=== PATIENT | female | born 1975 | race Caucasian/White ===

== ENCOUNTER 2020-03-24 10:00 | Inpatient (IN) | payer OTHER, SELFPAY ==
[2020-03-24] VITALS (15 sets, daily range): BP systolic 92–155; BP diastolic 39–95; PULSE 74–135; RESP 15–26; TEMP 37–39.4; O2SAT 95–100; BMI 53.7; BMI 21.0
--- NOTE | 2020-03-24 10:17 | US_ITS ---
STUDY: ABDOMINAL ULTRASOUND - RIGHT UPPER QUADRANT REASON FOR VISIT: Female, 44 years old pain TECHNIQUE: Ultrasound evaluation of the right upper quadrant was performed with real-time and static connor-scale imaging. TECHNICAL QUALITY: Adequate. COMPARISON: None. FINDINGS: Liver: The liver is enlarged and measures 20.6 cm. There is normal echogenicity of the liver. The bile ducts are within normal limits. There is hepatic color flow. The direction of portal flow is hepatopetal. There is no demonstrated mass lesion. Gallbladder: There is a mild degree of distended gallbladder. The gallbladder wall measures 5 mm. There is a positive sonographic Roque''s sign. There is no pericholecystic fluid. There are no gallstones. Common Bile Duct (C.B.D.): The common bile duct measures 4.0 mm. Pancreas: Normal size of the head, body and tail of the pancreas. There is normal echogenicity of the pancreas. There is no demonstrated pancreatic mass or cyst. Right Kidney: Normal size of the right kidney. The right kidney measures 12 cm x 5.5 cm x 4.9 cm. Normal renal cortex. The right cortex measures 1.8 cm. There is no demonstrated renal mass or cyst. There is no right hydronephrosis. US/Gallbladder IMPRESSION: Distended gallbladder with thickened wall. No evidence of gallstones. Hepatomegaly. Electronically Signed: Ward Crouch, at 12:14 EDT , Service support ,
--- NOTE | 2020-03-24 10:17 | EKG12_ITS ---
Test Reason : Blood Pressure : / mmHG Vent. Rate : 096 BPM Atrial Rate : 096 BPM P-R Int : 160 ms QRS Dur : 088 ms QT Int : 370 ms P-R-T Axes : 005 -07 003 degrees QTc Int : 467 ms Normal sinus rhythm Poor R wave progression Confirmed by CT MELENDEZ, DIANA ([id number]), purchase request editor CARLOS ALBERTO COSTA ([id number]) on 03/25/2020 9:19:11 AM Referred By: CHALINO Confirmed By:DIANA FOFANA MD
--- NOTE | 2020-03-24 10:20 | ED.DCSUM_ITS ---
History of Present Illness Chief Complaint: Abd Pain Informant: Patient Narrative: 44-year-old female arrives with right upper quadrant pain of 3-day duration. Symptoms began on Sunday. Her last solid food was yesterday at noon. She had a shake for dinner. She states that eating makes her upper abdomen hurt worse. She notes diarrhea. She notes a fever of 102. She states she is short of breath from the pain. She denies any cough or rashes. She notes she had a hiatal hernia repair in the past. Reportedly had gone to [place] for this and while there had possible ventricular tachycardia and returned home on amiodarone and Plavix. She saw cardiology here who wanted her to see electrophysiology in [place]. She went to [place] and is on metoprolol. - Past Medical History (1) Hyperlipidemia Status: Chronic (2) Hypertension Status: Chronic (3) Nonrheumatic mitral (valve) insufficiency Status: Chronic (4) Obesity (BMI 30.0-34.9) Status: Chronic (5) Paroxysmal ventricular tachycardia Status: Chronic Past Medical History - Allergies and Home Meds Allergies/Adverse Reactions: Allergies No Known Allergies Allergy (Verified 03/24/20 10:01) Prior records reviewed: Yes Surgical History: - - Hiatal hernia repair Lives: With Family Smoking Status: Never smoker Drugs: None Review of Systems General: Reports: Fever. Denies: Chills, Sweats Eyes: Denies: Visual changes - bilaterally, Diplopia ENT: Denies: Rhinorrhea, Sore throat Cardiovascular: Denies: Chest pain, Palpitations Respiratory: Denies: Dyspnea, Cough, Dyspnea on exertion Gastrointestinal: Reports: Abdominal pain, Nausea, Diarrhea. Denies: Vomiting, Melena, Hematochezia Genitourinary: Denies: Dysuria, Hematuria, Frequency Musculoskeletal: Denies: Back pain, Extremity Pain Skin: Denies: Rash, Wounds Neurological: Denies: Headache, Weakness, Numbness Physical Exam Vital Signs/Narrative: Vital Signs Temp Pulse Resp BP Pulse Ox 03/24/20 10:01 98.6 F 110 H 18 147/95 H 99 Inital Vital Signs reviewed: Yes General: Well nourished, Well developed, Obese, No Acute Distress Head: Normocephalic, Atraumatic Eyes: Perrl, EOMI ENT: Moist mucous membranes, No rhinorrhea Neck: Supple, Nontender Cardiovascular: Regular rate, Regular rhythm, No murmurs Respiratory: No distress, CTA bilaterally, Chest nontender Abdomen: Soft, Nondistended, Normal bowel sounds, Tender - Tender palpation right upper quadrant epigastric and right middle quadrants., Guarding Back: Nontender, Normal Inspection Extremities: Nontender, No edema Skin: Normal color, No rash Neurological: Alert, Oriented x3, Cranial nerves II-XII grossly intact, Normal Strength, Normal Sensation Psychological: Normal affect, Normal Mood Diagnostic/Tx/Re-eval Clinical Impression(s) from Imaging Studies Gallbladder Ultrasound 03/24/20 10:17 IMPRESSION: Distended gallbladder with thickened wall. No evidence of gallstones. Hepatomegaly. Electronically Signed: Ward Crouch, at 12:14 EDT , Service support , Chest X-Ray 03/24/20 10:35 IMPRESSION: Mild cardiomegaly. The lungs are clear. Electronically Signed: Ward Crouch, at 10:47 EDT , Service support , Abdomen/Pelvis CT 03/24/20 12:03 IMPRESSION: Mild hepatomegaly with diffuse fatty infiltration. Mildly distended gallbladder with the minimal thickening of the gallbladder wall. Findings in keeping with acute retrocecal appendicitis with appendicolith. N.B. : The above information has been verbally conveyed by Ward Crouch to Trace De Jesus MD, on 03/24/2020 12:51:24 (ET). Electronically Signed: Ward Crouch, at 12:53 EDT , Service support , Laboratory Last Values WBC 15.9 K/mm3 (4.4-11.0) H 03/24/20 10:35 RBC 5.02 M/mm3 (4.2-5.4) 03/24/20 10:35 Hgb 15.4 g/dL (12.0-15.0) H 03/24/20 10:35 Hct 45.3 % (37-47) 03/24/20 10:35 MCV 90.2 fL (81-99) 03/24/20 10:35 MCH 30.7 pg (27.0-32.0) 03/24/20 10:35 MCHC 34.0 g/dL (32-36) 03/24/20 10:35 RDW Std Deviation 44.9 fl (35.1-43.9) H 03/24/20 10:35 RDW Coeff of Omid 13.5 % (11.6-14.6) 03/24/20 10:35 Plt Count 230 K/mm3 (150-450) 03/24/20 10:35 MPV 9.7 fl (6.2-12.0) 03/24/20 10:35 Immature Gran % (Auto) 0.700 % (0.0-0.9) 03/24/20 10:35 Neut % (Auto) 90.8 % (47-70) H 03/24/20 10:35 Lymph % (Auto) 3.5 % (19-41) L 03/24/20 10:35 [place] % (Auto) 4.5 % (0-10) 03/24/20 10:35 Eos % (Auto) 0.4 % (0-5) 03/24/20 10:35 Baso % (Auto) 0.1 % (0-1) 03/24/20 10:35 Absolute Neuts (auto) 14.4 X10^3/uL (2.0-7.7) H 03/24/20 10:35 Absolute Lymphs (auto) 0.55 X10^3/uL (0.83-4.51) L 03/24/20 10:35 Nucleated RBC % 0 % (0-5) 03/24/20 10:35 Differential Comment SCANNED 03/24/20 10:35 Sodium 136 mmol/L (136-145) 03/24/20 10:35 Potassium 3.6 mmol/L (3.5-5.1) 03/24/20 10:35 Chloride 102 mmol/L (98-107) 03/24/20 10:35 Carbon Dioxide 25.0 mmol/L (21.0-32.0) 03/24/20 10:35 Anion Gap 9 (5-15) 03/24/20 10:35 BUN 6 mg/dL (7-18) L 03/24/20 10:35 Creatinine 0.86 mg/dL (0.55-1.02) 03/24/20 10:35 Estim Creat Clear Calc 64.65 ml/min 03/24/20 10:35 Est GFR (MDRD) Af Amer 91 mL/min (>60) 03/24/20 10:35 Est GFR (MDRD) Non-Af 75 mL/min (>60) 03/24/20 10:35 BUN/Creatinine Ratio 6.9 RATIO (10-20) L 03/24/20 10:35 Glucose 162 mg/dL (74-106) H 03/24/20 10:35 Calcium 8.5 mg/dL (8.5-10.1) 03/24/20 10:35 Total Bilirubin 0.60 mg/dL (0.20-1.00) 03/24/20 10:35 AST 13 U/L (15-37) L 03/24/20 10:35 ALT 17 U/L (13-56) 03/24/20 10:35 Alkaline Phosphatase 80 U/L (45-117) 03/24/20 10:35 Total Protein 7.7 g/dL (6.4-8.2) 03/24/20 10:35 Albumin 3.1 g/dL (3.2-5.0) L 03/24/20 10:35 Globulin 4.6 g/dL (2.2-4.2) H 03/24/20 10:35 Albumin/Globulin Ratio 0.7 RATIO (0.9-2.4) L 03/24/20 10:35 Lipase 33 U/L (73-393) L 03/24/20 10:35 - EKG Initial EKG Interpretation: Sinus Rhythm - KG demonstrates a normal sinus rhythm at a rate of 96 without concerning features of ACS or ectopy - Medical Decision Making Patient has a 16,000 white count. Gallbladder ultrasound was obtained which does not show acute cholecystitis. Therefore a CT of the abdomen pelvis was obtained which demonstrates a retrocecal appendicitis with appendicolith. She is has received Zosyn, morphine, Zofran, and IV fluids. She is remained n.p.o. On-call surgery Dr. Pérez was contacted. Patient's Covid has returned positive. The patient was seen in the emergency department by infectious disease. ED Disposition - Plan for ED Patient: Disposition: [facility] Diagnosis: Acute appendicitis, COVID-19
--- NOTE | 2020-03-24 10:35 | RAD_ITS ---
STUDY: X-RAY CHEST REASON FOR EXAM: Female, 44 years old. Pt thinks she is having a gallbladder attach as well as an appendicitis. Pain since Sunday TECHNIQUE: Single AP portable view of the chest. COMPARISON: None. FINDINGS: The lungs are clear and expanded. There is no demonstrated pleural abnormality. There is mild cardiac enlargement. Normal mediastinum and duane. Normal visualized pulmonary arteries. Normal visualized aortic arch and descending thoracic aorta. Normal visualized thoracic spine. Normal visualized ribs, clavicles, and shoulders. There is no demonstrated abnormality of the visualized soft tissue structures of the upper abdomen. RAD/Chest 1 View (Portable) IMPRESSION: Mild cardiomegaly. The lungs are clear. Electronically Signed: Ward Crouch, at 10:47 EDT , Service support ,
[2020-03-24] MEDS: 0.9% Normal Saline 1,000 ML 1000 ML IV (10:44)
[2020-03-24] MEDS: Morphine 4 MG/ML Syringe IV ×3 (10:45→15:57)
[2020-03-24] MEDS: Ondansetron 4 MG/2 ML Vial IV (10:45)
[2020-03-24 10:49] LABS: Absolute Lymphocyte Count 0.55 X10^3/uL (0.83-4.51); Absolute Neutrophil Count 14.4 X10^3/uL (2.0-7.7); Basophil# 0.02 X10^3/uL; Basophil% 0.1 % (0-1); Eosinophil# 0.07 X10^3/uL; Eosinophils% 0.4 % (0-5); Hematocrit 45.3 % (37-47); Hemoglobin 15.4 g/dL (12.0-15.0); Lymphocyte # 0.55 X10^3/ul (4.0); Lymphocyte % 3.5 % (19-41); Mean Corpuscular Hgb 30.7 pg (27.0-32.0); Mean Corpuscular Volume 90.2 fL (81-99); Mean Platelet Vol. 9.7 fl (6.2-12.0); Monocyte# 0.72 X10^3/uL; Monocyte% 4.5 % (0-10); NRBC Flagged by Analyzer 0 % (0-5); Neutrophil # 14.41 X10^3/uL (2.7-7.7); Neutrophil % 90.8 % (47-70); POSITIVE DIFFERENTIAL YES; POSITIVE MORPHOLOGY YES; Platelet Count 230 K/mm3 (150-450); RBC Distribution Width CV 13.5 % (11.6-14.6); RBC Distribution Width SD 44.9 fl (35.1-43.9); Red Blood Count 5.02 M/mm3 (4.2-5.4); White Blood Count 15.9 K/mm3 (4.4-11.0)
[2020-03-24 10:56] LABS: Differential Indicated SCAN CRITERIA MET
[2020-03-24 11:03] LABS: ALB/GLOB Ratio 0.7 RATIO (0.9-2.4); AST(SGOT) 13 U/L (15-37); Alanine Aminotransfer ALT/SGPT 17 U/L (13-56); Albumin, Serum 3.1 g/dL (3.2-5.0); Alkaline Phosphatase 80 U/L (45-117); Anion Gap 9 (5-15); BUN 6 mg/dL (7-18); BUN/Creat Ratio 6.9 RATIO (10-20); Calcium,Total 8.5 mg/dL (8.5-10.1); Chloride 102 mmol/L (98-107); Creatinine, Serum 0.86 mg/dL (0.55-1.02); EST Glomerular Filtration Rate 75 mL/min (>60); Est Glom Filt Rate - Afr Amer 91 mL/min (>60); Estimated Creatinine Clearance 64.65 ml/min; Globulin 4.6 g/dL (2.2-4.2); Glucose 162 mg/dL (74-106); Lipase 33 U/L (73-393); Potassium 3.6 mmol/L (3.5-5.1); Protein, Total 7.7 g/dL (6.4-8.2); Sodium Level 136 mmol/L (136-145)
[2020-03-24 11:23] LABS: Differential Comment SCANNED
[2020-03-24] MEDS: 0.9% Normal Saline 1,000 ML 125 ML IV (12:00)
--- NOTE | 2020-03-24 12:03 | CT_ITS ---
STUDY: CT ABDOMEN AND PELVIS WITH CONTRAST REASON FOR EXAM: Female, 44 years old. RUQ ABD PAIN X 3 DAYS, DIARRHEA, FEVER, SOB FROM PAIN. RADIATION DOSAGE (If Supplied By Facility): CTDIvol = ( 15.385 ) mGy, DLP = ( 1274.70 ) mGycm TECHNIQUE: Transaxial images were obtained from the dome of the diaphragm to the symphysis pubis without oral contrast. IV 100mL Isovue-300 was administered. Sagittal and coronal images were reconstructed. Individualized dose optimization techniques were used for this CT. COMPARISON: None. FINDINGS: Increased markings at the lung bases more prominent at the left lung base follow-up is recommended. The visualized portions of the heart are within normal limits. There is decreased attenuation of the liver consistent with steatosis. Mildly distended gallbladder. I suspect sludge within the gallbladder lumen. Mild increased markings in the gallbladder fossa. Normal spleen. Normal pancreas. Normal bilateral adrenal glands. Normal right kidney. Normal left kidney. Normal visualized stomach. Normal small intestine. There are scattered colonic diverticula consistent with diverticulosis. There is a tubular, thick-walled appendix (>7mm), consistent with acute appendicitis. Appendicolith is seen within the appendix. The appendix is retrocecal. Increased markings are seen in the right lower quadrant adjacent to the cecum. Normal abdominal aorta. Normal inferior vena cava. Normal retroperitoneum. Normal urinary bladder. There is a 3.3 cm x 2.5 cm right ovarian cyst. Normal abdominal wall. Normal osseous structures. CT/Abdomen/Pelvis W IV Cont ONLY IMPRESSION: Mild hepatomegaly with diffuse fatty infiltration. Mildly distended gallbladder with the minimal thickening of the gallbladder wall. Findings in keeping with acute retrocecal appendicitis with appendicolith. N.B. : The above information has been verbally conveyed by Ward Crouch to Trace De Jesus MD, on 03/24/2020 12:51:24 (ET). Electronically Signed: Ward Crouch, at 12:53 EDT , Service support ,
[2020-03-24 13:35] LABS: Mucous, Urine 0 SEEN /hpf (<or=2+)
[2020-03-24 13:38] LABS: Color, Urine Straw (Yellow); Glucose, Dipstick Normal (Normal); Ketone-Dipstick 15 mg/dl (Negative); Leukocyte Esterase-Dipstick Negative /ul (Negative); Nitrite-Dipstick Negative (Negative); Occult Blood-Urine 10 /ul (Negative); Protein-Dipstick 30 mg/dl (Negative); Specific Gravity, Urine 1.005 (1.002-1.030); Urine Bilirubin Dipstick Negative (Negative); Urine Clarity Clear (Clear); Urine Urobilinogen Normal (Normal); Urine pH 6.5 (5.0 - 8.0)
[2020-03-24 13:46] LABS: Bacteria RARE /hpf (None Seen); Squamous Epithelial Cells - UA 0-5 SEEN /hpf (5-10); White Blood Cells 0-5 SEEN /hpf (0-5)
[2020-03-24 13:47] LABS: Red Blood Cells-Urine 0-5 SEEN /hpf (0-5)
--- NOTE | 2020-03-24 14:20 | APP_PTH ---
PATIENT: ZAID HOLMAN LOC: [facility] U#:[id number] AGE/SX: 44/F ROOM: [facility] [place] RE03/24/[address]: Dr. Rk Pérez MD : 1975 BED: 1 DIS: 03/27/2020 SPEC #: [id number] RECD: 03/24/20 20:21 STATUS: LATRICE REAnton #: [id number] AMANDA: 03/24/20 14:[address]: Rk Pérez DEPT: SURGICAL PATHOLOGY RECD BY: Azam Correa ENTERED: 03/25/20 07:04 SP TYPE: APPENDIX OTHR DR: MD Dr. Pushpa Woody MD Dr. Robert Leininger, MD Tissues: Appendix, NOS Procedures: Surgery Specimen Level III HEADER OPERATION: Laparoscopic appendectomy PRE-OP DIAGNOSIS: Acute appendicitis TISSUE SUBMITTED: Appendix MICROSCOPIC DIAGNOSIS Appendix, appendectomy: Acute ruptured, hemorrhagic and purulent appendicitis and periappendicitis. RICKY:consuelo 03/26/20 MICROSCOPIC DESCRIPTION Slides are reviewed. GROSS DESCRIPTION Received in fixative is one container labeled with the patient's name and designated appendix. The specimen consists of a J-shaped appendix measuring 9.5 cm in length and up to 1.5 cm in diameter. The attached periappendiceal adipose tissue measures up to 2.5 cm in width. The appendix is congested and hemorrhagic and covered with connor, purulent exudate. The attached periappendiceal adipose tissue also shows extensive congestion and hemorrhage and covered with connor, purulent exudate. No obvious perforation is identified. The lumen contains fecal material. The mucosa is congested and hemorrhagic. No fecalith is identified. Campground Manager sections are submitted in one cassette. / RICKY:consuelo 03/25/20 TC:2 [facility]: [id number]
[2020-03-24 14:37] LABS: International Normalized Ratio 1.1; Prothrombin Time (Protime)PT. 14.1 SECONDS (11.7-14.9)
--- NOTE | 2020-03-24 14:38 | PCM.CONS.GEN ---
Problem List (1) Acute appendicitis Status: Acute (2) COVID-19 Status: Acute (3) Obesity (BMI 30.0-34.9) Status: Chronic (4) Hyperlipidemia Status: Chronic (5) Hypertension Status: Chronic Reason for Consult Date of Consultation: 03/24/20 Reason for Consultation: COVID-19, preoperative and postoperative medical management. History of Present Illness: The patient is a 44 year old F with past medical history as mentioned above presented to the emergency room because of abdominal pain. Her symptoms started 4 days ago with abdominal pain,, right-sided upper abdominal pain, intermittent, dull aching pain, extends down to the right lower quadrant region, aggravated by taking a deep breath and movement as well as subjective fever and without relieving factors. She denied nausea or vomiting. She denied urinary symptoms. She stated that on March 14, 2020, she had a spike of fever and started having mild cough. She states that her parents were sick around the same time and they had fever as well. They were not tested for COVID-19. Today, she denied significant cough, denies shortness of breath. She denied sore throat, sinus nasal congestion. She denied chest pain. In the emergency department, highest temperature was 99.5 Fahrenheit, was slightly tachycardic, blood pressure was stable, pulse ox was 95% on room air. Routine blood work was remarkable for leukocytosis with lymphopenia, blood glucose of 162, LFT was unremarkable. Lipase was normal. Urinalysis showed no evidence of acute cystitis. COVID-19 PCR was positive. Chest x-ray showed cardiomegaly, probable left base atelectasis, no obvious infiltrate. Ultrasound gallbladder revealed normal bile ducts, moderately distended gallbladder, positive Roque sign, no gallstones and no pericholecystic fluid, CBD diameter was [address] scan abdomen and pelvis with IV contrast revealed acute retrocecal appendicitis with appendicolith. She is being admitted for acute appendicitis for surgery and also for COVID-19 for treatment. Past Medical History Past Medical History (Chronic Problems): Chronic Problems (Last Updated 07/17/17 @ 15:40 by Giselle Becerra) Hypothyroidism (Chronic) Obesity (BMI 30.0-34.9) (Chronic) Nonrheumatic mitral (valve) insufficiency (Chronic) Hyperlipidemia (Chronic) Paroxysmal ventricular tachycardia (Chronic) Hypertension (Chronic) Medical History: Medical History (Last Updated 07/17/17 @ 15:40 by Giselle Becerra) Obesity (BMI 30.0-34.9) (Chronic) E66.9 Nonrheumatic mitral (valve) insufficiency (Chronic) I34.0 Hyperlipidemia (Chronic) E78.5 Paroxysmal ventricular tachycardia (Chronic) I47.2 Hypertension (Chronic) I10 Hiatal hernia K44.9 Hypothyroidism E03.9 Allergies No Known Allergies Allergy (Verified 03/24/20 10:01) Home Medications: Ambulatory Orders Medication Instructions Recorded amlodipine 5 mg tablet 5 mg PO DAILY 07/17/17 Aspirin [Aspirin EC] 81 mg PO DAILY@0800 03/24/20 Ibuprofen 800 mg PO DAILY PRN PRN 03/24/20 Levothyroxine Sodium [Synthroid] 180 mcg PO DAILY 03/24/20 Metoprolol(XL)Succ [Toprol Xl 50 mg PO DAILY 03/24/20 (Beta Mady)] Surgical History: - - Hiatal hernia repair. 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 Paloma Pepe MD) Father Heart disease Sister Hypertension Review of Systems Constitutional: Reports: Fever. Denies: Anorexia, Chills, Weakness Eyes: Denies: Blurred vision, Double vision, Drainage, Redness HEENT: Denies: Difficulty Hearing, Ear Pain, Eye Pain, Nasal Congestion, Sore Throat Cardiovascular: Denies: Chest Pain, Chest Pressure, Edema, Heaviness, Light Headedness, Palpitations, Syncope Respiratory: Reports: Cough. Denies: Hemoptysis, Pleuritic Pain, Shortness of Breath, Sputum production, Wheezing Gastrointestinal: Reports: Abdominal Pain. Denies: Constipation, Diarrhea, Nausea, Vomiting Genitourinary: Denies: Dysuria, Frequency, Hematuria Musculoskeletal: Denies: Arm Pain, Back Pain, Foot Pain Skin: Denies: Dryness, Rash Neurological: Denies: Balance problems, Double vision, Change in Speech, Slurred speech, Confusion, Headaches, Numbness Psychiatric: Denies: Anxiety, Depression Endocrine: Denies: Change in Body Habitus, Polydipsia, Polyuria Patient Problems: Active and Suspected Problems (Last Updated 07/17/17 @ 15:40 by Giselle Becerra) Acute appendicitis (Acute) COVID-19 (Acute) - Physical Exam Vitals/I&O's: Vital Signs Temp Pulse Resp BP Pulse Ox 99.1 F 99 18 134/62 H 95 03/24/20 13:35 03/24/20 13:35 03/24/20 13:35 03/24/20 13:35 03/24/20 13:35 Oxygen Delivery Method Room Air Weight: 294 lb Body Mass Index (BMI) 53.7 Intake and Output for Last 24 Hours 03/22/20 03/23/20 03/24/20 23:59 23:59 23:59 Intake Total 1000 / 1000 Balance 1000 / 1000 General: Alert, Oriented x3, Cooperative, No apparent distress HEENT: Atraumatic, PERRLA, EOMI, Normocephalic Oral: Moist Mucosa, No Gingival or Mucosal Lesions/ Ulcerations Neck: Supple, No JVD, Negative Carotid Bruits, Trachea Midline, Thyroid Normal Size and Texture Lungs: Clear to auscultation, No rhonchi, No wheeze, No rales, Diminished, - - Diminished breath sounds at the bases, otherwise clear. Cardiovascular: Regular rate, Regular Rhythm, Normal S1, Normal S2, PMI Normal, Tachycardic Abdomen: Bowel Sounds Present, Soft, Non-Distended, No Hepato-splenomegaly, Obese, Tender - Right lower quadrant/right lumbar tenderness, rebound tenderness, guarding. Extremities: No clubbing, No cyanosis, No edema Skin: No rashes, No breakdown Lymphatic: No Cervical, Supraclavicular, or Inguinal Adenopathy Neurological: Cranial nerves II-XII grossly intact, Motor Exam 5/5 strength throughout Psych/Mental Status: Normal Affect, Appropriate, Alert and oriented to time, place, person, mood and affect Laboratory Results 03/24/20 10:35: COVID-19 (SENDY) Detected 03/24/20 10:35: WBC 15.9 H, RBC 5.02, Hgb 15.4 H, Hct 45.3, MCV 90.2, MCH 30.7, MCHC 34.0, RDW Std Deviation 44.9 H, RDW Coeff of Omid 13.5, Plt Count 230, MPV 9.7, Immature Gran % (Auto) 0.700, Neut % (Auto) 90.8 H, Lymph % (Auto) 3.5 L, [place] % (Auto) 4.5, Eos % (Auto) 0.4, Baso % (Auto) 0.1, Absolute Neuts (auto) 14.4 H, Absolute Lymphs (auto) 0.55 L, Nucleated RBC % 0, Differential Comment SCANNED 03/24/20 10:35: Sodium 136, Potassium 3.6, Chloride 102, Carbon Dioxide 25.0, Anion Gap 9, BUN 6 L, Creatinine 0.86, Estim Creat Clear Calc 64.65, Est GFR (MDRD) Af Amer 91, Est GFR (MDRD) Non-Af 75, BUN/Creatinine Ratio 6.9 L, Glucose 162 H, Calcium 8.5, Total Bilirubin 0.60, AST 13 L, ALT 17, Alkaline Phosphatase 80, Total Protein 7.7, Albumin 3.1 L, Globulin 4.6 H, Albumin/Globulin Ratio 0.7 L, Lipase 33 L 03/24/20 10:35: PT Pending, INR Pending, D-Dimer Quant (PE/DVT) Pending 03/24/20 10:35: Troponin I Pending 03/24/20 13:20: Urine Color Straw, Urine Clarity Clear, Urine pH 6.5, Ur Specific [place] 1.005, Urine Protein 30 H, Urine Glucose (UA) Normal, Urine Ketones 15 H, Urine Occult Blood 10 H, Urine Nitrite Negative, Urine Bilirubin Negative, Urine Urobilinogen Normal, Ur Leukocyte Esterase Negative, Urine RBC 0-5 SEEN, Urine WBC 0-5 SEEN, Ur Squamous Epith Cells 0-5 SEEN, Urine Bacteria RARE, Urine Mucus 0 SEEN Clinical Impression(s) from Imaging Studies Gallbladder Ultrasound 03/24/20 10:17 IMPRESSION: Distended gallbladder with thickened wall. No evidence of gallstones. Hepatomegaly. Electronically Signed: Ward Crouch, at 12:14 EDT , Service support , Chest X-Ray 03/24/20 10:35 IMPRESSION: Mild cardiomegaly. The lungs are clear. Electronically Signed: Ward Crouch, at 10:47 EDT , Service support , Abdomen/Pelvis CT 03/24/20 12:03 IMPRESSION: Mild hepatomegaly with diffuse fatty infiltration. Mildly distended gallbladder with the minimal thickening of the gallbladder wall. Findings in keeping with acute retrocecal appendicitis with appendicolith. N.B. : The above information has been verbally conveyed by Ward Crouch to Trace De Jesus MD, on 03/24/2020 12:51:24 (ET). Electronically Signed: Ward Crouch, at 12:53 EDT , Service support , ADDENDUM: 03/24/20 1300 IMPRESSION: Mild hepatomegaly with diffuse fatty infiltration. Mildly distended gallbladder with the minimal thickening of the gallbladder wall. Findings in keeping with acute retrocecal appendicitis with appendicolith. N.B. : The above information has been verbally conveyed by Ward Crouch to Trace De Jesus MD, on 03/24/2020 12:51:24 (ET). Electronically Signed: Ward Crouch, at 12:53 EDT , Service support , Current Medications Sodium Chloride () 1,000 mls @ 125 mls/hr IV .Q8H JESUSITA Last Admin: 03/24/20 12:00 Dose: 125 mls/hr Documented by: Assessment/Plan All Active Problems (Last Updated 07/17/17 @ 15:40 by Giselle Becerra) Acute appendicitis (Acute) COVID-19 (Acute) This is a 44 years old female patient presented to the emergency room because of abdominal pain, found to have acute retrocecal appendicitis and she is going for surgery, found to have COVID-19 positive and I was asked to see the patient for COVID-19, preoperative and postoperative medical management. #1 acute retrocecal appendicitis/sepsis: Patient was tachycardic, having leukocytosis with source of infection. Ultrasound gallbladder and CT scan abdomen pelvis reviewed. Currently, she is afebrile, slightly tachycardic, blood pressure stable, pulse ox is maintained on room air. EKG revealed sinus tachycardia, no other acute findings. Chest x-ray with mild cardiomegaly, no obvious infiltrate. General surgery is on the case and patient is going for surgery. #2 acute COVID-19 pneumonia: Apparently, patient started having symptoms of fever and cough on March 14, 2020, her parents were sick at the same time but nobody was tested for COVID-19. Currently, she denied shortness of breath, reported mild cough. Chest x-ray reviewed as above. D-dimer was elevated. Plan: CTA chest to rule out PE, pro time and INR, troponin, BNP, start IV Decadron, infectious disease consult. #3 hyperglycemia: Without history of diabetes. Blood glucose is 162. Plan: Check hemoglobin A1c, Accu-Cheks every 6 hours, insulin sliding scale as patient will be on IV Decadron. #4 hypertension: Blood pressure stable, continue metoprolol and Norvasc. #5 hypothyroidism: Continue levothyroxine. #6 history of paroxysmal VT: Currently, she is in sinus tachycardia. Blood pressure stable. Patient denied any chest pain or shortness of breath. Serum electrolytes are within normal limits. Plan for telemetry, monitor. #7 DVT prophylaxis: Subcu Lovenox, can be started after surgery. This note was generated with [employer] dictation software. It may contain incorrect words, spelling, and punctuation that were not noted in checking the note before signing. Inpatient E&M: 16812 Init Hosp L3
[2020-03-24 14:45] LABS: D-Dimer Quantitative (DVT/PE) 1.04 FEU/ug/m (0.27-0.49)
[2020-03-24 15:09] LABS: Hemoglobin A1c 5.6 % (3.8-5.6)
[2020-03-24 15:17] LABS: BNP,B-Type NATRIURETIC PEPTIDE 155.6 pg/mL (0-100)
--- NOTE | 2020-03-24 15:38 | PCM.HP.ID ---
Problem List (1) COVID-19 Status: Acute Reason for Consult: covid Consulted by: Dr. Pérez History of Present Illness: The patient is a 44 year old F with h/o obesity, presented to ED today with 3-4 days of progressive R sided abd pain associated with loss of appetite, not feeling well, fever. Reports starting 03/12 had fever, aches, cough, dyspnea, loss of taste/smell, and headache. Lives with parents who had similar symptoms at that time. None were tested, all recovered. She had her symptoms resolve prior to abd pain starting. Came to ED, CT showed appendicitis, given dose of zosyn, covid (+), placed in isolation. Full ROS performed and neg except as noted above. - Medical History Past Medical History (Chronic Problems): Chronic Problems (Last Updated 07/17/17 @ 15:40 by Giselle Becerra) Hypothyroidism (Chronic) Obesity (BMI 30.0-34.9) (Chronic) Nonrheumatic mitral (valve) insufficiency (Chronic) Hyperlipidemia (Chronic) Paroxysmal ventricular tachycardia (Chronic) Hypertension (Chronic) Allergies/Adverse Reactions: Allergies No Known Allergies Allergy (Verified 03/24/20 10:01) Home Medications: Ambulatory Orders Medication Instructions Recorded amlodipine 5 mg tablet 5 mg PO DAILY 07/17/17 Aspirin [Aspirin EC] 81 mg PO DAILY@0800 03/24/20 Ibuprofen 800 mg PO DAILY PRN PRN 03/24/20 Levothyroxine Sodium [Synthroid] 180 mcg PO DAILY 03/24/20 Metoprolol(XL)Succ [Toprol Xl 50 mg PO DAILY 03/24/20 (Beta Mady)] - Social History SMOKING STATUS:: Never smoker Vital Signs Temp Pulse Resp BP Pulse Ox 99.1 F 99 18 134/62 H 95 03/24/20 13:35 03/24/20 13:35 03/24/20 13:35 03/24/20 13:35 03/24/20 13:35 Oxygen Delivery Method Room Air Weight: 133.356 kg Body Mass Index (BMI) 53.7 Laboratory Tests Past 24 Hrs 03/24/20 03/24/20 03/24/20 10:35 10:35 10:35 WBC 15.9 H RBC 5.02 Hgb 15.4 H Hct 45.3 MCV 90.2 MCH 30.7 MCHC 34.0 RDW Std Deviation 44.9 H RDW Coeff of Omid 13.5 Plt Count 230 MPV 9.7 Immature Gran % (Auto) 0.700 Neut % (Auto) 90.8 H Lymph % (Auto) 3.5 L [place] % (Auto) 4.5 Eos % (Auto) 0.4 Baso % (Auto) 0.1 Absolute Neuts (auto) 14.4 H Absolute Lymphs (auto) 0.55 L Nucleated RBC % 0 Differential Comment SCANNED PT INR D-Dimer Quant (PE/DVT) Sodium 136 Potassium 3.6 Chloride 102 Carbon Dioxide 25.0 Anion Gap 9 BUN 6 L Creatinine 0.86 Estim Creat Clear Calc 64.65 Est GFR (MDRD) Af Amer 91 Est GFR (MDRD) Non-Af 75 BUN/Creatinine Ratio 6.9 L Glucose 162 H Hemoglobin A1c Calcium 8.5 Total Bilirubin 0.60 AST 13 L ALT 17 Alkaline Phosphatase 80 Troponin I B-Natriuretic Peptide Total Protein 7.7 Albumin 3.1 L Globulin 4.6 H Albumin/Globulin Ratio 0.7 L Lipase 33 L Urine Color Urine Clarity Urine pH Ur Specific [place] Urine Protein Urine Glucose (UA) Urine Ketones Urine Occult Blood Urine Nitrite Urine Bilirubin Urine Urobilinogen Ur Leukocyte Esterase Urine RBC Urine WBC Ur Squamous Epith Cells Urine Bacteria Urine Mucus COVID-19 (SENDY) Detected 03/24/20 03/24/20 03/24/20 10:35 10:35 10:35 WBC RBC Hgb Hct MCV MCH MCHC RDW Std Deviation RDW Coeff of Omid Plt Count MPV Immature Gran % (Auto) Neut % (Auto) Lymph % (Auto) Town[place] % (Auto) Eos % (Auto) Baso % (Auto) Absolute Neuts (auto) Absolute Lymphs (auto) Nucleated RBC % Differential Comment PT 14.1 INR 1.1 D-Dimer Quant (PE/DVT) 1.04 H* Sodium Potassium Chloride Carbon Dioxide Anion Gap BUN Creatinine Estim Creat Clear Calc Est GFR (MDRD) Af Amer Est GFR (MDRD) Non-Af BUN/Creatinine Ratio Glucose Hemoglobin A1c 5.6 Calcium Total Bilirubin AST ALT Alkaline Phosphatase Troponin I < 0.015 B-Natriuretic Peptide Total Protein Albumin Globulin Albumin/Globulin Ratio Lipase Urine Color Urine Clarity Urine pH Ur Specific [place] Urine Protein Urine Glucose (UA) Urine Ketones Urine Occult Blood Urine Nitrite Urine Bilirubin Urine Urobilinogen Ur Leukocyte Esterase Urine RBC Urine WBC Ur Squamous Epith Cells Urine Bacteria Urine Mucus COVID-19 (SENDY) 03/24/20 03/24/20 10:35 13:20 WBC RBC Hgb Hct MCV MCH MCHC RDW Std Deviation RDW Coeff of Omid Plt Count MPV Immature Gran % (Auto) Neut % (Auto) Lymph % (Auto) [place] % (Auto) Eos % (Auto) Baso % (Auto) Absolute Neuts (auto) Absolute Lymphs (auto) Nucleated RBC % Differential Comment PT INR D-Dimer Quant (PE/DVT) Sodium Potassium Chloride Carbon Dioxide Anion Gap BUN Creatinine Estim Creat Clear Calc Est GFR (MDRD) Af Amer Est GFR (MDRD) Non-Af BUN/Creatinine Ratio Glucose Hemoglobin A1c Calcium Total Bilirubin AST ALT Alkaline Phosphatase Troponin I B-Natriuretic Peptide 155.6 H Total Protein Albumin Globulin Albumin/Globulin Ratio Lipase Urine Color Straw Urine Clarity Clear Urine pH 6.5 Ur Specific [place] 1.005 Urine Protein 30 H Urine Glucose (UA) Normal Urine Ketones 15 H Urine Occult Blood 10 H Urine Nitrite Negative Urine Bilirubin Negative Urine Urobilinogen Normal Ur Leukocyte Esterase Negative Urine RBC 0-5 SEEN Urine WBC 0-5 SEEN Ur Squamous Epith Cells 0-5 SEEN Urine Bacteria RARE Urine Mucus 0 SEEN COVID-19 (SENDY) - Other Studies Radiology: [] reviewed Other Studies: [] Route of nutrition/ use of supplements: [] Nutritional Intake: [] IV Site: [] [place]aza Catheter: [] - Physical Exam General: Alert, Oriented x3, Cooperative HEENT: Atraumatic, PERRLA, EOMI Neck: Supple, No Nodes Lungs: Clear to auscultation, Normal air movement Cardiovascular: Regular rate, Regular Rhythm Abdomen: Soft, Non-Distended, Obese, Tender - mild R sided Extremities: No edema Skin: No rashes IV Site: Peripheral, without redness Musculoskeletal: No Tenderness to Palpation of Joints or Extremities Neurological: Cranial nerves II-XII grossly intact - Assessment/Plan Antibiotics: [] Assessment/Plan: [] Active and Suspected Problems (Last Updated 07/17/17 @ 15:40 by Giselle Becerra) Acute appendicitis (Acute) COVID-19 (Acute) acute appendicitis - given dose of zosyn, plan is for OR with Dr. Pérez. Recommend N95 in OR. Recommend normal DVT prophylaxis. covid - sx started on 03/12/10, appears to have completely recovered. Covid pcr (+) here, but likely no longer infectious. No hypoxia/dyspnea/cough here, so no need for dex or CTA chest. Would keep in isolation at least for now. Will follow, thank you, d/w Dr. Pérez, Dr. De Jesus, and Dr. Pepe.
--- NOTE | 2020-03-24 16:14 | HP.PCM_ITS ---
Problem List (1) COVID-19 Status: Acute History of Present Illness Date of Admission: 03/24/20 The patient is a 44 year old F who I have been asked to see through the emergency room to surgically take care of a advanced retrocecal appendicitis. The patient has had abdominal pain for for 4 days. Because of progressive severity of the pain she presented to the emergency room today. A gallbladder ultrasound was obtained suggesting a distended gallbladder with a wall that papi ures 5 mm. However the patient is morbidly obese with a body weight of 294 pounds and a BMI of 53.8. She has significant steatosis of the liver. Common bile duct is 4 mm. Liver function tests were normal. She subsequently had a CT scan of the abdomen and pelvis. Increased markings in the lung best uses prominent left lung base noted. Steatosis of the liver. Mildly distended gallbladder. Possible sludge. The patient was prescribed hydrocortisone suppositories. He states that since that ER visit he maybe has had one slight episode of bleeding. He claims that it is slightly on the stool and on the tissue paper occasionally in the commode. He has a little bit of discomfort having a bowel movement but not significantly. He does believe that it is fairly red in nature the bloodColonic diverticulosis. Thick-walled appendix consistent with acute appendicitis. Retrocecal in position. Appendicolith seen. Increased markings of the right lower quadrant adjacent to the cecum consistent with acute severe inflammatory change. Patient is white count of 15.9 with a hemofifteen 0.4 [place] crit 45.3 platelet count 230,000 90% segs. PT INR normal. D-dimer is 1.04 elevated. BUN is 6 creatinine 0.86. Hemoglobin A1c 5.6. B natruretic peptide 155. COVID-19 was positive detected. Patient was seen in consultation by the hospitalist service identifying the acute appendicitis and acute COVID-19 and super morbid obesity with a BMI of 53.8 and hyperlipidemia and hypertension. She was noted to have a pulse ox of 95% on room air. Chest x-ray showed cardiomegaly and probable left basilar atelectasis. By report apparently symptom complex started March 14 for her Covid. Infectious disease, salt was also obtained. She has had a history of ventricular tachycardia but not currently. Dr. Kyle has spoken with me. Notes acute appendicitis. Recommends an N95 in the OR and normal DVT prophylaxis. He suggested the Covid symptoms started perhaps March 12 may have resolved and is not currently infectious. Precautions need to continue to be observed. It is not felt that dexamethasone or CT of the chest is required at this time. Past Medical History Past Medical History (Chronic Problems): Chronic Problems (Last Updated 07/17/17 @ 15:40 by Giselle Becerra) Hypothyroidism (Chronic) Obesity (BMI 30.0-34.9) (Chronic) Nonrheumatic mitral (valve) insufficiency (Chronic) Hyperlipidemia (Chronic) Paroxysmal ventricular tachycardia (Chronic) Hypertension (Chronic) Medical History: Medical History (Last Updated 07/17/17 @ 15:40 by Giselle Becerra) Obesity (BMI 30.0-34.9) (Chronic) E66.9 Nonrheumatic mitral (valve) insufficiency (Chronic) I34.0 Hyperlipidemia (Chronic) E78.5 Paroxysmal ventricular tachycardia (Chronic) I47.2 Hypertension (Chronic) I10 Hiatal hernia K44.9 Hypothyroidism E03.9 Allergies No Known Allergies Allergy (Verified 03/24/20 10:01) Home Medications: Ambulatory Orders Medication Instructions Recorded amlodipine 5 mg tablet 5 mg PO DAILY 07/17/17 Aspirin [Aspirin EC] 81 mg PO DAILY@0800 03/24/20 Ibuprofen 800 mg PO DAILY PRN PRN 03/24/20 Levothyroxine Sodium [Synthroid] 180 mcg PO DAILY 03/24/20 Metoprolol(XL)Succ [Toprol Xl 50 mg PO DAILY 03/24/20 (Beta Mady)] Surgical History: - - Hiatal hernia repair. 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 Paloma Pepe MD) Father Heart disease Sister Hypertension Review of Systems Constitutional: Reports: Chills, Fever, Night Sweats HEENT: Denies: Difficulty Swallowing Respiratory: Denies: Cough, Shortness of Breath Gastrointestinal: Reports: Abdominal Pain, - - Patient complains of epigastric abdominal pain and right-sided abdominal pain Musculoskeletal: Denies: Leg Pain Skin: Denies: Jaundice Endocrine: Denies: Change in Body Habitus VTE Information - Inpt Only VTE Present on Admission: No Patient Problems: Active and Suspected Problems (Last Updated 07/17/17 @ 15:40 by Giselle Becerra) Acute appendicitis (Acute) COVID-19 (Acute) - Physical Exam Vitals/I&O's: Vital Signs Temp Pulse Resp BP Pulse Ox 99.1 F 74 16 134/64 H 98 03/24/20 13:35 03/24/20 16:09 03/24/20 16:09 03/24/20 16:09 03/24/20 16:09 Oxygen Delivery Method Room Air Weight: 294 lb Body Mass Index (BMI) 53.7 Intake and Output for Last 24 Hours 03/22/20 03/23/20 03/24/20 23:59 23:59 23:59 Intake Total 1100 / 1100 Balance 1100 / 1100 General: Alert, Cooperative, No apparent distress HEENT: Atraumatic Neck: Supple Lungs: Clear to auscultation, - - Diminished respiratory excursion, diminished bibasilar breath sounds Cardiovascular: Regular rate, Regular Rhythm Abdomen: Soft, - - Markedly overweight, difficult to palpate internal organs. Markedly tender to palpation right mid abdomen and lower quadrant with guarding and rebound, absent bowel sounds, mild epigastric tenderness Extremities: No Calf Tenderness Psych/Mental Status: Normal Affect Laboratory Results 03/24/20 10:35: COVID-19 (SENDY) Detected 03/24/20 10:35: WBC 15.9 H, RBC 5.02, Hgb 15.4 H, Hct 45.3, MCV 90.2, MCH 30.7, MCHC 34.0, RDW Std Deviation 44.9 H, RDW Coeff of Omid 13.5, Plt Count 230, MPV 9.7, Immature Gran % (Auto) 0.700, Neut % (Auto) 90.8 H, Lymph % (Auto) 3.5 L, [place] % (Auto) 4.5, Eos % (Auto) 0.4, Baso % (Auto) 0.1, Absolute Neuts (auto) 1 4.4 H, Absolute Lymphs (auto) 0.55 L, Nucleated RBC % 0, Differential Comment SCANNED 03/24/20 10:35: Sodium 136, Potassium 3.6, Chloride 102, Carbon Dioxide 25.0, Anion Gap 9, BUN 6 L, Creatinine 0.86, Estim Creat Clear Calc 64.65, Est GFR (MDRD) Af Amer 91, Est GFR (MDRD) Non-Af 75, BUN/Creatinine Ratio 6.9 L, Glucose 162 H, Calcium 8.5, Total Bilirubin 0.60, AST 13 L, ALT 17, Alkaline Phosphatase 80, Total Protein 7.7, Albumin 3.1 L, Globulin 4.6 H, Albumin/Globulin Ratio 0.7 L, Lipase 33 L 03/24/20 10:35: PT 14.1, INR 1.1, D-Dimer Quant (PE/DVT) 1.04 H* 03/24/20 10:35: Troponin I < 0.015 03/24/20 10:35: Hemoglobin A1c 5.6 03/24/20 10:35: B-Natriuretic Peptide 155.6 H 03/24/20 13:20: Urine Color Straw, Urine Clarity Clear, Urine pH 6.5, Ur Specific [place] 1.005, Urine Protein 30 H, Urine Glucose (UA) Normal, Urine Ketones 15 H, Urine Occult Blood 10 H, Urine Nitrite Negative, Urine Bilirubin Negative, Urine Urobilinogen Normal, Ur Leukocyte Esterase Negative, Urine RBC 0-5 SEEN, Urine WBC 0-5 SEEN, Ur Squamous Epith Cells 0-5 SEEN, Urine Bacteria RARE, Urine Mucus 0 SEEN 03/24/20 16:03: Lactic Acid Pending Current Medications Sodium Chloride () 1,000 mls @ 125 mls/hr IV .Q8H JESUSITA Last Admin: 03/24/20 12:00 Dose: 125 mls/hr Documented by: Assessment/Plan All Active Problems (Last Updated 07/17/17 @ 15:40 by Giselle Becerra) Acute appendicitis (Acute) COVID-19 (Acute) 44-year-old female with presentation and findings consistent with severe retrocecal appendicitis likely with rupture and significant periappendiceal and pericecal inflammatory changes. Unfortunately appendicolith is present making nonoperative therapy likely not successful. In addition she has COVID-19 detected. I very much appreciate the assistance of Dr. Kyle and in her preoperative and perioperative management. I have discussed with the patient recommendations for an attempt at a laparoscopic appendectomy. She is aware of the markedly increased risk secondary to duration of the illness body habitus and COVID-19 detection. No guarantees have been offered for success. She is aware of potential need to simply provide drainage or convert to an open procedure. She has had an opportunity to ask and have questions answered. I have asked for urgent access to the operating rooms but at this time he instructed that they currently are full. We will proceed with definitive surgery when permitted. Rk Pérez M.D., F.A.C.S.
[2020-03-24 16:30] LABS: Lactic Acid 1.1 mmol/L (0.4-1.9)
[2020-03-24 17:25] LABS: Internal QC Validated? YES +Cl - CLEAR BKGD; Pregnancy, Urine Negative Negative
[2020-03-24] MEDS: Bupivacaine Mpf 0.5% 30 ML VIAL (18:50)
--- NOTE | 2020-03-24 19:17 | OP.PCM_ITS ---
Problem List (1) COVID-19 Status: Acute Report of Operation Date of Procedure: 03/24/20 Pre-Operative Diagnosis: Perforated appendicitis Post-Operative Diagnosis: Gangrenous perforated appendicitis Surgery/Procedure Performed:: Laparoscopic appendectomy with drainage Description of Surgical Findings:: Timeout and informed consent was obtained. 44-year-old female with 4-day history of severe appendicitis with peritoneal signs and clinical service for suspicion of perforated appendicitis as well as Covid detected was taken to the operating room. Precautions were taken. Patient received 4.5 g of Zosyn in the emergency department. After general endotracheal ovation and anesthesia she under went prepping of the abdomen. 0.5% Marcaine was used as local anesthetic. Skin sites were preanesthetized. A vertical infraumbilical incision was created. The patient was noted to be significantly overweight with a BMI of 53.8. All parts of this operation were technically extraordinarily difficult secondary to body habitus. The infraumbilical fascia was identified holding sutures of 0 Vicryl placed varies needle inserted saline drop test performed the abdomen was insufflated with CO2 to a pressure of 15 mmHg pressure. 12 mm trocar was inserted. Under laparoscopic visualization 5 mm ports were placed in the low mid abdomen in the right upper quadrant. There was cloudy fluid in the abdomen. There appeared to be an enlarged right ovary with cyst adjacent. There appeared to be fluid all along the right pericolic gutter and extended up to the liver. The fluid surrounded the gallbladder the gallbladder had adherence of omentum to it. Gallbladder had somewhat of a discoloration but otherwise appeared to be soft and I felt that this likely was reactivity from the appendix. There was a foul odor. Upon blunt dissection the terminal ileum and cecum it became evident that there was a gangrenous perforated appendicitis with stool. That was aspirated. Tediously and carefully blunt dissection was performed until the appendix could be identified flush with the cecum and a 45 Grace stapler was used to transect it. I then needed to use a harmonic scalpel to carefully transect the necrotic mesoappendix. The appendix was then placed in a retrieval bag. There were right upper quadrant right pericolic area and pelvis were irrigated and aspirated free. A 15 round CARLA drain was exited through the infraumbilical port and it was placed to the pelvis and right pericolic gutter. Greater omentum was placed overlying the cecal base. The drain was secured skin with 3-0 nylon. Then the abdomen was allowed to deflate of the CO2 through an antiviral valve. Trocar was removed. The appendix was removed at the umbilicus fascial enlargement was required to the amount of inflammatory size of the appendix. There was a terrible odor upon removing the appendix consistent with his gangrenous nature. I then approximated the fascia iliacus with a running 0 Vicryl. Because of the patient's obesity I elected only to partially close the umbilical skin and then I placed 1/2 inch Nu Gauze wick to the base. I felt that she was at significant risk for postoperative wou nd infection. The final 5 Grace port site in the right upper quadrant was closed with interrupted 4 Monocryl subdermal stitch. Dressings were applied. Sponge and instrument and needle counts reported to surgically correct. The patient was subsequently taken to the recovery area. Specimens appendix. Drains 15 round CARLA to the right pericolic space and 1/2 inch Nu Gauze wick drain to the umbilical wound. Blood loss minimal. Rk Pérez M.D., F.A.C.S. Type of Anesthesia:: General Anesthesiologist: Apollo Dorantes
[2020-03-24] MEDS: 0.9% Normal Saline 1,000 ML 100 ML IV (20:30)
[2020-03-24] MEDS: Propofol 10MG/Ml 1,000 MG/100 ML Bottle 8.1 MG CONT INF (20:30)
--- NOTE | 2020-03-24 21:20 | CON.PCM_ITS ---
Reason for Consult History of Present Illness: The patient is a 44 year old F [] Past Medical History Past Medical History (Chronic Problems): Chronic Problems (Last Updated 07/17/17 @ 15:40 by Giselle Becerra) Hypothyroidism (Chronic) Obesity (BMI 30.0-34.9) (Chronic) Nonrheumatic mitral (valve) insufficiency (Chronic) Hyperlipidemia (Chronic) Paroxysmal ventricular tachycardia (Chronic) Hypertension (Chronic) Medical History: Medical History (Last Updated 07/17/17 @ 15:40 by Giselle Becerra) Obesity (BMI 30.0-34.9) (Chronic) E66.9 Nonrheumatic mitral (valve) insufficiency (Chronic) I34.0 Hyperlipidemia (Chronic) E78.5 Paroxysmal ventricular tachycardia (Chronic) I47.2 Hypertension (Chronic) I10 Hiatal hernia K44.9 Hypothyroidism E03.9 Allergies No Known Allergies Allergy (Verified 03/24/20 10:01) Home Medications: Ambulatory Orders Medication Instructions Recorded amlodipine 5 mg tablet 5 mg PO DAILY 07/17/17 Aspirin [Aspirin EC] 81 mg PO DAILY@0800 03/24/20 Ibuprofen 800 mg PO DAILY PRN PRN 03/24/20 Levothyroxine Sodium [Synthroid] 180 mcg PO DAILY 03/24/20 Metoprolol(XL)Succ [Toprol Xl 50 mg PO DAILY 03/24/20 (Beta Mady)] Surgical History: - - Hiatal hernia repair. 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 Paloma Pepe MD) Father Heart disease Sister Hypertension Patient Problems: Active and Suspected Problems (Last Updated 07/17/17 @ 15:40 by Giselle Becerra) Acute appendicitis (Acute) COVID-19 (Acute) - Physical Exam Vitals/I&O's: Vital Signs Temp Pulse Resp BP Pulse Ox 102.3 F H 106 H 21 H 134/39 H 96 03/24/20 20:46 03/24/20 20:46 03/24/20 20:46 03/24/20 20:46 03/24/20 20:46 Oxygen Delivery Method Mechanical Ventilator Weight: 135.8 kg Body Mass Index (BMI) 21.0 Intake and Output for Last 24 Hours 03/22/20 03/23/20 03/24/20 23:59 23:59 23:59 Intake Total 2099 Output Total Balance 2074 Laboratory Results 03/24/20 10:35: COVID-19 (SENDY) Detected 03/24/20 10:35: WBC 15.9 H, RBC 5.02, Hgb 15.4 H, Hct 45.3, MCV 90.2, MCH 30.7, MCHC 34.0, RDW Std Deviation 44.9 H, RDW Coeff of Omid 13.5, Plt Count 230, MPV 9.7, Immature Gran % (Auto) 0.700, Neut % (Auto) 90.8 H, Lymph % (Auto) 3.5 L, [place] % (Auto) 4.5, Eos % (Auto) 0.4, Baso % (Auto) 0.1, Absolute Neuts (auto) 14.4 H, Absolute Lymphs (auto) 0.55 L, Nucleated RBC % 0, Differential Comment SCANNED 03/24/20 10:35: Sodium 136, Potassium 3.6, Chloride 102, Carbon Dioxide 25.0, Anion Gap 9, BUN 6 L, Creatinine 0.86, Estim Creat Clear Calc 64.65, Est GFR (MDRD) Af Amer 91, Est GFR (MDRD) Non-Af 75, BUN/Creatinine Ratio 6.9 L, Glucose 162 H, Calcium 8.5, Total Bilirubin 0.60, AST 13 L, ALT 17, Alkaline Phosphatase 80, Total Protein 7.7, Albumin 3.1 L, Globulin 4.6 H, Albumin/Globulin Ratio 0.7 L, Lipase 33 L 03/24/20 10:35: PT 14.1, INR 1.1, D-Dimer Quant (PE/DVT) 1.04 H* 03/24/20 10:35: Troponin I < 0.015 03/24/20 10:35: Hemoglobin A1c 5.6 03/24/20 10:35: B-Natriuretic Peptide 155.6 H 03/24/20 13:20: Urine Color Straw, Urine Clarity Clear, Urine pH 6.5, Ur Specific [place] 1.005, Urine Protein 30 H, Urine Glucose (UA) Normal, Urine Ketones 15 H, Urine Occult Blood 10 H, Urine Nitrite Negative, Urine Bilirubin Negative, Urine Urobilinogen Normal, Ur Leukocyte Esterase Negative, Urine RBC 0-5 SEEN, Urine WBC 0-5 SEEN, Ur Squamous Epith Cells 0-5 SEEN, Urine Bacteria RARE, Urine Mucus 0 SEEN 03/24/20 16:03: Lactic Acid 1.1 03/24/20 16:50: Urine Test Negative Current Medications Acetaminophen (Acetaminophen 325 Mg Tablet) 650 mg PO Q6H PRN PRN PRN Reason: Pain Score 1-10 Hydrocodone Bitart/Acetaminophen (Hydrocodone Bitartrate/Apap 5/325 Tablet) 1 - 2 tablet PO Q4H PRN PRN PRN Reason: Pain Score 1-10 Enoxaparin Sodium (Enoxaparin 40 Mg/0.4 Ml Syringe) 40 mg SC DAILY@0600 JESUSITA Sodium Chloride () 250 mls @ 15 mls/hr IV .[id number] PRN PRN Reason: Saline Flush Sodium Chloride () 250 mls @ 15 mls/hr IV .[id number] PRN PRN Reason: Additional IVPB Infusion Sodium Chloride () 1,000 mls @ 100 mls/hr IV .Q10H JESUSITA Piperacillin Sod/Tazobactam (Sod 3.375 gm/ Sodium Chloride) 50 mls @ 12.5 mls/hr IV Q8 JESUSITA Fentanyl Citrate 1,000 mcg/ (Sodium Chloride) 100 mls @ 2.5 mls/hr CONT INF .Q40H JESUSITA; Protocol Propofol (Diprivan) 1,000 mg in 100 mls @ 8.148 mls/hr CONT INF .Q12H JESUSITA; Protocol Morphine Sulfate (Morphine 2 Mg/Ml Syringe) 2 - 4 mg IV Q1H PRN PRN PRN Reason: Pain Score 1-10 Ondansetron HCl (Ondansetron 4 Mg/2 Ml Vial) 4 mg IV Q8H PRN PRN PRN Reason: Nausea Sodium Chloride (0.9% Saline Lock 10 Ml Syringe) 10 - 40 ml IV UD PRN PRN Reason: SALINE FLUSH Assessment/Plan All Active Problems (Last Updated 07/17/17 @ 15:40 by Giselle Becerra) Acute appendicitis (Acute) COVID-19 (Acute)
--- NOTE | 2020-03-24 21:25 | RAD_ITS ---
STUDY: X-RAY - ABDOMEN/PELVIS REASON FOR EXAM: Female, 44 years old. Enteric tube TECHNIQUE: Single AP view of the abdomen / pelvis. COMPARISON: CT 03/24/20 FINDINGS: There is an enteric tube noted with its tip in the stomach. The visualized bowel demonstrates no evidence of obstruction. The visualized osseous structures are within normal limits. RAD/Abdomen Single View (Portable) IMPRESSION: Enteric tube tip in the stomach. No bowel obstruction. Electronically Signed: Anam Dela Cruz, at 21:59 EDT Tel , Service support ,
[2020-03-24] MEDS: Propofol 10MG/Ml 1,000 MG/100 ML Bottle 16.3 MG CONT INF (22:17)
[2020-03-24] MEDS: Acetaminophen 650 MG/20 ML UDC GT (23:15)
[2020-03-24 23:41] LABS: Bedside Glucose 162 mg/dL (70-110)
[2020-03-25] VITALS (26 sets, daily range): BP systolic 85–132; BP diastolic 51–64; PULSE 79–103; RESP 13–28; TEMP 36.5–38.2; O2SAT 89–99
[2020-03-25 04:26] LABS: Absolute Lymphocyte Count 1.32 X10^3/uL (0.83-4.51); Absolute Neutrophil Count 12.5 X10^3/uL (2.0-7.7); Basophil# 0.03 X10^3/uL; Basophil% 0.2 % (0-1); Eosinophil# 0.24 X10^3/uL; Eosinophils% 1.6 % (0-5); Hematocrit 41.7 % (37-47); Hemoglobin 13.5 g/dL (12.0-15.0); Lymphocyte # 1.32 X10^3/ul (4.0); Lymphocyte % 8.7 % (19-41); Mean Corp Hgb Conc 32.4 g/dL (32-36); Mean Corpuscular Hgb 30.4 pg (27.0-32.0); Mean Corpuscular Volume 93.9 fL (81-99); Mean Platelet Vol. 10.1 fl (6.2-12.0); Monocyte# 0.95 X10^3/uL; Monocyte% 6.3 % (0-10); NRBC Flagged by Analyzer 0 % (0-5); Neutrophil # 12.51 X10^3/uL (2.7-7.7); Neutrophil % 82.6 % (47-70); POSITIVE MORPHOLOGY YES; Platelet Count 206 K/mm3 (150-450); RBC Distribution Width CV 14.4 % (11.6-14.6); RBC Distribution Width SD 49.8 fl (35.1-43.9); Red Blood Count 4.44 M/mm3 (4.2-5.4); White Blood Count 15.1 K/mm3 (4.4-11.0)
[2020-03-25 04:28] LABS: Differential Indicated SCAN CRITERIA MET
[2020-03-25 04:36] LABS: Anion Gap 8 (5-15); BUN 8 mg/dL (7-18); BUN/Creat Ratio 7.8 RATIO (10-20); Calcium,Total 6.6 mg/dL (8.5-10.1); Chloride 112 mmol/L (98-107); Creatinine, Serum 1.03 mg/dL (0.55-1.02); EST Glomerular Filtration Rate 61 mL/min (>60); Est Glom Filt Rate - Afr Amer 74 mL/min (>60); Estimated Creatinine Clearance 146.31 ml/min; Glucose 141 mg/dL (74-106); Potassium 3.5 mmol/L (3.5-5.1); Sodium Level 142 mmol/L (136-145)
[2020-03-25 04:55] LABS: Atypical Lymphocyte RARE %; Toxic Granulation RARE
[2020-03-25 04:56] LABS: Differential Comment SCANNED
[2020-03-25 05:27] LABS: CPK Total, Creatine Kinase 67 U/L (26-192); Triglycerides 141 mg/dL
[2020-03-25 05:45] LABS: Allen Test Positive; Base Excess -4 mmol/L (-2 to +2); Bicarbonate 18.4 mmol/L (22-26); Blood Gas Specimen Type ART; FI02 45; Mode AC; O2 Delivery Device AeroMask; PEEP 8; PO2 70 mmHG (75-100); RR 15; SITE R Brach; SO2 96 % (95-99); Total Carbon Dioxide 19 mmol/L; Vt 450; pCO2 21.8 mmHg (35-45); pH 7.54 (7.35-7.45)
[2020-03-25] MEDS: 0.9% Normal Saline 1,000 ML 100 ML IV ×3 (06:03→23:55)
--- NOTE | 2020-03-25 06:06 | PCM.PN.SRG ---
Patient Problems: Active and Suspected Problems (Last Updated 07/17/17 @ 15:40 by Giselle Becerra) Acute appendicitis (Acute) COVID-19 (Acute) Subjective: Postop day 1 Patient on ventilator in ICU. No specific complaints. A [place] and OG tube was placed per medicine. Blood gas is currently being drawn. Patient is denying any significant abdominal pain. - Physical Exam Vitals/I&O's: Vital Signs Temp Pulse Resp BP Pulse Ox 99.3 F H 85 14 111/61 98 03/25/20 05:00 03/25/20 05:50 03/25/20 05:50 03/25/20 05:00 03/25/20 05:50 Oxygen Delivery Method Mechanical Ventilator Weight: 300 lb 4.313 oz Body Mass Index (BMI) 21.0 Intake and Output for Last 24 Hours 03/23/20 03/24/20 03/25/20 23:59 23:59 23:59 Intake Total 2162.88 / 2168.43 1186.20 / 1186.20 Output Total 25 / 340 430 / 430 Balance 2137.88 / 1828.43 756.20 / 756.20 Abdomen: - - Obese, CARLA drain serosanguineous, minimal staining at umbilical drain site Laboratory Results 03/24/20 10:35: COVID-19 ([facility]END[facility]) Detected 03/24/20 10:35: WBC 15.9 H, RBC 5.02, Hgb 15.4 H, Hct 45.3, MCV 90.2, MCH 30.7, MCHC 34.0, RDW Std Deviation 44.9 H, RDW Coeff of Omid 13.5, Plt Count 230, MPV 9.7, Immature Gran % (Auto) 0.700, Neut % (Auto) 90.8 H, Lymph % (Auto) 3.5 L, Hardy % (Auto) 4.5, Eos % (Auto) 0.4, Baso % (Auto) 0.1, Absolute Neuts (auto) 14.4 H, Absolute Lymphs (auto) 0.55 L, Nucleated RBC % 0, Differential Comment SCANNED 03/24/20 10:35: Sodium 136, Potassium 3.6, Chloride 102, Carbon Dioxide 25.0, Anion Gap 9, BUN 6 L, Creatinine 0.86, Estim Creat Clear Calc 64.65, Est GFR (MDRD) Af Amer 91, Est GFR (MDRD) Non-Af 75, BUN/Creatinine Ratio 6.9 L, Glucose 162 H, Calcium 8.5, Total Bilirubin 0.60, AST 13 L, ALT 17, Alkaline Phosphatase 80, Total Protein 7.7, Albumin 3.1 L, Globulin 4.6 H, Albumin/Globulin Ratio 0.7 L, Lipase 33 L 03/24/20 10:35: PT 14.1, INR 1.1, D-Dimer Quant (PE/DVT) 1.04 H* 03/24/20 10:35: Troponin I < 0.015 03/24/20 10:35: Hemoglobin A1c 5.6 03/24/20 10:35: B-Natriuretic Peptide 155.6 H 03/24/20 13:20: Urine Color Straw, Urine Clarity Clear, Urine pH 6.5, Ur Specific [place] 1.005, Urine Protein 30 H, Urine Glucose (UA) Normal, Urine Ketones 15 H, Urine Occult Blood 10 H, Urine Nitrite Negative, Urine Bilirubin Negative, Urine Urobilinogen Normal, Ur Leukocyte Esterase Negative, Urine RBC 0-5 SEEN, Urine WBC 0-5 SEEN, Ur Squamous Epith Cells 0-5 SEEN, Urine Bacteria RARE, Urine Mucus 0 SEEN 03/24/20 16:03: Lactic Acid 1.1 03/24/20 16:50: Urine Test Negative 03/24/20 23:34: POC Glucose 162 H 03/25/20 04:00: WBC 15.1 H, RBC 4.44, Hgb 13.5, Hct 41.7, MCV 93.9, MCH 30.4, MCHC 32.4, RDW Std Deviation 49.8 H, RDW Coeff of Omid 14.4, Plt Count 206, MPV 10.1, Immature Gran % (Auto) 0.600, Neut % (Auto) 82.6 H, Lymph % (Auto) 8.7 L, Hardy % (Auto) 6.3, Eos % (Auto) 1.6, Baso % (Auto) 0.2, Absolute Neuts (auto) 12.5 H, Absolute Lymphs (auto) 1.32, Nucleated RBC % 0, Differential Comment SCANNED, Atypical Lymphocytes RARE, Toxic Granulation RARE 03/25/20 04:00: Sodium 142, Potassium 3.5, Chloride 112 H, Carbon Dioxide 22.0, Anion Gap 8, BUN 8, Creatinine 1.03 H, Estim Creat Clear Calc 146.31, Est GFR (MDRD) Af Amer 74, Est GFR (MDRD) Non-Af 61, BUN/Creatinine Ratio 7.8 L, Glucose 141 H, Calcium 6.6 L 03/25/20 04:00: Total Creatine Kinase 67, Triglycerides 141 03/25/20 05:39: Specimen Type ART, Sample Site R Brach, pH 7.54 H, Bicarbonate Actual 18.4 L, Total CO2 19, Base Excess -4 L, O2 Saturation 96, O2 % 45, ABG pCO2 21.8 L, ABG pO2 70 L, Andrew Test Positive, Respiration Rate 15, O2 Delivery Device AeroMask, Vent Mode AC, Tidal Volume 450, POC PEEP 8 Current Medications Acetaminophen (Acetaminophen 650 Mg/20 Ml Udc) 650 mg GT Q6H PRN PRN PRN Reason: Pain 1-10 or Fever Last Admin: 03/24/20 23:15 Dose: 650 mg Documented by: Hydrocodone Bitart/Acetaminophen (Hydrocodone Bitartrate/Apap 5/325 Tablet) 1 - 2 tablet PO Q4H PRN PRN PRN Reason: Pain Score 1-10 Enoxaparin Sodium (Enoxaparin 40 Mg/0.4 Ml Syringe) 40 mg SC DAILY@0600 [facility] Sodium Chloride () 250 mls @ 15 mls/hr IV .[id number] PRN PRN Reason: Saline Flush Last Infusion: 03/25/20 03:27 Dose: 15 mls/hr Documented by: Sodium Chloride () 250 mls @ 15 mls/hr IV .[id number] PRN PRN Reason: Additional IVPB Infusion Sodium Chloride () 1,000 mls @ 100 mls/hr IV .Q10H [facility] Last Admin: 03/25/20 06:03 Dose: 100 mls/hr Documented by: Piperacillin Sod/Tazobactam (Sod 3.375 gm/ Sodium Chloride) 50 mls @ 12.5 mls/hr IV Q8 [facility] Last Admin: 03/25/20 05:45 Dose: 12.5 mls/hr Documented by: Fentanyl Citrate 1,000 mcg/ (Sodium Chloride) 100 mls @ 2.5 mls/hr CONT INF .Q40H [facility]; Protocol Last Titration: 03/25/20 05:00 Dose: 0 mcg/hr, 0 mls/hr Documented by: Propofol (Diprivan) 1,000 mg in 100 mls @ 8.148 mls/hr CONT INF .Q12H [facility]; Protocol Last Titration: 03/25/20 05:00 Dose: 0 mcg/kg/min, 0 mls/hr Documented by: Morphine Sulfate (Morphine 2 Mg/Ml Syringe) 2 - 4 mg IV Q1H PRN PRN PRN Reason: Pain Score 1-10 Ondansetron HCl (Ondansetron 4 Mg/2 Ml Vial) 4 mg IV Q8H PRN PRN PRN Reason: Nausea Sodium Chloride (0.9% Saline Lock 10 Ml Syringe) 10 - 40 ml IV UD PRN PRN Reason: SALINE FLUSH Medical Necessity - Tobacco Use Smoking Status: Smoker, status unknown Assessment/Plan All Active Problems (Last Updated 07/17/17 @ 15:40 by Giselle Becerra) Acute appendicitis (Acute) COVID-19 (Acute) Nursing will assist with gradual removal of Nu Gauze wick at the umbilicus. We will leave the CARLA drain today. Approximate 100 cc of drainage but it does not appear to be purulent. I would concur with early mobilization particularly ambulation as soon as the patient can be extubated. DVT prophylaxis with Lovenox and sequential venous compression devices instituted. This was in concurrence with my discussion with Dr. Kyle yesterday. Hopefully she is able to be extubated so that she can be transferred out of the intensive care unit in a timely fashion. I appreciate the ongoing medical assistance
--- NOTE | 2020-03-25 06:14 | PCM.DC.GS ---
Discharge Diet: Light diet - advance as tolerated - if you have questions about your diet instructions, please talk to you doctor. Discharge Activity: May Not Drive - for 1 week or while taking narcotic pain medicine. May shower in (days): 1 Lifting Restrictions: 10 pounds Call your doctor if your incision/area has: Continuous Slow Oozing, Sudden Increased Bleeding, Increased Pain/ Swelling, Increased Redness, Foul Smelling Discharge Call your doctor if you observe: Fever of 101 or Higher Suture Line Care: Avoid Pulling/Pushing, Avoid Pinching/Bending Additional Dressing/Incision Instructions:: Change or remove dressing in 1 days. Leave steri-strips in place for 1 week. May change dressings daily and re-apply dry gauze as needed. May shower on Sunday03/28/20 Allergies/Adverse Reactions: Allergies No Known Allergies Allergy (Verified 03/24/20 10:01) Medications to take at Discharge amlodipine 5 mg tablet 5 mg PO DAILY 07/17/17 Aspirin [Aspirin EC] 81 mg PO DAILY@0800 03/24/20 Ibuprofen 800 mg PO DAILY PRN PRN 03/24/20 Levothyroxine Sodium [Synthroid] 150 mcg PO DAILY 03/24/20 Metoprolol(XL)Succ [Toprol Xl (Beta Mady)] 50 mg PO DAILY 03/24/20 Amoxicillin/Potassium Clav [Augmentin 875-125 Tablet] 1 ea PO BID #10 tab 03/26/20 The following prescriptions were given: Amoxicillin/Potassium Clav [Augmentin 875-125 Tablet] 1 ea PO BID #10 tab Transmission Status: Received by [facility] Primary Care Physician: Shorty Ashley DO [NON-STAFF] - Test Results: Test results from this visit will be discussed in further detail at your follow-up appointment, if applicable. Please Follow Up With: Rk Pérez MD - [phone] When: Call for appt. This will be a ph. call f/u in 7-10 days, please schedule
--- NOTE | 2020-03-25 07:25 | PN_ITS ---
Patient Problems: Active and Suspected Problems (Last Updated 07/17/17 @ 15:40 by Giselle Becerra) Acute appendicitis (Acute) COVID-19 (Acute) Reason for Visit: Follow-up on acute ruptured gangrenous pancreatitis/COVID-19 infection Subjective: Patient was seen and examined. She was extubated this morning. She complains of mild abdominal discomfort. She has been passing gas. Started on sips. She is currently on 2 L of oxygen. She had a temperature spike last night, T-max was 102.9F. Objective: Physical exam: General: Alert, Oriented x3, Cooperative, No apparent distress, obese, on 2 L of oxygen HEENT: Atraumatic, PERRLA, EOMI, Normocephalic Oral: Moist Mucosa, No Gingival or Mucosal Lesions/ Ulcerations Neck: Supple, No JVD, Negative Carotid Bruits, Trachea Midline, Thyroid Normal Size and Texture Lungs: Diminished breath sounds all over Cardiovascular: Regular rate, Regular Rhythm, Normal S1, Normal S2, PMI Normal, Tachycardic Abdomen: Bowel Sounds Present, Soft, Non-Distended, No Hepato-splenomegaly, Obese, Tender -dressing over the periumbilical region from laparoscopy Extremities: No edema Skin: No rashes, No breakdown Lymphatic: No Cervical, Supraclavicular, or Inguinal Adenopathy Neurological: Cranial nerves II-XII grossly intact, Motor Exam 5/5 strength throughout Psych/Mental Status: Normal Affect, Appropriate, Alert and oriented to time, place, person, mood and affect Vitals/I&O's: Vital Signs Temp Pulse Resp BP Pulse Ox 99.9 F H 84 17 115/61 99 03/25/20 06:00 03/25/20 06:00 03/25/20 06:00 03/25/20 06:00 03/25/20 06:00 Oxygen Delivery Method Mechanical Ventilator Weight: 136.2 kg Body Mass Index (BMI) 21.0 Intake and Output for Last 24 Hours 03/23/20 03/24/20 03/25/20 23:59 23:59 23:59 Intake Total 2162.88 / 2168.43 1186.20 / 1186.20 Output Total 25 / 340 505 / 505 Balance 2137.88 / 1828.43 681.20 / 681.20 Laboratory Results 03/24/20 10:35: COVID-19 (SENDY) Detected 03/24/20 10:35: WBC 15.9 H, RBC 5.02, Hgb 15.4 H, Hct 45.3, MCV 90.2, MCH 30.7, MCHC 34.0, RDW Std Deviation 44.9 H, RDW Coeff of Omid 13.5, Plt Count 230, MPV 9.7, Immature Gran % (Auto) 0.700, Neut % (Auto) 90.8 H, Lymph % (Auto) 3.5 L, [place] % (Auto) 4.5, Eos % (Auto) 0.4, Baso % (Auto) 0.1, Absolute Neuts (auto) 14.4 H, Absolute Lymphs (auto) 0.55 L, Nucleated RBC % 0, Differential Comment SCANNED 03/24/20 10:35: Sodium 136, Potassium 3.6, Chloride 102, Carbon Dioxide 25.0, Anion Gap 9, BUN 6 L, Creatinine 0.86, Estim Creat Clear Calc 64.65, Est GFR (MDRD) Af Amer 91, Est GFR (MDRD) Non-Af 75, BUN/Creatinine Ratio 6.9 L, Glucose 162 H, Calcium 8.5, Total Bilirubin 0.60, AST 13 L, ALT 17, Alkaline Phosphatase 80, Total Protein 7.7, Albumin 3.1 L, Globulin 4.6 H, Albumin/Globulin Ratio 0.7 L, Lipase 33 L 03/24/20 10:35: PT 14.1, INR 1.1, D-Dimer Quant (PE/DVT) 1.04 H* 03/24/20 10:35: Troponin I < 0.015 03/24/20 10:35: Hemoglobin A1c 5.6 03/24/20 10:35: B-Natriuretic Peptide 155.6 H 03/24/20 13:20: Urine Color Straw, Urine Clarity Clear, Urine pH 6.5, Ur Specific [place] 1.005, Urine Protein 30 H, Urine Glucose (UA) Normal, Urine Ketones 15 H, Urine Occult Blood 10 H, Urine Nitrite Negative, Urine Bilirubin Negative, Urine Urobilinogen Normal, Ur Leukocyte Esterase Negative, Urine RBC 0-5 SEEN, Urine WBC 0-5 SEEN, Ur Squamous Epith Cells 0-5 SEEN, Urine Bacteria RARE, Urine Mucus 0 SEEN 03/24/20 16:03: Lactic Acid 1.1 03/24/20 16:50: Urine Test Negative 03/24/20 23:34: POC Glucose 162 H 03/25/20 04:00: WBC 15.1 H, RBC 4.44, Hgb 13.5, Hct 41.7, MCV 93.9, MCH 30.4, MCHC 32.4, RDW Std Deviation 49.8 H, RDW Coeff of Omid 14.4, Plt Count 206, MPV 10.1, Immature Gran % (Auto) 0.600, Neut % (Auto) 82.6 H, Lymph % (Auto) 8.7 L, [place] % (Auto) 6.3, Eos % (Auto) 1.6, Baso % (Auto) 0.2, Absolute Neuts (auto) 12.5 H, Absolute Lymphs (auto) 1.32, Nucleated RBC % 0, Differential Comment SCANNED, Atypical Lymphocytes RARE, Toxic Granulation RARE 03/25/20 04:00: Sodium 142, Potassium 3.5, Chloride 112 H, Carbon Dioxide 22.0, Anion Gap 8, BUN 8, Creatinine 1.03 H, Estim Creat Clear Calc 146.31, Est GFR (MDRD) Af Amer 74, Est GFR (MDRD) Non-Af 61, BUN/Creatinine Ratio 7.8 L, Glucose 141 H, Calcium 6.6 L 03/25/20 04:00: Total Creatine Kinase 67, Triglycerides 141 03/25/20 05:39: Specimen Type ART, Sample Site R Brach, pH 7.54 H, Bicarbonate Actual 18.4 L, Total CO2 19, Base Excess -4 L, O2 Saturation 96, O2 % 45, ABG pCO2 21.8 L, ABG pO2 70 L, Andrew Test Positive, Respiration Rate 15, O2 Delivery Device AeroMask, Vent Mode AC, Tidal Volume 450, POC PEEP 8 Current Medications Acetaminophen (Acetaminophen 650 Mg/20 Ml Udc) 650 mg GT Q6H PRN PRN PRN Reason: Pain 1-10 or Fever Last Admin: 03/24/20 23:15 Dose: 650 mg Documented by: Hydrocodone Bitart/Acetaminophen (Hydrocodone Bitartrate/Apap 5/325 Tablet) 1 - 2 tablet PO Q4H PRN PRN PRN Reason: Pain Score 1-10 Enoxaparin Sodium (Enoxaparin 40 Mg/0.4 Ml Syringe) 40 mg SC DAILY@0600 [facility] Sodium Chloride () 250 mls @ 15 mls/hr IV .[id number] PRN PRN Reason: Saline Flush Last Infusion: 03/25/20 03:27 Dose: 15 mls/hr Documented by: Sodium Chloride () 250 mls @ 15 mls/hr IV .[id number] PRN PRN Reason: Additional IVPB Infusion Sodium Chloride () 1,000 mls @ 100 mls/hr IV .Q10H [facility] Last Admin: 03/25/20 06:03 Dose: 100 mls/hr Documented by: Piperacillin Sod/Tazobactam (Sod 3.375 gm/ Sodium Chloride) 50 mls @ 12.5 mls/hr IV Q8 [facility] Last Admin: 03/25/20 05:45 Dose: 12.5 mls/hr Documented by: Fentanyl Citrate 1,000 mcg/ (Sodium Chloride) 100 mls @ 2.5 mls/hr CONT INF .Q40H [facility]; Protocol Last Titration: 03/25/20 06:00 Dose: 0 mcg/hr, 0 mls/hr Documented by: Propofol (Diprivan) 1,000 mg in 100 mls @ 8.148 mls/hr CONT INF .Q12H [facility]; Protocol Last Titration: 03/25/20 06:00 Dose: 0 mcg/kg/min, 0 mls/hr Documented by: Morphine Sulfate (Morphine 2 Mg/Ml Syringe) 2 - 4 mg IV Q1H PRN PRN PRN Reason: Pain Score 1-10 Ondansetron HCl (Ondansetron 4 Mg/2 Ml Vial) 4 mg IV Q8H PRN PRN PRN Reason: Nausea Sodium Chloride (0.9% Saline Lock 10 Ml Syringe) 10 - 40 ml IV UD PRN PRN Reason: SALINE FLUSH STROKE Vital Signs/Narrative: Vital Signs Temp Pulse Resp BP Pulse Ox 03/25/20 06:00 99.9 F H 84 17 115/61 99 03/25/20 05:50 85 13 98 03/25/20 05:00 99.3 F H 83 13 111/61 96 03/25/20 04:34 82 25 H 96 03/25/20 04:00 98.9 F 81 20 H 102/64 99 Medical Necessity - Tobacco Use Smoking Status: Smoker, status unknown Assessment/Plan All Active Problems (Last Updated 07/17/17 @ 15:40 by Giselle Becerra) Acute appendicitis (Acute) COVID-19 (Acute) 1. Acute respiratory failure, status post intubation, status post laparoscopic appendectomy, resolved Patient has been extubated, currently on 2 liters of oxygen Continue with breathing treatments,encourage use of incentive spirometer. Wean off oxygen for SPO2 more than 94% 2. POD #1, s/p laparoscopic appendectomy with drainage, intra-operative findings showed gangrenous perforated appendicitis. Pain is controlled. Will continue on pain control, IV antibiotics, early ambulation 3. Sepsis secondary to acute appendicitis, improved, s/p surgery Continue on IV Zosyn, repeat CBCD in am 4. Acute COVID-19 infection/pneumonia, improved Will continue management as #1 5. Hyperglycemia, type 2 DM ruled out with HgbA1c is 5.6 6. Hypertension, controlled, continue on amlodipine and metoprolol Continue to monitor vitals 7. Hypothyroidism, continue on levothyroxine 8. History of paroxysmal VT, remains in NSR 9. Morbid obesity, BMI 54.9, lifestyle modification recommended. 10. DVT PPx- Lovenox SC Inpatient E&M: 13722 Subs Hosp L2
[2020-03-25] MEDS: Enoxaparin 40 MG/0.4 ML Syringe SC (08:17)
--- NOTE | 2020-03-25 09:02 | CON.PCM_ITS ---
Problem List (1) Hypothyroidism Status: Chronic (2) Acute appendicitis Status: Acute (3) COVID-19 Status: Acute (4) Obesity (BMI 30.0-34.9) Status: Chronic (5) Hyperlipidemia Status: Chronic (6) Paroxysmal ventricular tachycardia Status: Chronic (7) Hypertension Status: Chronic Reason for Consult Date of Consultation: 03/25/20 Reason for Consultation: Respiratory failure History of Present Illness: The patient is a 44 year old F, with past medical history listed below, who presented [facility] on 03/24/2020 secondary to a 3-day history of right upper quadrant pain. Patient states his symptoms began Sunday and have progressed to the point that she cannot take p.o. as of yesterday at noon. Patient had tried a liquid diet, but felt that this made her abdominal pain worse. Patient is also had some diarrhea and a fever as high as 102 ?F. Patient was short of breath, but thought this was secondary to the pain. Patient not reported any respiratory complaint such as cough or rashes. Patient did have a history of hiatal hernia repair in the past. There was some concern on her previous surgery for V. tach and patient was placed on amiodarone and Plavix. Patient reportedly has been seen by a physicist acoustics and has been transitioned to metoprolol. In the ER, patient was noted to have a leukocytosis of 15.9 with adequate platelets. CMP was relatively unremarkable and lipase was 33. Gallbladder ultrasound showed a distended gallbladder with a thickened wall, but a CT of the abdomen showed a mildly distended gallbladder but also a retrocecal appendix with an appendicolith. Patient was reportedly taken to surgery by Dr. Pérez and and tolerated the procedure well. However, upon extubation following surgery, patient decompensated and required reintubation. Patient was transferred to the intensive care unit for continued stabilization. Overnight, patient did well. Patient was requiring 8 of PEEP and 45%, but ABG showed hyperventilation. Patient was placed on a spontaneous breathing trial and was able to be extubated. Patient reports that she did not have any Covid type symptoms other than the fever. Patient states that she is here because of her abdominal pain. Patient does state that she had family members that have been sick for approximately 2 weeks. Patient denies any history of pulmonary pathology such as asthma, COPD, smoking or noxious exposures. Review of systems otherwise negative from a constitutional, HEENT, respiratory, cardiovascular, GI, genitourinary, musculoskeletal, skin, neurologic, psychiatric and hematologic system unless stated above. Past Medical History Past Medical History (Chronic Problems): Chronic Problems (Last Updated 07/17/17 @ 15:40 by Giselle Becerra) Hypothyroidism (Chronic) Obesity (BMI 30.0-34.9) (Chronic) Nonrheumatic mitral (valve) insufficiency (Chronic) Hyperlipidemia (Chronic) Paroxysmal ventricular tachycardia (Chronic) Hypertension (Chronic) Medical History: Medical History (Last Updated 07/17/17 @ 15:40 by Giselle Becerra) Obesity (BMI 30.0-34.9) (Chronic) E66.9 Nonrheumatic mitral (valve) insufficiency (Chronic) I34.0 Hyperlipidemia (Chronic) E78.5 Paroxysmal ventricular tachycardia (Chronic) I47.2 Hypertension (Chronic) I10 Hiatal hernia K44.9 Hypothyroidism E03.9 Allergies No Known Allergies Allergy (Verified 03/24/20 10:01) Home Medications: Ambulatory Orders Medication Instructions Recorded amlodipine 5 mg tablet 5 mg PO DAILY 07/17/17 Aspirin [Aspirin EC] 81 mg PO DAILY@0800 03/24/20 Ibuprofen 800 mg PO DAILY PRN PRN 03/24/20 Levothyroxine Sodium [Synthroid] 180 mcg PO DAILY 03/24/20 Metoprolol(XL)Succ [Toprol Xl 50 mg PO DAILY 03/24/20 (Beta Mady)] Surgical History: - - Hiatal hernia repair. Psychiatric History: No pertinent psych hx FINAL APPLICATION REVIEWER History: No pertinent FINAL APPLICATION REVIEWER history Lives: With Family Smoking Status: Smoker, status unknown Alcohol: None Drugs: None - *Family History Maternal Family History: Family History (Last Reviewed 03/24/20 @ 14:[address] Paloma Pepe MD) Father Heart disease Sister Hypertension Review of Systems Comment: See HPI Patient Problems: Active and Suspected Problems (Last Updated 07/17/17 @ 15:40 by Giselle Becerra) Acute appendicitis (Acute) COVID-19 (Acute) Objective: All imaging reports were personally reviewed. Chest x-ray shows clear lung whitney with mild cardiomegaly. Patient does not have any imaging studies compl eted such as an echocardiogram or PFT available for review. - Physical Exam Vitals/I&O's: Vital Signs Temp Pulse Resp BP Pulse Ox 37.7 C H 87 15 114/54 L 98 03/25/20 08:00 03/25/20 08:00 03/25/20 08:00 03/25/20 08:00 03/25/20 08:00 Oxygen Delivery Method Mechanical Ventilator Weight: 136.2 kg Body Mass Index (BMI) 21.0 Intake and Output for Last 24 Hours 03/23/20 03/24/20 03/25/20 23:59 23:59 23:59 Intake Total 2162.88 / 2168.43 1186.20 / 1186.20 Output Total / 875 / 875 Balance 2137.88 / 1828.43 311.20 / 311.20 General: Alert, Cooperative, No apparent distress, - - Morbidly obese. HEENT: Atraumatic, PERRLA, EOMI, Normocephalic, - - No scleral icterus or injection noted Oral: Moist Mucosa, No Gingival or Mucosal Lesions/ Ulcerations Neck: Supple, No JVD, No Nodes, Trachea Midline Lungs: No rhonchi, No wheeze, No rales, - - Coarse breath sounds. Cardiovascular: Regular rate, Regular Rhythm, Normal S1, Normal S2, No murmurs, No rub noted, No Gallop Abdomen: Bowel Sounds Present, Soft, Non Tender, Non-Distended, Obese Extremities: No clubbing, No cyanosis, Edema - Trace lower extremity Skin: Incision - Clean, dry and intact Musculoskeletal: No Tenderness to Palpation of Joints or Extremities Lymphatic: No Cervical, Supraclavicular, or Inguinal Adenopathy Neurological: Cranial nerves II-XII grossly intact, Neuro grossly intact, Motor Exam 5/5 strength throughout Psych/Mental Status: Normal Affect, Appropriate Laboratory Results 03/24/20 10:35: COVID-19 (SENDY) Detected 03/24/20 10:35: WBC 15.9 H, RBC 5.02, Hgb 15.4 H, Hct 45.3, MCV 90.2, MCH 30.7, MCHC 34.0, RDW Std Deviation 44.9 H, RDW Coeff of Omid 13.5, Plt Count 230, MPV 9.7, Immature Gran % (Auto) 0.700, Neut % (Auto) 90.8 H, Lymph % (Auto) 3.5 L, Mcdonald % (Auto) 4.5, Eos % (Auto) 0.4, Baso % (Auto) 0.1, Absolute Neuts (auto) 14.4 H, Absolute Lymphs (auto) 0.55 L, Nucleated RBC % 0, Differential Comment SCANNED 03/24/20 10:35: Sodium 136, Potassium 3.6, Chloride 102, Carbon Dioxide 25.0, Anion Gap 9, BUN 6 L, Creatinine 0.86, Estim Creat Clear Calc 64.65, Est GFR (MDRD) Af Amer 91, Est GFR (MDRD) Non-Af 75, BUN/Creatinine Ratio 6.9 L, Glucose 162 H, Calcium 8.5, Total Bilirubin 0.60, AST 13 L, ALT 17, Alkaline Phosphatase 80, Total Protein 7.7, Albumin 3.1 L, Globulin 4.6 H, Albumin/Globulin Ratio 0.7 L, Lipase 33 L 03/24/20 10:35: PT 14.1, INR 1.1, D-Dimer Quant (PE/DVT) 1.04 H* 03/24/20 10:35: Troponin I < 0.015 03/24/20 10:35: Hemoglobin A1c 5.6 03/24/20 10:35: B-Natriuretic Peptide 155.6 H 03/24/20 13:20: Urine Color Straw, Urine Clarity Clear, Urine pH 6.5, Ur Specific [place] 1.005, Urine Protein 30 H, Urine Glucose (UA) Normal, Urine Ketones 15 H, Urine Occult Blood 10 H, Urine Nitrite Negative, Urine Bilirubin Negative, Urine Urobilinogen Normal, Ur Leukocyte Esterase Negative, Urine RBC 0-5 SEEN, Urine WBC 0-5 SEEN, Ur Squamous Epith Cells 0-5 SEEN, Urine Bacteria RARE, Urine Mucus 0 SEEN 03/24/20 16:03: Lactic Acid 1.1 03/24/20 16:50: Urine Test Negative 03/24/20 23:34: POC Glucose 162 H 03/25/20 04:00: WBC 15.1 H, RBC 4.44, Hgb 13.5, Hct 41.7, MCV 93.9, MCH 30.4, MCHC 32.4, RDW Std Deviation 49.8 H, RDW Coeff of Omid 14.4, Plt Count 206, MPV 10.1, Immature Gran % (Auto) 0.600, Neut % (Auto) 82.6 H, Lymph % (Auto) 8.7 L, Mcdonald % (Auto) 6.3, Eos % (Auto) 1.6, Baso % (Auto) 0.2, Absolute Neuts (auto) 12.5 H, Absolute Lymphs (auto) 1.32, Nucleated RBC % 0, Differential Comment SCANNED, Atypical Lymphocytes RARE, Toxic Granulation RARE 03/25/20 04:00: Sodium 142, Potassium 3.5, Chloride 112 H, Carbon Dioxide 22.0, Anion Gap 8, BUN 8, Creatinine 1.03 H, Estim Creat Clear Calc 146.31, Est GFR (MDRD) Af Amer 74, Est GFR (MDRD) Non-Af 61, BUN/Creatinine Ratio 7.8 L, Glucose 141 H, Calcium 6.6 L 03/25/20 04:00: Total Creatine Kinase 67, Triglycerides 141 03/25/20 05:39: Specimen Type ART, Sample Site R Brach, pH 7.54 H, Bicarbonate Actual 18.4 L, Total CO2 19, Base Excess -4 L, O2 Saturation 96, O2 % 45, ABG pCO2 21.8 L, ABG pO2 70 L, Andrew Test Positive, Respiration Rate 15, O2 Delivery Device AeroMask, Vent Mode AC, Tidal Volume 450, POC PEEP 8 Current Medications Acetaminophen (Acetaminophen 650 Mg/20 Ml Udc) 650 mg GT Q6H PRN PRN PRN Reason: Pain 1-10 or Fever Last Admin: 03/24/20 23:15 Dose: 650 mg Documented by: Hydrocodone Bitart/Acetaminophen (Hydrocodone Bitartrate/Apap 5/325 Tablet) 1 - 2 tablet PO Q4H PRN PRN PRN Reason: Pain Score 1-10 Enoxaparin Sodium (Enoxaparin 40 Mg/0.4 Ml Syringe) 40 mg SC DAILY@0600 JESUSITA Last Admin: 03/25/20 08:17 Dose: 40 mg Documented by: Sodium Chloride () 250 mls @ 15 mls/hr IV .[id number] PRN PRN Reason: Saline Flush Last Infusion: 03/25/20 03:27 Dose: 15 mls/hr Documented by: Sodium Chloride () 250 mls @ 15 mls/hr IV .[id number] PRN PRN Reason: Additional IVPB Infusion Sodium Chloride () 1,000 mls @ 100 mls/hr IV .Q10H [facility] Last Admin: 03/25/20 07:56 Dose: Not Given Documented by: Piperacillin Sod/Tazobactam (Sod 3.375 gm/ Sodium Chloride) 50 mls @ 12.5 mls/hr IV Q8 [facility] Last Admin: 03/25/20 05:45 Dose: 12.5 mls/hr Documented by: Morphine Sulfate (Morphine 2 Mg/Ml Syringe) 2 - 4 mg IV Q1H PRN PRN PRN Reason: Pain Score 1-10 Ondansetron HCl (Ondansetron 4 Mg/2 Ml Vial) 4 mg IV Q8H PRN PRN PRN Reason: Nausea Sodium Chloride (0.9% Saline Lock 10 Ml Syringe) 10 - 40 ml IV UD PRN PRN Reason: SALINE FLUSH Clinical Impression(s) from Imaging Studies Gallbladder Ultrasound 03/24/20 10:17 IMPRESSION: Distended gallbladder with thickened wall. No evidence of gallstones. Hepatomegaly. Electronically Signed: Ward Crouch, at 12:14 EDT , Service support , Chest X-Ray 03/24/20 10:35 IMPRESSION: Mild cardiomegaly. The lungs are clear. Electronically Signed: Ward Crouch, at 10:47 EDT , Service support , Abdomen/Pelvis CT 03/24/20 12:03 IMPRESSION: Mild hepatomegaly with diffuse fatty infiltration. Mildly distended gallbladder with the minimal thickening of the gallbladder wall. Findings in keeping with acute retrocecal appendicitis with appendicolith. N.B. : The above information has been verbally conveyed by Ward Crouch to Trace De Jesus MD, on 03/24/2020 12:51:24 (ET). Electronically Signed: Ward Crouch, at 12:53 EDT , Service support , ADDENDUM: 10/28/20 1300 IMPRESSION: Mild hepatomegaly with diffuse fatty infiltration. Mildly distended gallbladder with the minimal thickening of the gallbladder wall. Findings in keeping with acute retrocecal appendicitis with appendicolith. N.B. : The above information has been verbally conveyed by Ward Crouch to Trace De Jesus MD, on 03/24/2020 12:51:24 (ET). Electronically Signed: Ward Crouch, at 12:53 EDT , Service support , KUB X-Ray 03/24/20 21:25 IMPRESSION: Enteric tube tip in the stomach. No bowel obstruction. Electronically Signed: Anam Dela Cruz, at 21:59 EDT Tel , Service support , Assessment/Plan Active and Suspected Problems (Last Updated 07/17/17 @ 15:40 by Giselle Becerra) Acute appendicitis (Acute) COVID-19 (Acute) RECOMMENDATIONS: 1. Encourage incentive spirometer and activity as tolerated 2. Defer to infectious disease, but likely no need for dexamethasone 3. Ambulation/anticoagulation as tolerated to avoid hypercoagulable complications 4. Wean oxygen as tolerated 5. Possible transfer from the intensive care unit later today 6. Antibiotics per infectious disease IMPRESSIONS: 1. Severe sepsis secondary to acute retrocecal appendicitis/COVID-19 Patient does have a significant leukocytosis and fever, but chest x-ray is not suggestive of acute COVID-19 pneumonia. Infectious disease has been consulted, but likely not necessary to use dexamethasone. Would be concerned for the hypercoagulable state that has been described in patients with COVID-19 for postoperative complications such as DVTs. Patient would benefit from ambulation as soon as possible. Anticoagulation per surgery. Antibiotics should likely be directed at the appendicitis. 2. Acute hypoxic respiratory failure Unclear if COVID-19 is leading to significant change in respiratory status. Patient was able to be liberated from the ventilator this morning. We will continue to monitor clinically. Patient should be encouraged to use incentive spirometer. No history of obstructive lung disease, so okay to hold on bronchodilators from my perspective. Patient should remain in isolation for now. Do not believe that a CTA is necessary as this may lead to more complications with renal function. 3. Hyperglycemia/hypertension/hypothyroidism/reported history of VT/morbid obesity Complicates care, management, recovery and prognosis. Watch blood sugars closely. Patient can be continued on telemetry. Some concern patient may have an element of obstructive sleep apnea that would be exacerbated by narcotics. This could have led to the reported VT in the past. TIME: 33 minutes critical care time spent addressing patient's acute hypoxic respiratory failure, severe sepsis, review of all data and collaboration with care team (7 AM to 8 AM) [phone] [id number] Critical care first hour
[2020-03-25] MEDS: HYDROcodone Bitartrate/Apap 5/325 Tablet PO (10:52)
--- NOTE | 2020-03-25 11:10 | CASEMGMT ---
RN CM Assessment Note Introduced role of CM to patient. Demographics, PCP verified. Additional home phone number added. The patient states she lives in her parents basement and is generally independent. She does not use ambulatory DME. Her parents have also tested positive, but she states other family can assist if they need anything brought to the house. She uses a car driver, and states family will arrange for a car driver on discharge. Presentation: abd pain Diagnosis: appendectomy PCP: Dr. Pushpa Smith Specialists: Dr. Rk Pérez Insurance: [employer] Preferred Pharmacy: [facility] preferred Prescription Benefit: no LNOK: parents DME: no equipment Patient DC Goals: Home on discharge DC Plan: anticipate home on discharge. The patient is on 2L NC, however not anticipated to need on discharge. CM available for discharge planning coordination. Contact CM for any concerns/needs that may arise. Pedro ELAMN RN ACM
--- NOTE | 2020-03-25 11:15 | PN.ID_ITS ---
Patient Problems: Active and Suspected Problems (Last Updated 07/17/17 @ 15:40 by Giselle Becerra) Acute appendicitis (Acute) COVID-19 (Acute) Subjective: Feeling better, off vent, mild abd soreness. - Physical Exam Vitals/I&O's: Vital Signs Temp Pulse Resp BP Pulse Ox 99.9 F H 89 23 H 103/52 L 93 03/25/20 10:00 03/25/20 11:00 03/25/20 11:00 03/25/20 11:00 03/25/20 11:00 Oxygen Flow Rate (L/min) 2 Oxygen Delivery Method Nasal Cannula Weight: 136.2 kg Body Mass Index (BMI) 21.0 Intake and Output for Last 24 Hours 03/23/20 03/24/20 03/25/20 23:59 23:59 23:59 Intake Total 2162.88 / 2168.43 1336.20 / 1336.20 Output Total 25 / 340 1000 / 1000 Balance 2137.88 / 1828.43 336.20 / 336.20 General: Alert, Cooperative, No apparent distress Lungs: Clear to auscultation Cardiovascular: Regular rate, Regular Rhythm Abdomen: Soft, Non Tender, Non-Distended Skin: No rashes Laboratory Results 03/24/20 10:35: COVID-19 (SENDY) Detected 03/24/20 10:35: Differential Comment SCANNED 03/24/20 10:35: PT 14.1, INR 1.1, D-Dimer Quant (PE/DVT) 1.04 H* 03/24/20 10:35: Troponin I < 0.015 03/24/20 10:35: Hemoglobin A1c 5.6 03/24/20 10:35: B-Natriuretic Peptide 155.6 H 03/24/20 13:20: Urine Color Straw, Urine Clarity Clear, Urine pH 6.5, Ur Specific [place] 1.005, Urine Protein 30 H, Urine Glucose (UA) Normal, Urine Ketones 15 H, Urine Occult Blood 10 H, Urine Nitrite Negative, Urine Bilirubin Negative, Urine Urobilinogen Normal, Ur Leukocyte Esterase Negative, Urine RBC 0-5 SEEN, Urine WBC 0-5 SEEN, Ur Squamous Epith Cells 0-5 SEEN, Urine Bacteria RARE, Urine Mucus 0 SEEN 03/24/20 16:03: Lactic Acid 1.1 03/24/20 16:50: Urine Test Negative 03/24/20 23:34: POC Glucose 162 H 03/25/20 04:00: WBC 15.1 H, RBC 4.44, Hgb 13.5, Hct 41.7, MCV 93.9, MCH 30.4, MCHC 32.4, RDW Std Deviation 49.8 H, RDW Coeff of Omdi 14.4, Plt Count 206, MPV 10.1, Immature Gran % (Auto) 0.600, Neut % (Auto) 82.6 H, Lymph % (Auto) 8.7 L, [place] % (Auto) 6.3, Eos % (Auto) 1.6, Baso % (Auto) 0.2, Absolute Neuts (auto) 12.5 H, Absolute Lymphs (auto) 1.32, Nucleated RBC % 0, Differential Comment SCANNED, Atypical Lymphocytes RARE, Toxic Granulation RARE 03/25/20 04:00: Sodium 142, Potassium 3.5, Chloride 112 H, Carbon Dioxide 22.0, Anion Gap 8, BUN 8, Creatinine 1.03 H, Estim Creat Clear Calc 146.31, Est GFR (MDRD) Af Amer 74, Est GFR (MDRD) Non-Af 61, BUN/Creatinine Ratio 7.8 L, Glucose 141 H, Calcium 6.6 L 03/25/20 04:00: Total Creatine Kinase 67, Triglycerides 141 03/25/20 05:39: Specimen Type ART, Sample Site R Brach, pH 7.54 H, Bicarbonate Actual 18.4 L, Total CO2 19, Base Excess -4 L, O2 Saturation 96, O2 % 45, ABG pCO2 21.8 L, ABG pO2 70 L, Andrew Test Positive, Respiration Rate 15, O2 Delivery Device AeroMask, Vent Mode AC, Tidal Volume 450, POC PEEP 8 Current Medications Acetaminophen (Acetaminophen 650 Mg/20 Ml Udc) 650 mg PO Q6H PRN PRN PRN Reason: Pain 1-10 or Fever Hydrocodone Bitart/Acetaminophen (Hydrocodone Bitartrate/Apap 5/325 Tablet) 1 - 2 tablet PO Q4H PRN PRN PRN Reason: Pain Score 1-10 Last Admin: 03/25/20 10:52 Dose: 2 tablet Documented by: Enoxaparin Sodium (Enoxaparin 40 Mg/0.4 Ml Syringe) 40 mg SC DAILY@0600 JESUSITA Last Admin: 03/25/20 08:17 Dose: 40 mg Documented by: Sodium Chloride () 250 mls @ 15 mls/hr IV .[id number] PRN PRN Reason: Saline Flush Last Infusion: 03/25/20 03:27 Dose: 15 mls/hr Documented by: Sodium Chloride () 250 mls @ 15 mls/hr IV .[id number] PRN PRN Reason: Additional IVPB Infusion Sodium Chloride () 1,000 mls @ 100 mls/hr IV .Q10H [facility] Last Admin: 03/25/20 07:56 Dose: Not Given Documented by: Piperacillin Sod/Tazobactam (Sod 3.375 gm/ Sodium Chloride) 50 mls @ 12.5 mls/hr IV Q8 [facility] Last Infusion: 03/25/20 10:51 Dose: Infused Documented by: Morphine Sulfate (Morphine 2 Mg/Ml Syringe) 2 - 4 mg IV Q1H PRN PRN PRN Reason: Pain Score 1-10 Ondansetron HCl (Ondansetron 4 Mg/2 Ml Vial) 4 mg IV Q8H PRN PRN PRN Reason: Nausea Sodium Chloride (0.9% Saline Lock 10 Ml Syringe) 10 - 40 ml IV UD PRN PRN Reason: SALINE FLUSH Medical Necessity - Tobacco Use Smoking Status: Smoker, status unknown Route of nutrition/ use of supplements: [] Nutritional Intake: [] IV Site: [] Peraza Catheter: [] - Assessment/Plan Antibiotics: [] Assessment/Plan: [] Active and Suspected Problems (Last Updated 07/17/17 @ 15:40 by Giselle Becerra) Acute appendicitis (Acute) COVID-19 (Acute) acute ruptured appendicitis - cont zosyn, now s/p OR 03/[address] Elisa jangid - sx started on 03/12/10, appears to have completely recovered. Covid pcr (+) here, but likely no longer infectious. No hypoxia/dyspnea/cough on presentation here. Would keep in isolation at least for now. Consider stopping tomorrow as it will have been 2 weeks since sx started. Will follow
[2020-03-26] VITALS (8 sets, daily range): BP systolic 109–128; BP diastolic 54–76; PULSE 90–98; RESP 16–20; TEMP 36.8–37.3; O2SAT 87–96
[2020-03-26] MEDS: HYDROcodone Bitartrate/Apap 5/325 Tablet PO (03:37)
[2020-03-26] MEDS: Levothyroxine 150 MCG Tablet PO (05:41)
[2020-03-26] MEDS: Enoxaparin 40 MG/0.4 ML Syringe SC (05:41)
[2020-03-26 06:21] LABS: Absolute Lymphocyte Count 1.59 X10^3/uL (0.83-4.51); Absolute Neutrophil Count 9.2 X10^3/uL (2.0-7.7); Basophil# 0.02 X10^3/uL; Basophil% 0.2 % (0-1); Eosinophil# 0.03 X10^3/uL; Eosinophils% 0.3 % (0-5); Hemoglobin 12.1 g/dL (12.0-15.0); Lymphocyte # 1.59 X10^3/ul (4.0); Lymphocyte % 13.8 % (19-41); Mean Corp Hgb Conc 32.7 g/dL (32-36); Mean Corpuscular Hgb 30.5 pg (27.0-32.0); Mean Corpuscular Volume 93.2 fL (81-99); Mean Platelet Vol. 9.6 fl (6.2-12.0); Monocyte# 0.61 X10^3/uL; Monocyte% 5.3 % (0-10); NRBC Flagged by Analyzer 0 % (0-5); Neutrophil # 9.19 X10^3/uL (2.7-7.7); Neutrophil % 79.9 % (47-70); Platelet Count 203 K/mm3 (150-450); RBC Distribution Width CV 14.4 % (11.6-14.6); RBC Distribution Width SD 49.6 fl (35.1-43.9); Red Blood Count 3.97 M/mm3 (4.2-5.4); White Blood Count 11.5 K/mm3 (4.4-11.0)
--- NOTE | 2020-03-26 06:24 | PCM.PN.SRG ---
Patient Problems: Active and Suspected Problems (Last Updated 07/17/17 @ 15:40 by Giselle Becerra) Acute appendicitis (Acute) COVID-19 (Acute) Subjective: Patient has mild discomfort. No flatus or stool. She has been moved to PCU. - Physical Exam Vitals/I&O's: Vital Signs Temp Pulse Resp BP Pulse Ox 98.3 F 90 17 109/56 L 96 03/26/20 05:39 03/26/20 05:39 03/26/20 05:39 03/26/20 05:39 03/26/20 05:39 Oxygen Flow Rate (L/min) 2 Oxygen Delivery Method Nasal Cannula Weight: 306 lb 7.08 oz Body Mass Index (BMI) 21.0 Intake and Output for Last 24 Hours 03/24/20 03/25/20 03/26/20 23:59 23:59 23:59 Intake Total 2162.88 / 2168.43 4248.12 / 4248.12 200 / 200 Output Total 25 / 340 1320 / 1320 375 / 375 Balance 2137.88 / 1828.43 2928.12 / 2928.12 -175 / -175 Abdomen: Soft, Hypoactive Bowel Sounds, - - Wounds clean, umbilical wick advanced with minimal drainage Laboratory Results 03/26/20 06:14: WBC 11.5 H, RBC 3.97 L, Hgb 12.1, Hct 37.0, MCV 93.2, MCH 30.5, MCHC 32.7, RDW Std Deviation 49.6 H, RDW Coeff of Omid 14.4, Plt Count 203, MPV 9.6, Immature Gran % (Auto) 0.500, Neut % (Auto) 79.9 H, Lymph % (Auto) 13.8 L, [place] % (Auto) 5.3, Eos % (Auto) 0.3, Baso % (Auto) 0.2, Absolute Neuts (auto) 9.2 H, Absolute Lymphs (auto) 1.59, Nucleated RBC % 0 03/26/20 06:14: Sodium Pending, Potassium Pending, Chloride Pending, Carbon Dioxide Pending, Anion Gap Pending, BUN Pending, Creatinine Pending, Est GFR (MDRD) Af Amer Pending, Est GFR (MDRD) Non-Af Pending, BUN/Creatinine Ratio Pending, Glucose Pending, Calcium Pending, Total Bilirubin Pending, AST Pending, ALT Pending, Alkaline Phosphatase Pending, Total Protein Pending, Albumin Pending Current Medications Acetaminophen (Acetaminophen 650 Mg/20 Ml Udc) 650 mg PO Q6H PRN PRN PRN Reason: Pain 1-10 or Fever Hydrocodone Bitart/Acetaminophen (Hydrocodone Bitartrate/Apap 5/325 Tablet) 1 - 2 tablet PO Q4H PRN PRN PRN Reason: Pain Score 1-10 Last Admin: 03/26/20 03:37 Dose: 2 tablet Documented by: Albuterol Sulfate (Albuterol Ih 8.5 Gm (Proair) Inhaler (200 Puffs)) 2 puff INHALATION Q4H PRN PRN PRN Reason: SHORTNESS OF BREATH Amlodipine Besylate (Amlodipine 5 Mg Tablet) 5 mg PO DAILY [facility] Aspirin (Aspirin E.C. 81 Mg Tablet) 81 mg PO DAILY [facility] Enoxaparin Sodium (Enoxaparin 40 Mg/0.4 Ml Syringe) 40 mg SC DAILY@0600 [facility] Last Admin: 03/26/20 05:41 Dose: 40 mg Documented by: Sodium Chloride () 250 mls @ 15 mls/hr IV .[id number] PRN PRN Reason: Saline Flush Last Infusion: 03/25/20 20:09 Dose: Infused Documented by: Sodium Chloride () 250 mls @ 15 mls/hr IV .[id number] PRN PRN Reason: Additional IVPB Infusion Sodium Chloride () 1,000 mls @ 100 mls/hr IV .Q10H [facility] Last Admin: 03/25/20 23:55 Dose: 100 mls/hr Documented by: Piperacillin Sod/Tazobactam (Sod 3.375 gm/ Sodium Chloride) 50 mls @ 12.5 mls/hr IV Q8 [facility] Last Admin: 03/26/20 05:41 Dose: 12.5 mls/hr Documented by: Levothyroxine Sodium (Levothyroxine 150 Mcg Tablet) 150 mcg PO DAILY@0600 [facility] Last Admin: 03/26/20 05:41 Dose: 150 mcg Documented by: Metoprolol Succinate (Metoprolol(Xl)Succ 50 Mg Tablet) 50 mg PO DAILY [facility] Morphine Sulfate (Morphine 2 Mg/Ml Syringe) 2 - 4 mg IV Q1H PRN PRN PRN Reason: Pain Score 1-10 Ondansetron HCl (Ondansetron 4 Mg/2 Ml Vial) 4 mg IV Q8H PRN PRN PRN Reason: Nausea Sodium Chloride (0.9% Saline Lock 10 Ml Syringe) 10 - 40 ml IV UD PRN PRN Reason: SALINE FLUSH Medical Necessity - Tobacco Use Smoking Status: Smoker, status unknown Assessment/Plan All Active Problems (Last Updated 07/17/17 @ 15:40 by Giselle Becerra) Acute appendicitis (Acute) COVID-19 (Acute) CARLA drain removed. Midline abdominal wound wick advanced. We will advance diet. Laboratory pending. Patient has been encouraged to use I-S and mobilize. Discharge pending normalization of white blood cell count and flatus and resolution of pulmonary status is she still on 2 L of oxygen Rk Pérez M.D., F.A.C.S.
[2020-03-26 06:48] LABS: ALB/GLOB Ratio 0.6 RATIO (0.9-2.4); AST(SGOT) 14 U/L (15-37); Alanine Aminotransfer ALT/SGPT 12 U/L (13-56); Alkaline Phosphatase 71 U/L (45-117); Anion Gap 8 (5-15); BUN 8 mg/dL (7-18); Chloride 113 mmol/L (98-107); Creatinine, Serum 0.67 mg/dL (0.55-1.02); EST Glomerular Filtration Rate 101 mL/min (>60); Est Glom Filt Rate - Afr Amer 122 mL/min (>60); Estimated Creatinine Clearance 82.98 ml/min; Globulin 3.4 g/dL (2.2-4.2); Glucose 106 mg/dL (74-106); Potassium 3.6 mmol/L (3.5-5.1); Protein, Total 5.4 g/dL (6.4-8.2); Sodium Level 142 mmol/L (136-145)
--- NOTE | 2020-03-26 07:43 | PCM.PN.HOSP ---
Patient Problems: Active and Suspected Problems (Last Updated 07/17/17 @ 15:40 by Giselle Becerra) Acute appendicitis (Acute) COVID-19 (Acute) Reason for Visit: Follow-up on acute CVA/ hypoxia/Acute COVID-19 infection Subjective: Patient seen and examined. She feels improved. Remains on oxygen. Denies fever or chills or diarrhea Objective: Physical exam: General: Alert, Oriented x3, Cooperative, No apparent distress, - - on 2L oxygen, morbidly obese HEENT: Atraumatic, PERRLA, EOMI, Normocephalic Neck: Supple Lungs: Clear to auscultation, Normal air movement Cardiovascular: Regular rate, Regular Rhythm, Normal S1, Normal S2, No murmurs Abdomen: Bowel Sounds Present, Soft, Non Tender, Non-Distended, No Hepato-splenomegaly Extremities: No edema Skin: No rashes Musculoskeletal: No Tenderness to Palpation of Joints or Extremities Lymphatic: No Cervical, Supraclavicular, or Inguinal Adenopathy - except for left peripheral field neglect Neurological: Neuro grossly intact Psych/Mental Status: Normal Affect, Appropriate M Vitals/I&O's: Vital Signs Temp Pulse Resp BP Pulse Ox 98.3 F 90 17 109/56 L 96 03/26/20 05:39 03/26/20 05:39 03/26/20 05:39 03/26/20 05:39 03/26/20 05:39 Oxygen Flow Rate (L/min) 2 Oxygen Delivery Method Nasal Cannula Weight: 139 kg Body Mass Index (BMI) 21.0 Intake and Output for Last 24 Hours 03/24/20 03/25/20 03/26/20 23:59 23:59 23:59 Intake Total 2162.88 / 2168.43 4248.12 / 4248.12 908.33 / 908.33 Output Total 25 / 340 1320 / 1320 375 / 375 Balance 2137.88 / 1828.43 2928.12 / 2928.12 533.33 / 533.33 Laboratory Results 03/26/20 06:14: WBC 11.5 H, RBC 3.97 L, Hgb 12.1, Hct 37.0, MCV 93.2, MCH 30.5, MCHC 32.7, RDW Std Deviation 49.6 H, RDW Coeff of Omid 14.4, Plt Count 203, MPV 9.6, Immature Gran % (Auto) 0.500, Neut % (Auto) 79.9 H, Lymph % (Auto) 13.8 L, [place] % (Auto) 5.3, Eos % (Auto) 0.3, Baso % (Auto) 0.2, Absolute Neuts (auto) 9.2 H, Absolute Lymphs (auto) 1.59, Nucleated RBC % 0 03/26/20 06:14: Sodium 142, Potassium 3.6, Chloride 113 H, Carbon Dioxide 21.0, Anion Gap 8, BUN 8, Creatinine 0.67, Estim Creat Clear Calc 82.98, Est GFR (MDRD) Af Amer 122, Est GFR (MDRD) Non-Af 101, BUN/Creatinine Ratio 12.0, Glucose 106, Calcium 7.0 L, Total Bilirubin 0.40, AST 14 L, ALT 12 L, Alkaline Phosphatase 71, Total Protein 5.4 L, Albumin 2.0 L, Globulin 3.4, Albumin/Globulin Ratio 0.6 L Current Medications Acetaminophen (Acetaminophen 650 Mg/20 Ml Udc) 650 mg PO Q6H PRN PRN PRN Reason: Pain 1-10 or Fever Hydrocodone Bitart/Acetaminophen (Hydrocodone Bitartrate/Apap 5/325 Tablet) 1 - 2 tablet PO Q4H PRN PRN PRN Reason: Pain Score 1-10 Last Admin: 03/26/20 03:37 Dose: 2 tablet Documented by: Albuterol Sulfate (Albuterol Ih 8.5 Gm (Proair) Inhaler (200 Puffs)) 2 puff INHALATION Q4H PRN PRN PRN Reason: SHORTNESS OF BREATH Amlodipine Besylate (Amlodipine 5 Mg Tablet) 5 mg PO DAILY [facility] Aspirin (Aspirin E.C. 81 Mg Tablet) 81 mg PO DAILY [facility] Enoxaparin Sodium (Enoxaparin 40 Mg/0.4 Ml Syringe) 40 mg SC DAILY@0600 [facility] Last Admin: 03/26/20 05:41 Dose: 40 mg Documented by: Sodium Chloride () 250 mls @ 15 mls/hr IV .[id number] PRN PRN Reason: Saline Flush Last Infusion: 03/25/20 20:09 Dose: Infused Documented by: Sodium Chloride () 250 mls @ 15 mls/hr IV .[id number] PRN PRN Reason: Additional IVPB Infusion Sodium Chloride () 1,000 mls @ 30 mls/hr IV .[id number] [facility] Last Infusion: 03/26/20 07:00 Dose: 30 mls/hr Documented by: Piperacillin Sod/Tazobactam (Sod 3.375 gm/ Sodium Chloride) 50 mls @ 12.5 mls/hr IV Q8 [facility] Last Admin: 03/26/20 05:41 Dose: 12.5 mls/hr Documented by: Levothyroxine Sodium (Levothyroxine 150 Mcg Tablet) 150 mcg PO DAILY@0600 [facility] Last Admin: 03/26/20 05:41 Dose: 150 mcg Documented by: Metoprolol Succinate (Metoprolol(Xl)Succ 50 Mg Tablet) 50 mg PO DAILY [facility] Morphine Sulfate (Morphine 2 Mg/Ml Syringe) 2 - 4 mg IV Q1H PRN PRN PRN Reason: Pain Score 1-10 Ondansetron HCl (Ondansetron 4 Mg/2 Ml Vial) 4 mg IV Q8H PRN PRN PRN Reason: Nausea Sodium Chloride (0.9% Saline Lock 10 Ml Syringe) 10 - 40 ml IV UD PRN PRN Reason: SALINE FLUSH STROKE Vital Signs/Narrative: Vital Signs Temp Pulse Resp BP Pulse Ox 03/26/20 05:39 98.3 F 90 17 109/56 L 96 Medical Necessity - Tobacco Use Smoking Status: Smoker, status unknown Assessment/Plan All Active Problems (Last Updated 18 @ 15:40 by Giselle Becerra) Acute appendicitis (Acute) COVID-19 (Acute) 1. Acute respiratory failure, status post intubation, status post laparoscopic appendectomy, resolved Patient has been extubated, currently on 2 liters of oxygen Continue with breathing treatments,encourage use of incentive spirometer. Wean off oxygen for SPO2 more than 94% 2. POD #2, s/p laparoscopic appendectomy with drainage, intra-operative findings showed gangrenous perforated appendicitis. Pain is controlled. Will continue on pain control, IV antibiotics, early ambulation 3. Sepsis secondary to acute appendicitis, improved, s/p surgery Continue on IV Zosyn, plan for dc on POD #4, repeat CBCD in am 4. Acute COVID-19 infection/pneumonia, improved Will continue management as #1 5. Hyperglycemia, type 2 DM ruled out with HgbA1c is 5.6 6. Hypertension, controlled, continue on amlodipine and metoprolol Continue to monitor vitals 7. Hypothyroidism, continue on levothyroxine 8. History of paroxysmal SVT, remains in NSR 9. Morbid obesity, BMI 54.9, lifestyle modification recommended. 10. DVT PPx- Lovenox SC Inpatient E&M: [id number] [facility] Hosp L2
[2020-03-26] MEDS: Metoprolol(XL)Succ 50 MG Tablet PO (10:33)
[2020-03-26] MEDS: amLODIPine 5 MG Tablet PO (10:33)
[2020-03-26] MEDS: Aspirin E.C. 81 MG Tablet PO (10:34)
--- NOTE | 2020-03-26 12:40 | CASEMGMT ---
Pt is still requiring 2liters nc at this time. Call to room to speak with pt regarding same. Pt states that her family right next door has a generator that she can use and pt states she would like [employer] for [employer] at this time. Green sheet left on chart if pt qualifies for home oxygen. Pt voices no further questions/concerns/needs at this time. Dorothea ALEXANDRE CM
[2020-03-26] MEDS: Furosemide 20 MG/2 ML VIAL IV ×2 (13:55→21:57)
--- NOTE | 2020-03-26 14:55 | PCM.PN.INT ---
Subjective: Patient transferred out of the intensive care unit yesterday. Patient states that she feels well, but is still requiring supplemental oxygen with exertion. Patient denies any cough. Pain is well controlled. General: Alert, Oriented x3, Cooperative, No apparent distress, Well developed, Well nourished, - - Morbidly obese. Speaking in full sentences. HEENT: Atraumatic, PERRLA, EOMI, Normocephalic, - - No scleral icterus or injection noted. Glasses in place. Oral: Moist Mucosa, No Gingival or Mucosal Lesions/ Ulcerations, - - Crowded posterior pharynx Neck: Supple, No JVD, No Nodes, Trachea Midline Lungs: No rhonchi, No wheeze, No rales, Diminished, - - Symmetric expansion. No dullness to percussion. Cardiovascular: Regular rate, Regular Rhythm, Normal S1, Normal S2, No murmurs, No rub noted, No Gallop Abdomen: Bowel Sounds Present, Soft, Non Tender, Non-Distended, Obese Extremities: No clubbing, No cyanosis, Edema - Trace to 1+ lower extremity Skin: - - No changes compared to previous Musculoskeletal: No Tenderness to Palpation of Joints or Extremities Lymphatic: No Cervical, Supraclavicular, or Inguinal Adenopathy Neurological: Cranial nerves II-XII grossly intact, Neuro grossly intact, Motor Exam 5/5 strength throughout Psych/Mental Status: Alert and oriented to time, place, person, mood and affect Vital Signs Temp Pulse Resp BP Pulse Ox 36.9 C 98 20 H 122/58 H 94 03/26/20 10:18 03/26/20 10:33 03/26/20 10:03/26/20 10:18 03/26/20 11:15 Oxygen Flow Rate (L/min) 2 Oxygen Delivery Method Nasal Cannula Weight: 139 kg Body Mass Index (BMI) 21.0 Intake and Output for Last 24 Hours 03/24/20 03/25/20 03/26/20 23:59 23:59 23:59 Intake Total 2162.88 / 2168.43 4248.12 / 4248.12 1558.83 / 1558.83 Output Total 25 / 340 1320 / 1320 750 / 750 Balance 2137.88 / 1828.43 2928.12 / 2928.12 808.83 / 808.83 Labs (Last 48 Hours) 03/24/20 03/24/20 03/24/20 10:35 10:35 16:03 WBC RBC Hgb Hct MCV MCH MCHC RDW Std Deviation RDW Coeff of Omid Plt Count MPV Immature Gran % (Auto) Neut % (Auto) Lymph % (Auto) [place] % (Auto) Eos % (Auto) Baso % (Auto) Absolute Neuts (auto) Absolute Lymphs (auto) Nucleated RBC % Differential Comment Atypical Lymphocytes Toxic Granulation Specimen Type Sample Site pH Bicarbonate Actual Total CO2 Base Excess O2 Saturation O2 % ABG pCO2 ABG pO2 Andrew Test Respiration Rate O2 Delivery Device Vent Mode Tidal Volume POC PEEP Sodium Potassium Chloride Carbon Dioxide Anion Gap BUN Creatinine Estim Creat Clear Calc Est GFR (MDRD) Af Amer Est GFR (MDRD) Non-Af BUN/Creatinine Ratio Glucose Hemoglobin A1c 5.6 Lactic Acid 1.1 Calcium Total Bilirubin AST ALT Alkaline Phosphatase Total Creatine Kinase B-Natriuretic Peptide 155.6 H Total Protein Albumin Globulin Albumin/Globulin Ratio Triglycerides Urine Test POC Glucose 03/24/20 03/24/20 03/25/20 16:50 23:34 04:00 WBC 15.1 H RBC 4.44 Hgb 13.5 Hct 41.7 MCV 93.9 MCH 30.4 MCHC 32.4 RDW Std Deviation 49.8 H RDW Coeff of Omid 14.4 Plt Count 206 MPV 10.1 Immature Gran % (Auto) 0.600 Neut % (Auto) 82.6 H Lymph % (Auto) 8.7 L [place] % (Auto) 6.3 Eos % (Auto) 1.6 Baso % (Auto) 0.2 Absolute Neuts (auto) 12.5 H Absolute Lymphs (auto) 1.32 Nucleated RBC % 0 Differential Comment SCANNED Atypical Lymphocytes RARE Toxic Granulation RARE Specimen Type Sample Site pH Bicarbonate Actual Total CO2 Base Excess O2 Saturation O2 % ABG pCO2 ABG pO2 Andrew Test Respiration Rate O2 Delivery Device Vent Mode Tidal Volume POC PEEP Sodium Potassium Chloride Carbon Dioxide Anion Gap BUN Creatinine Estim Creat Clear Calc Est GFR (MDRD) Af Amer Est GFR (MDRD) Non-Af BUN/Creatinine Ratio Glucose Hemoglobin A1c Lactic Acid Calcium Total Bilirubin AST ALT Alkaline Phosphatase Total Creatine Kinase B-Natriuretic Peptide Total Protein Albumin Globulin Albumin/Globulin Ratio Triglycerides Urine Test Negative POC Glucose 162 H 03/25/20 03/25/20 03/25/20 04:00 04:00 05:39 WBC RBC Hgb Hct MCV MCH MCHC RDW Std Deviation RDW Coeff of Omid Plt Count MPV Immature Gran % (Auto) Neut % (Auto) Lymph % (Auto) [place] % (Auto) Eos % (Auto) Baso % (Auto) Absolute Neuts (auto) Absolute Lymphs (auto) Nucleated RBC % Differential Comment Atypical Lymphocytes Toxic Granulation Specimen Type ART Sample Site R Brach pH 7.54 H Bicarbonate Actual 18.4 L Total CO2 19 Base Excess -4 L O2 Saturation 96 O2 % 45 ABG pCO2 21.8 L ABG pO2 70 L Andrew Test Positive Respiration Rate 15 O2 Delivery Device AeroMask Vent Mode AC Tidal Volume 450 POC PEEP 8 Sodium 142 Potassium 3.5 Chloride 112 H Carbon Dioxide 22.0 Anion Gap 8 BUN 8 Creatinine 1.03 H Estim Creat Clear Calc 146.31 Est GFR (MDRD) Af Amer 74 Est GFR (MDRD) Non-Af 61 BUN/Creatinine Ratio 7.8 L Glucose 141 H Hemoglobin A1c Lactic Acid Calcium 6.6 L Total Bilirubin AST ALT Alkaline Phosphatase Total Creatine Kinase 67 B-Natriuretic Peptide Total Protein Albumin Globulin Albumin/Globulin Ratio Triglycerides 141 Urine Test POC Glucose 03/26/20 03/26/20 06:14 06:14 WBC 11.5 H RBC 3.97 L Hgb 12.1 Hct 37.0 MCV 93.2 MCH 30.5 MCHC 32.7 RDW Std Deviation 49.6 H RDW Coeff of Omid 14.4 Plt Count 203 MPV 9.6 Immature Gran % (Auto) 0.500 Neut % (Auto) 79.9 H Lymph % (Auto) 13.8 L [place] % (Auto) 5.3 Eos % (Auto) 0.3 Baso % (Auto) 0.2 Absolute Neuts (auto) 9.2 H Absolute Lymphs (auto) 1.59 Nucleated RBC % 0 Differential Comment Atypical Lymphocytes Toxic Granulation Specimen Type Sample Site pH Bicarbonate Actual Total CO2 Base Excess O2 Saturation O2 % ABG pCO2 ABG pO2 Andrew Test Respiration Rate O2 Delivery Device Vent Mode Tidal Volume POC PEEP Sodium 142 Potassium 3.6 Chloride 113 H Carbon Dioxide 21.0 Anion Gap 8 BUN 8 Creatinine 0.67 Estim Creat Clear Calc 82.98 Est GFR (MDRD) Af Amer 122 Est GFR (MDRD) Non-Af 101 BUN/Creatinine Ratio 12.0 Glucose 106 Hemoglobin A1c Lactic Acid Calcium 7.0 L Total Bilirubin 0.40 AST 14 L ALT 12 L Alkaline Phosphatase 71 Total Creatine Kinase B-Natriuretic Peptide Total Protein 5.4 L Albumin 2.0 L Globulin 3.4 Albumin/Globulin Ratio 0.6 L Triglycerides Urine Test POC Glucose Medical Necessity - Tobacco Use Smoking Status: Smoker, status unknown Assessment/Plan All Active Problems (Last Updated 07/17/17 @ 15:40 by Giselle Becerra) Acute appendicitis (Acute) COVID-19 (Acute) RECOMMENDATIONS: 1. Encourage incentive spirometer and activity as tolerated 2. Defer to infectious disease, but likely no need for dexamethasone 3. Ambulation/anticoagulation as tolerated to avoid hypercoagulable complications 4. Wean oxygen as tolerated 5. Challenge with diuretics 6. No need for pulmonary follow-up if patient does not require supplemental oxygen on discharge 7. Hemodynamically stable on minimal nasal cannula oxygen. Will sign off from a critical care perspective IMPRESSIONS: 1. Severe sepsis secondary to acute retrocecal appendicitis/COVID-19 Patient does have a significant leukocytosis and fever, but chest x-ray is not suggestive of acute COVID-19 pneumonia. Infectious disease has been consulted, but likely not necessary to use dexamethasone. Would be concerned for the hypercoagulable state that has been described in patients with COVID-19 for postoperative complications such as DVTs. Patient would benefit from ambulation as soon as possible. Anticoagulation per surgery. Antibiotics should likely be directed at the appendicitis, not pneumonia. 2. Acute hypoxic respiratory failure Unclear if COVID-19 is leading to significant change in respiratory status. Patient is able to be liberated from the ventilator, but is still requiring minimal nasal cannula oxygen. This may be a combination of multiple possible etiologies including atelectasis, mild fluid overload secondary to resuscitation with severe sepsis and COVID-19. We will give patient diuretics to see if this improves oxygenation. Patient should have a walking oximetry prior to discharge. If able to tolerate room air at discharge, no pulmonary follow-up would necessarily be required. 3. Hyperglycemia/hypertension/hypothyroidism/reported history of VT/morbid obesity Complicates care, management, recovery and prognosis. Watch blood sugars closely. Patient can be continued on telemetry. Some concern patient may have an element of obstructive sleep apnea that would be exacerbated by narcotics. This could have led to the reported VT in the past. Outpatient work-up for obstructive sleep apnea would be recommended. Inpatient E&M: [id number] Subs Hosp L2
--- NOTE | 2020-03-26 16:18 | PN.ID_ITS ---
Patient Problems: Active and Suspected Problems (Last Updated 07/17/17 @ 15:40 by Giselle Becerra) Acute appendicitis (Acute) COVID-19 (Acute) Subjective: Feeling better, ate some soft diet today, no fever. Mild abd soreness. No BM or flatus yet. - Physical Exam Vitals/I&O's: Vital Signs Temp Pulse Resp BP Pulse Ox 98.8 F 92 16 119/76 94 03/26/20 15:44 03/26/20 15:44 03/26/20 15:44 03/26/20 15:44 03/26/20 15:44 Oxygen Flow Rate (L/min) 1.5 Oxygen Delivery Method Nasal Cannula Weight: 139 kg Body Mass Index (BMI) 21.0 Intake and Output for Last 24 Hours 03/24/20 03/25/20 03/26/20 23:59 23:59 23:59 Intake Total 2162.88 / 2168.43 4248.12 / 4248.12 1558.83 / 1558.83 Output Total 25 / 340 1320 / 1320 750 / 750 Balance 2137.88 / 1828.43 2928.12 / 2928.12 808.83 / 808.83 General: Alert, Cooperative, No apparent distress Lungs: Clear to auscultation, Diminished Cardiovascular: Regular rate, Regular Rhythm Abdomen: Soft, Non Tender, Non-Distended, Obese Skin: No rashes Laboratory Results 03/26/20 06:14: WBC 11.5 H, RBC 3.97 L, Hgb 12.1, Hct 37.0, MCV 93.2, MCH 30.5, MCHC 32.7, RDW Std Deviation 49.6 H, RDW Coeff of Omid 14.4, Plt Count 203, MPV 9.6, Immature Gran % (Auto) 0.500, Neut % (Auto) 79.9 H, Lymph % (Auto) 13.8 L, [place] % (Auto) 5.3, Eos % (Auto) 0.3, Baso % (Auto) 0.2, Absolute Neuts (auto) 9.2 H, Absolute Lymphs (auto) 1.59, Nucleated RBC % 0 03/26/20 06:14: Sodium 142, Potassium 3.6, Chloride 113 H, Carbon Dioxide 21.0, Anion Gap 8, BUN 8, Creatinine 0.67, Estim Creat Clear Calc 82.98, Est GFR (MDRD) Af Amer 122, Est GFR (MDRD) Non-Af 101, BUN/Creatinine Ratio 12.0, Glucose 106, Calcium 7.0 L, Total Bilirubin 0.40, AST 14 L, ALT 12 L, Alkaline Phosphatase 71, Total Protein 5.4 L, Albumin 2.0 L, Globulin 3.4, Albumin/Globulin Ratio 0.6 L Current Medications Acetaminophen (Acetaminophen 650 Mg/20 Ml Udc) 650 mg PO Q6H PRN PRN PRN Reason: Pain 1-10 or Fever Hydrocodone Bitart/Acetaminophen (Hydrocodone Bitartrate/Apap 5/325 Tablet) 1 - 2 tablet PO Q4H PRN PRN PRN Reason: Pain Score 1-10 Last Admin: 03/26/20 03:37 Dose: 2 tablet Documented by: Albuterol Sulfate (Albuterol Ih 8.5 Gm (Proair) Inhaler (200 Puffs)) 2 puff INHALATION Q4H PRN PRN PRN Reason: SHORTNESS OF BREATH Amlodipine Besylate (Amlodipine 5 Mg Tablet) 5 mg PO DAILY [facility] Last Admin: 03/26/20 10:33 Dose: 5 mg Documented by: Aspirin (Aspirin E.C. 81 Mg Tablet) 81 mg PO DAILY [facility] Last Admin: 03/26/20 10:34 Dose: 81 mg Documented by: Enoxaparin Sodium (Enoxaparin 40 Mg/0.4 Ml Syringe) 40 mg SC DAILY@0600 [facility] Last Admin: 03/26/20 05:41 Dose: 40 mg Documented by: Sodium Chloride () 250 mls @ 15 mls/hr IV .[id number] PRN PRN Reason: Saline Flush Last Infusion: 03/25/20 20:09 Dose: Infused Documented by: Sodium Chloride () 250 mls @ 15 mls/hr IV .[id number] PRN PRN Reason: Additional IVPB Infusion Piperacillin Sod/Tazobactam (Sod 3.375 gm/ Sodium Chloride) 50 mls @ 12.5 mls/hr IV Q8 [facility] Last Admin: 03/26/20 13:41 Dose: 12.5 mls/hr Documented by: Levothyroxine Sodium (Levothyroxine 150 Mcg Tablet) 150 mcg PO DAILY@0600 [facility] Last Admin: 03/26/20 05:41 Dose: 150 mcg Documented by: Metoprolol Succinate (Metoprolol(Xl)Succ 50 Mg Tablet) 50 mg PO DAILY [facility] Last Admin: 03/26/20 10:33 Dose: 50 mg Documented by: Morphine Sulfate (Morphine 2 Mg/Ml Syringe) 2 - 4 mg IV Q1H PRN PRN PRN Reason: Pain Score 1-10 Ondansetron HCl (Ondansetron 4 Mg/2 Ml Vial) 4 mg IV Q8H PRN PRN PRN Reason: Nausea Sodium Chloride (0.9% Saline Lock 10 Ml Syringe) 10 - 40 ml IV UD PRN PRN Reason: SALINE FLUSH Medical Necessity - Tobacco Use Smoking Status: Smoker, status unknown Route of nutrition/ use of supplements: [] Nutritional Intake: [] IV Site: [] [place] Catheter: [] - Assessment/Plan Antibiotics: [] Assessment/Plan: [] Active and Suspected Problems (Last Updated 07/17/17 @ 15:40 by Giselle Becerra) Acute appendicitis (Acute) COVID-19 (Acute) acute ruptured appendicitis - cont zosyn, now s/p OR 03/[address] Pérez. Plan on stopping abx on POD 4. covid - sx started on 03/12/10, appears to have completely recovered. Covid pcr (+) here, but likely no longer infectious. No hypoxia/dyspnea/cough on presentation here. Would keep in isolation at least for now. Will follow
[2020-03-27 03:30] VITALS: BP 128/64; PULSE 88; RESP 20; TEMP 37.1; O2SAT 92
[2020-03-27] MEDS: Enoxaparin 40 MG/0.4 ML Syringe SC (05:28)
[2020-03-27] MEDS: Levothyroxine 150 MCG Tablet PO (05:28)
[2020-03-27] MEDS: Furosemide 20 MG/2 ML VIAL IV (05:28)
[2020-03-27] MEDS: 0.9% Saline Lock 10 ML Syringe IV ×2 (05:29→09:06)
--- NOTE | 2020-03-27 07:08 | PCM.PN.BLA ---
Progress Note Verbal report Pt passing flatus and tolerating diet Afebrile Will advance diet as tolerated CBC pending Pt ready for surgical discharge. Outpt oral Ab prescribed. Continue IV while hospitalized Oxygen requirement still noted STROKE Vital Signs/Narrative: Vital Signs Temp Pulse Resp BP Pulse Ox 03/27/20 03:30 98.8 F 88 20 H 128/64 H 92
[2020-03-27 08:03] LABS: Absolute Lymphocyte Count 1.83 X10^3/uL (0.83-4.51); Absolute Neutrophil Count 7.2 X10^3/uL (2.0-7.7); Basophil# 0.04 X10^3/uL; Basophil% 0.4 % (0-1); Eosinophil# 0.07 X10^3/uL; Eosinophils% 0.7 % (0-5); Hemoglobin 12.4 g/dL (12.0-15.0); Lymphocyte # 1.83 X10^3/ul (4.0); Lymphocyte % 18.3 % (19-41); Mean Corp Hgb Conc 33.5 g/dL (32-36); Mean Corpuscular Hgb 30.8 pg (27.0-32.0); Mean Platelet Vol. 10.3 fl (6.2-12.0); Monocyte# 0.82 X10^3/uL; Monocyte% 8.2 % (0-10); NRBC Flagged by Analyzer 0 % (0-5); Neutrophil # 7.17 X10^3/uL (2.7-7.7); Neutrophil % 71.9 % (47-70); Platelet Count 265 K/mm3 (150-450); RBC Distribution Width CV 14.1 % (11.6-14.6); RBC Distribution Width SD 47.9 fl (35.1-43.9); Red Blood Count 4.02 M/mm3 (4.2-5.4)
[2020-03-27 08:18] LABS: ALB/GLOB Ratio 0.5 RATIO (0.9-2.4); AST(SGOT) 17 U/L (15-37); Alanine Aminotransfer ALT/SGPT 11 U/L (13-56); Albumin, Serum 2.1 g/dL (3.2-5.0); Alkaline Phosphatase 76 U/L (45-117); Anion Gap 6 (5-15); BUN 6 mg/dL (7-18); Calcium,Total 7.7 mg/dL (8.5-10.1); Chloride 107 mmol/L (98-107); Creatinine, Serum 0.75 mg/dL (0.55-1.02); EST Glomerular Filtration Rate 88 mL/min (>60); Est Glom Filt Rate - Afr Amer 106 mL/min (>60); Estimated Creatinine Clearance 74.13 ml/min; Globulin 4.4 g/dL (2.2-4.2); Glucose 91 mg/dL (74-106); Potassium 3.3 mmol/L (3.5-5.1); Protein, Total 6.5 g/dL (6.4-8.2); Sodium Level 139 mmol/L (136-145)
[2020-03-27 09:04] VITALS: BP 133/59; PULSE 96; RESP 20; TEMP 36.4; O2SAT 92
[2020-03-27 09:06] VITALS: PULSE 96
[2020-03-27] MEDS: amLODIPine 5 MG Tablet PO (09:06)
[2020-03-27] MEDS: Aspirin E.C. 81 MG Tablet PO (09:06)
[2020-03-27] MEDS: Metoprolol(XL)Succ 50 MG Tablet PO (09:06)
[2020-03-27 09:13] VITALS: O2SAT 88; O2SAT 89; O2SAT 90
--- NOTE | 2020-03-27 12:36 | PCM.PN.HOSP ---
Patient Problems: Active and Suspected Problems (Last Updated 07/17/17 @ 15:40 by Giselle Becerra) Acute appendicitis (Acute) COVID-19 (Acute) Reason for Visit: Follow-up on hypoxia/Acute COVID-19 infection Subjective: Patient was seen and examined. She feels much improved. Remains on oxygen. She was evaluated for home oxygen and qualified. Objective: Physical exam: General: Alert, Oriented x3, Cooperative, No apparent distress, - - on 2L oxygen, morbidly obese HEENT: Atraumatic, PERRLA, EOMI, Normocephalic Neck: Supple Lungs: Clear to auscultation, Normal air movement Cardiovascular: Regular rate, Regular Rhythm, Normal S1, Normal S2, No murmurs Abdomen: Bowel Sounds Present, Soft, Non Tender, Non-Distended, No Hepato-splenomegaly Extremities: No edema Skin: No rashes Musculoskeletal: No Tenderness to Palpation of Joints or Extremities Lymphatic: No Cervical, Supraclavicular, or Inguinal Adenopathy - except for left peripheral field neglect Neurological: Neuro grossly intact Psych/Mental Status: Normal Affect, Appropriate Vitals/I&O's: Vital Signs Temp Pulse Resp BP Pulse Ox 97.6 F L 96 20 H 133/59 H 90 03/27/20 09:04 03/27/20 09:06 03/27/20 09:04 03/27/20 09:04 03/27/20 09:13 Oxygen Flow Rate (L/min) [ 2 AMBULATION with Oxygen] Oxygen Flow Rate (L/min) 2 Oxygen Delivery Method Nasal Cannula Weight: 139.8 kg Body Mass Index (BMI) 21.0 Intake and Output for Last 24 Hours 03/25/20 03/26/20 03/27/20 23:59 23:59 23:59 Intake Total 4248.12 / 4248.12 2408.83 / 2528.83 340 / 340 Output Total 1320 / 1320 2050 / 2550 1100 / 1100 Balance 2928.12 / 2928.12 358.83 / -21.17 -760 / -760 Laboratory Results 03/27/20 06:56: WBC 10.0, RBC 4.02 L, Hgb 12.4, Hct 37.0, MCV 92.0, MCH 30.8, MCHC 33.5, RDW Std Deviation 47.9 H, RDW Coeff of Omid 14.1, Plt Count 265, MPV 10.3, Immature Gran % (Auto) 0.500, Neut % (Auto) 71.9 H, Lymph % (Auto) 18.3 L, [place] % (Auto) 8.2, Eos % (Auto) 0.7, Baso % (Auto) 0.4, Absolute Neuts (auto) 7.2, Absolute Lymphs (auto) 1.83, Nucleated RBC % 0 03/27/20 06:56: Sodium 139, Potassium 3.3 L, Chloride 107, Carbon Dioxide 26.0, Anion Gap 6, BUN 6 L, Creatinine 0.75, Estim Creat Clear Calc 74.13, Est GFR (MDRD) Af Amer 106, Est GFR (MDRD) Non-Af 88, BUN/Creatinine Ratio 8.0 L, Glucose 91, Calcium 7.7 L, Total Bilirubin 0.50, AST 17, ALT 11 L, Alkaline Phosphatase 76, Total Protein 6.5, Albumin 2.1 L, Globulin 4.4 H, Albumin/Globulin Ratio 0.5 L Current Medications Acetaminophen (Acetaminophen 650 Mg/20 Ml Udc) 650 mg PO Q6H PRN PRN PRN Reason: Pain 1-10 or Fever Hydrocodone Bitart/Acetaminophen (Hydrocodone Bitartrate/Apap 5/325 Tablet) 1 - 2 tablet PO Q4H PRN PRN PRN Reason: Pain Score 1-10 Last Admin: 03/26/20 03:37 Dose: 2 tablet Documented by: Albuterol Sulfate (Albuterol Ih 8.5 Gm (Proair) Inhaler (200 Puffs)) 2 puff INHALATION Q4H PRN PRN PRN Reason: SHORTNESS OF BREATH Amlodipine Besylate (Amlodipine 5 Mg Tablet) 5 mg PO DAILY [facility] Last Admin: 03/27/20 09:06 Dose: 5 mg Documented by: Aspirin (Aspirin E.C. 81 Mg Tablet) 81 mg PO DAILY [facility] Last Admin: 03/27/20 09:06 Dose: 81 mg Documented by: Enoxaparin Sodium (Enoxaparin 40 Mg/0.4 Ml Syringe) 40 mg SC DAILY@0600 [facility] Last Admin: 03/27/20 05:28 Dose: 40 mg Documented by: Sodium Chloride () 250 mls @ 15 mls/hr IV .[id number] PRN PRN Reason: Saline Flush Last Infusion: 03/25/20 20:09 Dose: Infused Documented by: Sodium Chloride () 250 mls @ 15 mls/hr IV .[id number] PRN PRN Reason: Additional IVPB Infusion Piperacillin Sod/Tazobactam (Sod 3.375 gm/ Sodium Chloride) 50 mls @ 12.5 mls/hr IV Q8 [facility] Last Infusion: 03/27/20 11:37 Dose: Infused Documented by: Levothyroxine Sodium (Levothyroxine 150 Mcg Tablet) 150 mcg PO DAILY@0600 [facility] Last Admin: 03/27/20 05:28 Dose: 150 mcg Documented by: Metoprolol Succinate (Metoprolol(Xl)Succ 50 Mg Tablet) 50 mg PO DAILY [facility] Last Admin: 03/27/20 09:06 Dose: 50 mg Documented by: Ondansetron HCl (Ondansetron 4 Mg/2 Ml Vial) 4 mg IV Q8H PRN PRN PRN Reason: Nausea Sodium Chloride (0.9% Saline Lock 10 Ml Syringe) 10 - 40 ml IV UD PRN PRN Reason: SALINE FLUSH Last Admin: 03/27/20 09:06 Dose: 10 ml Documented by: STROKE Vital Signs/Narrative: Vital Signs Temp Pulse Resp BP Pulse Ox Pulse Ox Pulse Ox 03/27/20 09:13 88 89 03/27/20 09:06 96 03/27/20 09:04 97.6 F L 96 20 H 133/59 H 92 Pulse Ox 03/27/20 09:13 90 03/27/20 09:06 03/27/20 09:04 Medical Necessity - Tobacco Use Smoking Status: Smoker, status unknown Assessment/Plan All Active Problems (Last Updated 07/17/17 @ 15:40 by Giselle Becerra) Acute appendicitis (Acute) COVID-19 (Acute) 1. Acute respiratory failure, status post intubation, status post laparoscopic appendectomy, resolved Patient has been extubated, remains on 2 liters of oxygen Continue with breathing treatments,encourage use of incentive spirometer. Wean off oxygen for SPO2 more than 94% Patient qualifies for home oxygen, will be discharged on 2 L oxygen Education given about use of oxygen all the time, will need to follow-up with the primary care doctor to reevaluate for continued use of oxygen 2. POD #3, s/p laparoscopic appendectomy with drainage, intra-operative findings showed gangrenous perforated appendicitis. Pain is controlled. Discharged on Augmentin 3. Sepsis secondary to acute appendicitis, improved, s/p surgery Being discharged on Augmentin 4. Acute COVID-19 infection/pneumonia, improved Will continue management as #1 5. Hyperglycemia, type 2 DM ruled out with HgbA1c is 5.6 6. Hypertension, controlled, continue on amlodipine and metoprolol Continue to monitor vitals 7. Hypothyroidism, continue on levothyroxine 8. History of paroxysmal SVT, remains in NSR 9. Morbid obesity, BMI 54.9, lifestyle modification recommended. 10. DVT PPx- Lovenox SC 11. Disposition: Patient is medically stable for discharge on oxygen Inpatient E&M: [id number] [facility] L2
--- NOTE | 2020-03-27 12:37 | DCINST_ITS ---
- Discharge Diagnoses Current Active Problems: Current Active and Chronic Problems (Last Updated 07/17/17 @ 15:40 by Giselle Becerra) Hypothyroidism (Chronic) Acute appendicitis (Acute) COVID-19 (Acute) Obesity (BMI 30.0-34.9) (Chronic) Nonrheumatic mitral (valve) insufficiency (Chronic) Hyperlipidemia (Chronic) Paroxysmal ventricular tachycardia (Chronic) Hypertension (Chronic) Reason(s) for Visit for Discharge Instructions: Acute appendicitis, COVID-19 infection You will use the following diet at home:: Regular Your food should be the consistency of: Regular Your liquids should be the consistency of: Regular/Thin Discharge Activity: May Not Drive - for 1 week or while taking narcotic pain medicine. May shower in (days): 1 Weight Bearing Status: Weight bearing as tolerated Call your doctor if your incision/area has: Continuous Slow Oozing, Sudden Increased Bleeding, Increased Pain/ Swelling, Increased Redness, Foul Smelling Discharge Call your doctor if you observe: Fever of 101 or Higher Suture Line Care: Avoid Pulling/Pushing, Avoid Pinching/Bending Additional Dressing/Incision Instructions:: Change or remove dressing in 1 days. Leave steri-strips in place for 1 week. May change dressings daily and re- apply dry gauze as needed. May shower on Sunday03/28/20 Additional Instructions: Continue to use your incentive spirometer. Keep yourself hydrated. Continue to maintain strict hand hygiene. Follow-up with your primary care doctor within 2 weeks to have your oxygen needs evaluated. Follow-up with general surgery as already scheduled. Continue with post surgical instructions. Allergies/Adverse Reactions: Allergies No Known Allergies Allergy (Verified 03/24/20 10:01) Medications to take at Discharge amlodipine 5 mg tablet 5 mg PO DAILY 07/17/17 Aspirin [Aspirin EC] 81 mg PO DAILY@0800 03/24/20 Ibuprofen 800 mg PO DAILY PRN PRN 03/24/20 Levothyroxine Sodium [Synthroid] 150 mcg PO DAILY 03/24/20 Metoprolol(XL)Succ [Toprol Xl (Beta Mady)] 50 mg PO DAILY 03/24/20 Amoxicillin/Potassium Clav [Augmentin 875-125 Tablet] 1 ea PO BID #10 tab 03/26/20 Acetaminophen Liquid [Tylenol Liquid] 650 mg PO Q6H PRN PRN udc 03/27/20 Albuterol IH (ProAir) [Proair Hfa] 2 puff INHALATION Q4H PRN PRN inhaler 03/27/20 The following prescriptions were given: Amoxicillin/Potassium Clav [Augmentin 875-125 Tablet] 1 ea PO BID #10 tab Transmission Status: Received by [facility] Primary Care Physician: Shorty Ashley DO [NON-STAFF] - Please follow up with your Primary Care Physician in: within 2 weeks for repeat blood work and oxygen evaluation. Test Results: Test results from this visit will be discussed in further detail at your follow- up appointment, if applicable. Please Follow Up With: Rk Pérez MD - [phone] When: Call for appt. This will be a ph. call f/u in 7-10 days, please schedule Proposed Discharge Date: 03/27/20
[2020-03-27 12:56] VITALS: BP 130/56; PULSE 90; RESP 20; TEMP 35.9; O2SAT 96
--- NOTE | 2020-03-30 16:35 | CASEMGMT ---
BETTIE CM Discharge COVID-19 Follow-up Phone Call: Call Date: 03/30/2020 Discharge Date: 03/27/2020 Time of Call: 1630 Admitting Diagnosis: Acute appendicitis, COVID-19 Discharge follow-up call placed to pt. Pt states she has improved since discharge. States she did have some abd pain last evening for which she took Tylenol but states she has not needed any pain medication since. Pt states her PO has been 95-96% consistently and with ambulation does decrease to 93%. Pt states she wears her O2 continuously. Pt states her last temperature was 99.1 last night but has not had any others since. Pt did speak with Dr. Pushpa Smith yesterday and has an additional follow-up call/virtual visit with her scheduled. Also has a virtual appointment with Dr. Pérez scheduled for . Pt states she has been doing pretty well at keeping herself isolated from others. Pt denies any further questions or concerns. Jaguar Newsome RN CM
--- NOTE | 2020-03-31 07:48 | DS.PCM_ITS ---
Discharge Date and Diagnosis - Problem List Patient Problems: Active and Suspected Problems (Last Updated 07/17/17 @ 15:40 by Giselle Becerra) Acute appendicitis (Acute) COVID-19 (Acute) Date of Admission: 03/24/20 Date of Discharge: 03/27/20 - Primary Discharge Diagnosis Acute Problems: Active Problems (Last Updated 07/17/17 @ 15:40 by Giselle Becerra) Acute appendicitis (Acute) COVID-19 (Acute) - Secondary Discharge Diagnosis Chronic Problems: Chronic Problems (Last Updated 07/17/17 @ 15:40 by Giselle Becerra) Hypothyroidism (Chronic) Obesity (BMI 30.0-34.9) (Chronic) Nonrheumatic mitral (valve) insufficiency (Chronic) Hyperlipidemia (Chronic) Paroxysmal ventricular tachycardia (Chronic) Hypertension (Chronic) Hospital Course and Treatment Operations: appendectomy Summary of Care Provided: The patient is a 44 year old F who presented with severe epigastric and right lower quadrant abdominal pain. CT scan of ab/pel demonstrated acute ruptured appendicitis and thickened gallbladder wall. Patient was tested for COVID pre- operatively and returned positive. Dr. Pérez performed a laparoscopic a ppendectomy on 03/24/2020. Patient tolerated the procedure well. She was transferred to the ICU post-operatively still intubated. She was extubated on POD #1. CARLA drain was removed on POD #2. She was transferred to a regular floor. Infectious disease, hospitalist and coordinate measuring machine programmer were consulted to assist with medical management and COVID. Upon discharge, patient was sent home on oxygen. It was recommended the patient continue to isolate from others. She noted minimal abdominal discomfort. She denies nausea, vomiting. She is tolerating a diet. She will be discharged home on antibiotics for ruptured appendicitis. Patient Problems: Active and Suspected Problems (Last Updated 07/17/17 @ 15:40 by Giselle Becerra) Acute appendicitis (Acute) COVID-19 (Acute) - Physical Exam Vitals/I&O's: Vital Signs Temp Pulse Resp BP Pulse Ox 96.7 F L 90 20 H 130/56 H 96 03/27/20 12:56 03/27/20 12:56 03/27/20 12:56 03/27/20 12:56 03/27/20 12:56 Oxygen Flow Rate (L/min) [ 2 AMBULATION with Oxygen] Oxygen Flow Rate (L/min) 2 Oxygen Delivery Method Nasal Cannula Weight: 308 lb 3.3 oz Body Mass Index (BMI) 21.0 General: Alert, Oriented x3, Cooperative Abdomen: Bowel Sounds Present, Soft, Non Tender, - - Incisions c/d/i. No erythe ma or infection noted Discharge Diet: Light diet - advance as tolerated - if you have questions about your diet instructions, please talk to you doctor. Discharge Activity: May Not Drive - for 1 week or while taking narcotic pain medicine. May shower in (days): 1 Weight Bearing Status: Weight bearing as tolerated Call your doctor if your incision/area has: Continuous Slow Oozing, Sudden Increased Bleeding, Increased Pain/ Swelling, Increased Redness, Foul Smelling Discharge Call your doctor if you observe: Fever of 101 or Higher Suture Line Care: Avoid Pulling/Pushing, Avoid Pinching/Bending Additional Dressing/Incision Instructions:: Change or remove dressing in 1 days. Leave steri-strips in place for 1 week. May change dressings daily and re- apply dry gauze as needed. May shower on Sunday03/28/20 Home Medications: Medications to take at Discharge amlodipine 5 mg tablet 5 mg PO DAILY 07/17/17 Aspirin [Aspirin EC] 81 mg PO DAILY@0800 03/24/20 Ibuprofen 800 mg PO DAILY PRN PRN 03/24/20 Levothyroxine Sodium [Synthroid] 150 mcg PO DAILY 03/24/20 Metoprolol(XL)Succ [Toprol Xl (Beta Mady)] 50 mg PO DAILY 03/24/20 Amoxicillin/Potassium Clav [Augmentin 875-125 Tablet] 1 ea PO BID #10 tab 03/26/20 Acetaminophen Liquid [Tylenol Liquid] 650 mg PO Q6H PRN PRN udc 03/27/20 Albuterol IH (ProAir) [Proair Hfa] 2 puff INHALATION Q4H PRN PRN inhaler 02/27 06/16 Amoxicillin/Potassium Clav [Augmentin 875-125 Tablet] 1 ea PO BID #10 tab 03/27/20 Following Prescriptions Were Given to Patient: Amoxicillin/Potassium Clav [Augmentin 875-125 Tablet] 1 ea PO BID #10 tab Transmission Status: Received by [facility] Amoxicillin/Potassium Clav [Augmentin 875-125 Tablet] 1 ea PO BID #10 tab Transmission Status: Received by [id number] Primary Care Physician: Shorty Ashley DO [NON-STAFF] - Please follow up with your Primary Care Physician in: within 2 weeks for repeat blood work and oxygen evaluation. Please Follow Up With: Rk Pérez MD - [phone] When: Call for appt. This will be a ph. call f/u in 7-10 days, please schedule Please Follow Up With: Shorty Ashley DO Disposition: Home Minutes spent on discharge:: 20 Patient Condition:: Stable Medical Necessity - Tobacco Use Smoking Status: Smoker, status unknown Meaningful Use Info Meaningful Use Diagnoses (Choose all that apply): None applicable Inpatient E&M: [id number] [facility]
== END 2020-03-27 14:55 | disposition home or self-care (01) | DRG 853 ==
LOC: ED 13:04 → PCU 13:19 → ICU 19:30 → PCU 03-26 10:11
PROVIDERS: Anesthesiology; Emergency Medicine; Hospitalist; Internal Medicine; Admitting Provider Surgery; Emergency Provider Emergency Medicine; PCP Family Medicine; Visit Provider Surgery
PROC: 0DTJ4ZZ Resection of Appendix, Percutaneous Endoscopic Approach (ICD-10-PCS; CPT 44970; principal; 2020-03-24 14:00)
DX: A41.89 Other specified sepsis (principal); K35.32 Acute appendicitis with perforation, localized peritonitis, and gangrene, without abscess; J96.01 Acute respiratory failure with hypoxia; U07.1 COVID-19; Z68.43 Body mass index [BMI] 50.0-59.9, adult; I47.2 Ventricular tachycardia; R65.20 Severe sepsis without septic shock; K82.8 Other specified diseases of gallbladder; R73.9 Hyperglycemia, unspecified; E66.01 Morbid (severe) obesity due to excess calories; E03.9 Hypothyroidism, unspecified; E78.5 Hyperlipidemia, unspecified; E78.00 Pure hypercholesterolemia, unspecified; I34.0 Nonrheumatic mitral (valve) insufficiency; Z79.82 Long term (current) use of aspirin; I10 Essential (primary) hypertension; K44.9 Diaphragmatic hernia without obstruction or gangrene; Z79.899 Other long term (current) drug therapy
CPT/HCPCS: 36415; 36600; 71045; 74018; 74177; 76705; 80048; 80053; 81001; 81025; 82550; 82803; 82962; 83036; 83605; 83690; 83880; 84478; 84484; 85025; 85379; 85610; 87635; 88304; 93005; 94002; 94003; 94660; 97162; 99251; 99284; J7030; J7050; Q9967; A4216; G0463; J1940; J2405; J3010; U0002

== ENCOUNTER 2020-04-06 07:51 | Inpatient (IN) | payer OTHER, SELFPAY ==
[2020-03-24 20:16] VITALS: BMI 21.0
[2020-04-06] VITALS (9 sets, daily range): BP systolic 106–140; BP diastolic 40–89; PULSE 78–98; RESP 14–20; TEMP 36.3–37.5; O2SAT 95–99; BMI 52.8; BMI 52.6
--- NOTE | 2020-04-06 08:12 | CT_ITS ---
STUDY: CT ABDOMEN AND PELVIS WITH CONTRAST REASON FOR EXAM: Female, 44 years old. Right abdomen pain, nausea, rectal bleeding, elevated WBC, 2 week post appendectomy, prior COVID +. Hx hypertension. RADIATION DOSAGE (If Supplied By Facility): CTDIvol = ( 16.98 ) mGy, DLP = ( 1314.76 ) mGycm TECHNIQUE: Transaxial images were obtained from the dome of the diaphragm to the symphysis pubis without oral contrast. IV 100mL Isovue-300 was administered. Sagittal and coronal images were reconstructed. Individualized dose optimization techniques were used for this CT. COMPARISON: Comparison is made with prior study 03/24/2020. FINDINGS: Progressive atelectasis and/or infiltrates at the lung bases more prominent on the right side. The visualized portions of the heart are within normal limits. There is decreased attenuation of the liver consistent with steatosis. Normal gallbladder and extrahepatic biliary system. Normal spleen. Normal pancreas. Normal bilateral adrenal glands. Normal right kidney. Normal left kidney. There is a small hiatal hernia. Normal small intestine. There now is evidence of circumferential wall thickening of the cecum and ascending colon. There is a heterogeneous appearance of the cecum. There is evidence of submucosal pneumatosis in the region of the cecum. Ischemic changes should be ruled out. Increased markings in the surrounding peritoneal fat as well as mesenteric adenopathy in the right lower quadrant. Inflammatory changes also seen in the root of the mesentery anterior to the aorta in the central portion of the abdomen. The patient is status post appendectomy as compared to prior study. Normal abdominal aorta. Normal inferior vena cava. Normal retroperitoneum. Normal urinary bladder. Normal abdominal wall. Normal osseous structures. CT/Abdomen/Pelvis W IV Cont ONLY IMPRESSION: The patient is status post appendectomy with postsurgical changes in the right lower quadrant. Inhomogeneous appearance of the cecum with findings suggestive of submucosal pneumatosis. There is evidence of colitis involving the descending colon up to the region of the hepatic flexure. There is evidence of mesenteric adenopathy in the right lower quadrant. Electronically Signed: Ward Crouch, at 9:57 EST , Service support ,
--- NOTE | 2020-04-06 08:15 | ED.VIS.GI ---
History of Present Illness Chief Complaint: GI Bleed Detail of Chief Complaint: rectal bleeding Informant: Patient - Abdominal Pain/Flank Pain Onset: Today - around 4 hrs [employer] Context: Sudden Onset - woke up 4AM w/ rectal bleeding when had BM Timing: Intermittent - x3-4 Quality: - - BRBPR, started mild, progressively worse/more Location: - - rectal Current Severity: Moderate Maximum Severity: Moderate Worsened by: Nothing Relieved by: Nothing - Nausea/Vomiting/Emesis GI Symptom: Nausea. Negative for: Vomiting - Diarrhea/Melena/Hematochezia GI Symptom: Hematochezia. Negative for: Diarrhea, Melena Onset: Today Stool Quality: BRIT per rectum Associated Symptoms: Negative for: Dysuria, Frequency, Hematuria, Urgency Narrative: 1-2 weeks ago, patient had laparoscopic appendectomy here for perforated gangrenous appendicitis, she has been having intermittent pains in her right abdomen for the last week or so since then. Now she presents with acute bleeding and states she feels weak but not lightheaded and has had no syncopal episodes. She has no new or worsening pains in her abdomen since the bleeding started this morning. She has nausea but no vomiting. No known history of peptic ulcer, she has never had a colonoscopy. She denies any preceding melena. She is on a baby aspirin because of a history of an irregular heartbeat but takes no anticoagulants. Of note, prior to taking the patient for her appendectomy she tested positive for Covid. Patient states that since her surgery she has had no more fevers or cough, and the last time she had those symptoms was way before her appendectomy, around March 16. She has needed a small amount of oxygen via nasal cannula since she was discharged, the patient states that she needed to be reintubated in the recovery room and it is not known if this is Covid-related. - Past Medical History (1) Hyperlipidemia Status: Chronic (2) Hypertension Status: Chronic (3) Hypothyroidism Status: Chronic (4) Nonrheumatic mitral (valve) insufficiency Status: Chronic (5) Paroxysmal ventricular tachycardia Status: Chronic Past Medical History - Allergies and Home Meds Allergies/Adverse Reactions: Allergies No Known Allergies Allergy (Verified 04/06/20 07:53) Primary Care Physician: Pushpa Smith MD [Primary Care Provider] - Surgical History: appendectomy, - - Hiatal hernia repair. Smoking Status: Never smoker Alcohol: None Review of Systems General: Reports: Malaise. Denies: Chills, Fever, Sweats Eyes: Denies: Visual changes - bilaterally, Diplopia ENT: Denies: Rhinorrhea, Sore throat Cardiovascular: Denies: Chest pain, Palpitations Respiratory: Denies: Dyspnea, Cough, Dyspnea on exertion Gastrointestinal: Reports: Abdominal pain, Nausea, Hematochezia. Denies: Vomiting, Diarrhea, Melena Genitourinary: Denies: Dysuria, Hematuria, Frequency Musculoskeletal: Denies: Myalgias, Back pain, Swelling, Extremity Pain Skin: Denies: Rash, Wounds Neurological: Denies: Headache, Weakness, Numbness Physical Exam Vital Signs/Narrative: Vital Signs Temp Pulse Resp BP Pulse Ox 04/06/20 07:53 97.9 F 98 14 126/71 H 98 Inital Vital Signs reviewed: Yes General: Well nourished, Well developed, Obese, No Acute Distress Head: Normocephalic, Atraumatic Eyes: Perrl, EOMI ENT: Moist mucous membranes, No rhinorrhea Neck: Supple, Nontender Cardiovascular: Regular rate, Regular rhythm, No murmurs. Negative for: Tachycardia Respiratory: No distress, CTA bilaterally, Chest nontender Abdomen: Soft, Nondistended, Normal bowel sounds, Tender - Mild right mid abdomen, - - Well-healed laparoscopic surgical incisions. Negative for: Guarding, Rebound tenderness Rectal: Nontender, - - No hemorrhoids or lesions. No specimen on digital rectal exam, no blood or pooling. Back: Nontender, Normal Inspection Extremities: Nontender, No edema Skin: Normal color, No rash Neurological: Alert, Oriented x3, Cranial nerves II-XII grossly intact, Normal Strength, Normal Sensation, Normal Gait Psychological: Normal affect, Normal Mood Diagnostic/Tx/Re-eval Impressions Abdomen/Pelvis CT 04/06/20 08:12 IMPRESSION: The patient is status post appendectomy with postsurgical changes in the right lower quadrant. Inhomogeneous appearance of the cecum with findings suggestive of submucosal pneumatosis. There is evidence of colitis involving the descending colon up to the region of the hepatic flexure. There is evidence of mesenteric adenopathy in the right lower quadrant. Electronically Signed: Ward Crouch, at 9:57 EST , Service support , 04/06/20 08:12 Abdomen/Pelvis W IV Cont ONLY [CT] Stat Laboratory Results 04/06/20 04/06/20 04/06/20 08:17 08:17 08:17 WBC 15.6 H RBC 4.34 Hgb 13.1 Hct 40.4 MCV 93.1 MCH 30.2 MCHC 32.4 RDW Std Deviation 47.8 H RDW Coeff of Omid 14.1 Plt Count 482 H MPV 9.4 Immature Gran % (Auto) 0.400 Neut % (Auto) 80.6 H Lymph % (Auto) 10.6 L [place] % (Auto) 7.8 Eos % (Auto) 0.3 Baso % (Auto) 0.3 Absolute Neuts (auto) 12.6 H Absolute Lymphs (auto) 1.65 Nucleated RBC % 0 Sodium 136 Potassium 3.9 Chloride 103 Carbon Dioxide 28.0 Anion Gap 5 BUN 7 Creatinine 0.78 Estim Creat Clear Calc 71.28 Est GFR (MDRD) Af Amer 102 Est GFR (MDRD) Non-Af 85 BUN/Creatinine Ratio 9.0 L Glucose 117 H Calcium 9.2 Total Bilirubin 0.40 AST 16 ALT 21 Alkaline Phosphatase 85 Total Protein 7.8 Albumin 2.8 L Globulin 5.0 H Albumin/Globulin Ratio 0.6 L Urine Color Urine Clarity Urine pH Ur Specific [place] Urine Protein Urine Glucose (UA) Urine Ketones Urine Occult Blood Urine Nitrite Urine Bilirubin Urine Urobilinogen Ur Leukocyte Esterase Urine RBC Urine WBC Ur Squamous Epith Cells Urine Bacteria Urine Mucus Blood Type O NEGATIVE Antibody Screen NEGATIVE 04/06/20 09:05 WBC RBC Hgb Hct MCV MCH MCHC RDW Std Deviation RDW Coeff of Omid Plt Count MPV Immature Gran % (Auto) Neut % (Auto) Lymph % (Auto) [place] % (Auto) Eos % (Auto) Baso % (Auto) Absolute Neuts (auto) Absolute Lymphs (auto) Nucleated RBC % Sodium Potassium Chloride Carbon Dioxide Anion Gap BUN Creatinine Estim Creat Clear Calc Est GFR (MDRD) Af Amer Est GFR (MDRD) Non-Af BUN/Creatinine Ratio Glucose Calcium Total Bilirubin AST ALT Alkaline Phosphatase Total Protein Albumin Globulin Albumin/Globulin Ratio Urine Color Yellow Urine Clarity Clear Urine pH 7.0 Ur Specific [place] 1.005 Urine Protein Negative Urine Glucose (UA) Normal Urine Ketones Negative Urine Occult Blood Negative Urine Nitrite Negative Urine Bilirubin Negative Urine Urobilinogen Normal Ur Leukocyte Esterase Negative Urine RBC 0 SEEN Urine WBC 0 SEEN Ur Squamous Epith Cells 0-5 SEEN Urine Bacteria 0 SEEN Urine Mucus 0 SEEN Blood Type Antibody Screen - Medical Decision Making Patient hemoglobin is normal at 13, although she does have a leukocytosis that is nonspecific in context. She was up and ambulatory several times in the emergency department without any orthostatic symptoms, and upon going to the bathroom had no further episodes of bleeding. CT shows signs of colitis in the descending colon, in addition to the above findings. She remained clinically and hemodynamically stable in the emergency department throughout her almost 3-hour visit. I discussed with Dr. Pérez. He reviewed the CT and was concerned about the appearance of the inflammatory changes that could represent something acute and less likely related to her appendicitis. Her recent COVID-19 diagnosis is concerning and it is unknown if it could be related to these findings, although micro emboli from thrombotic complications/ischemic colitis are a possibility, as are infectious etiologies. The patient confirms that she did take and finish her Augmentin as prescribed upon discharge from the hospital around 2 weeks ago. She has had no left-sided abdominal pain, just the intermittent right-sided pain that she has been dealing with postoperatively. Given all this, will discuss with hospitalist for admission, provide IV antibiotics, and at this time antiplatelet therapy since she has no active bleeding (will not anticoagulate at this time). ED Disposition - Plan for ED Patient: Disposition: Acute Care Hospital [facility] Diagnosis: Colitis, Rectal bleeding Referrals: Pushpa Smith MD [Primary Care Provider] -
[2020-04-06] MEDS: Ondansetron 4 MG/2 ML Vial IV ×2 (08:19→20:05)
[2020-04-06] MEDS: 0.9% Normal Saline 1,000 ML 1000 ML IV (08:19)
[2020-04-06 08:28] LABS: Absolute Lymphocyte Count 1.65 X10^3/uL (0.83-4.51); Absolute Neutrophil Count 12.6 X10^3/uL (2.0-7.7); Basophil# 0.05 X10^3/uL; Basophil% 0.3 % (0-1); Eosinophil# 0.04 X10^3/uL; Eosinophils% 0.3 % (0-5); Hematocrit 40.4 % (37-47); Hemoglobin 13.1 g/dL (12.0-15.0); Lymphocyte # 1.65 X10^3/ul (4.0); Lymphocyte % 10.6 % (19-41); Mean Corp Hgb Conc 32.4 g/dL (32-36); Mean Corpuscular Hgb 30.2 pg (27.0-32.0); Mean Corpuscular Volume 93.1 fL (81-99); Mean Platelet Vol. 9.4 fl (6.2-12.0); Monocyte# 1.21 X10^3/uL; Monocyte% 7.8 % (0-10); NRBC Flagged by Analyzer 0 % (0-5); Neutrophil # 12.55 X10^3/uL (2.7-7.7); Neutrophil % 80.6 % (47-70); Platelet Count 482 K/mm3 (150-450); RBC Distribution Width CV 14.1 % (11.6-14.6); RBC Distribution Width SD 47.8 fl (35.1-43.9); Red Blood Count 4.34 M/mm3 (4.2-5.4); White Blood Count 15.6 K/mm3 (4.4-11.0)
[2020-04-06 08:44] LABS: ALB/GLOB Ratio 0.6 RATIO (0.9-2.4); AST(SGOT) 16 U/L (15-37); Alanine Aminotransfer ALT/SGPT 21 U/L (13-56); Albumin, Serum 2.8 g/dL (3.2-5.0); Alkaline Phosphatase 85 U/L (45-117); Anion Gap 5 (5-15); BUN 7 mg/dL (7-18); Calcium,Total 9.2 mg/dL (8.5-10.1); Chloride 103 mmol/L (98-107); Creatinine, Serum 0.78 mg/dL (0.55-1.02); EST Glomerular Filtration Rate 85 mL/min (>60); Est Glom Filt Rate - Afr Amer 102 mL/min (>60); Estimated Creatinine Clearance 71.28 ml/min; Glucose 117 mg/dL (74-106); Potassium 3.9 mmol/L (3.5-5.1); Protein, Total 7.8 g/dL (6.4-8.2); Sodium Level 136 mmol/L (136-145)
[2020-04-06 09:11] LABS: Bacteria 0 SEEN /hpf (None Seen); Mucous, Urine 0 SEEN /hpf (<or=2+); Red Blood Cells-Urine 0 SEEN /hpf (0-5); White Blood Cells 0 SEEN /hpf (0-5)
[2020-04-06 09:18] LABS: Color, Urine Yellow (Yellow); Glucose, Dipstick Normal (Normal); Ketone-Dipstick Negative (Negative); Leukocyte Esterase-Dipstick Negative /ul (Negative); Nitrite-Dipstick Negative (Negative); Occult Blood-Urine Negative /ul (Negative); Protein-Dipstick Negative (Negative); Specific Gravity, Urine 1.005 (1.002-1.030); Urine Bilirubin Dipstick Negative (Negative); Urine Clarity Clear (Clear); Urine Urobilinogen Normal (Normal)
[2020-04-06 09:22] LABS: Squamous Epithelial Cells - UA 0-5 SEEN /hpf (5-10)
--- NOTE | 2020-04-06 11:20 | PCM.HP.STD ---
Problem List (1) Colitis Status: Acute (2) Rectal bleeding Status: Acute (3) Morbid obesity Status: Chronic (4) Hypothyroidism Status: Chronic Qualifiers: Hypothyroidism type: unspecified Qualified Code(s): E03.9 - Hypothyroidism, unspecified (5) Acute appendicitis Status: Resolved Qualifiers: Acute appendicitis type: unspecified acute appendicitis type Qualified Code(s): K35.80 - Unspecified acute appendicitis (6) COVID-19 Status: Resolved (7) Hyperlipidemia Status: Chronic Qualifiers: Hyperlipidemia type: unspecified Qualified Code(s): E78.5 - Hyperlipidemia, unspecified (8) Hypertension Status: Chronic Qualifiers: Hypertension type: essential hypertension Qualified Code(s): I10 - Essential (primary) hypertension History of Present Illness Date of Admission: 04/06/20 Chief Complaint: Abdominal pain, rectal bleeding The patient is a 44 y/o F w/ PMHx: GERD with peptic ulcer history, HTN, HLD, Obesity, recent COVID + 03/24/20 s/p symptom onset 03/14/2020 with fevers, mild cough with 03/24/2020 evaluation with at that time right sided abdominal pain with eventual appendectomy for gangrenous appendicitis to be perforated who now re-presents to the [facility] ED on 04/06/20 set of rectal bleeding with bowel movement at 4 AM noted to be intermittent with at least 3-4 episodes but progressively worsening with nausea without emesis with ongoing right sided abdominal discomfort, moderate in severity well as periumbilical discomfort, described as cramping. Patient does note ongoing loose stools with at least 3-4 times daily over the last 48 hours which had worsened since discharge she notes. She denies any recent fever, chills, chest pain, dyspnea or cough. Work-up in the ED included 7.9, heart 98, BP 126/71, respiratory rate 14, 90% on 2 L nasal cannula with noted 97% on room air, seated with WBC 15.6, hemoglobin 13.1, platelet 42 with left shift, CMP with glucose 117 otherwise not marked appearing, this is unremarkable, CT abdomen and pelvis with evidence recent status post appendectomy with postsurgical changes right lower quadrant with inhomogenous appearance of the cecum with findings suggestive of submucosal pneumatosis with evidence of colitis involving the descending colon up to the region of the hepatic flexure with evidence of mesenteric adenopathy in the right lower quadrant. The ED patient administered Zofran, aspirin 324 mg p.o. x1 as well as cefepime. She completed her abx therapy (augmentin) following her discharge. Past Medical History Past Medical History (Chronic Problems): Chronic Problems (Last Reviewed 04/06/20 @ 14:08 by Zaria TEJADA PA-C) Morbid obesity (Chronic) Hypothyroidism (Chronic) Obesity (BMI 30.0-34.9) (Chronic) Nonrheumatic mitral (valve) insufficiency (Chronic) Hyperlipidemia (Chronic) Paroxysmal ventricular tachycardia (Chronic) Hypertension (Chronic) Medical History: Medical History (Last Reviewed 04/06/20 @ 14:08 by Zaria TEJADA PA-C) Obesity (BMI 30.0-34.9) (Chronic) E66.9 Nonrheumatic mitral (valve) insufficiency (Chronic) I34.0 Hyperlipidemia (Chronic) E78.5 Paroxysmal ventricular tachycardia (Chronic) I47.2 Hypertension (Chronic) I10 Hiatal hernia K44.9 Hypothyroidism E03.9 Allergies No Known Allergies Allergy (Verified 04/06/20 07:53) Home Medications: Ambulatory Orders Medication Instructions Recorded amlodipine 5 mg tablet 5 mg PO DAILY 07/17/17 Aspirin [Aspirin EC] 81 mg PO DAILY@0800 03/24/20 Ibuprofen 800 mg PO DAILY PRN PRN 03/24/20 Levothyroxine Sodium [Synthroid] 150 mcg PO DAILY 03/24/20 Metoprolol(XL)Succ [Toprol Xl 50 mg PO DAILY 03/24/20 (Beta Mady)] Acetaminophen Liquid [Tylenol 650 mg PO Q6H PRN [place]N [facility] [place]27[place] Liquid] Surgical History: appendectomy, - - Hiatal hernia repair. 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 Paternal Family History: Family History (Last Reviewed 04/06/20 @ 14:08 by Zaria Minor PA, PA-C) Father Heart disease Sister Hypertension History Items: Heart Disease Review of Systems Constitutional: Reports: Anorexia, Malaise, Weakness, Fatigue. Denies: Chills, Fever, Weight Change HEENT: Denies: Head Aches, Sinus Congestion, Sinus Drainage Cardiovascular: Denies: Chest Pain, Palpitations Respiratory: Reports: Cough, Shortness of Breath. Denies: Shortness of breath at rest, Shortness of breath upon exertion, Sputum production Gastrointestinal: Reports: Abdominal Pain, Diarrhea, - - Some blood tinged stool noted.. Denies: Nausea, Vomiting Genitourinary: Denies: Dysuria Musculoskeletal: Reports: Joint Pain, Muscle pain. Denies: Joint Tenderness Skin: Denies: Rash, Wounds Neurological: Denies: Numbness, Tingling, Focal weakness Psychiatric: Denies: Anxiety, Depression, Homicidal Ideations, Suicidal Ideations Hematologic/ Lymphatic: Reports: Anemia. Denies: Easy Bruising, Easy Bleeding VTE Information - Inpt Only VTE Present on Admission: No VTE Mechan Device Prophylaxis: SCD's VTE Pharm Prophylaxis ordered?: Yes Patient Problems: Active and Suspected Problems (Last Reviewed 04/06/20 @ 14:08 by Zaria TEJADA PANamC) Colitis (Acute) Rectal bleeding (Acute) Subjective: Seated upright in ED bed, fatigued and uncomfortable appearing. Objective: Physical Examination: General: awake, alert, oriented x 3 and cooperative, seated upright in the ED bed in no apparent distress but uncomfortable appearing. Skin: normal color, turgor, no icterus, cyanosis. HEENT: AT/NC, EOMI, PERRLA, mildly dry MM, no carotid bruits or JVD noted: However, thickened neck makes examination difficult. Lungs: CTA bilaterally, moderate effort, moderate decrease BL bases, no rales, ronchi or wheezing. Heart: Regular rate and rhythm; no gallop, rub audible. Abdomen: soft, morbidly obese, mild generalized discomfort with palpation, right upper and lower primarily and periumbilical region, no rebound or guarding specifically, unable to discern distention, mildly hyperactive bowel sounds, no obvious HSM but habitus makes examination difficult. Neurological: patient awake, alert, oriented as noted; cognitive function intact; pupils equally reactive to light and accomodation; cranial nerves II-XII grossly normal, moving all 4 extremities, no focal deficits, strength moderately global decrease secondary to acute presentation. Psychiatric: affect appears fatigued and mildly comfortable otherwise normal, no acute evidence of depressive or anxiety feelings. - Physical Exam Vitals/I&O's: Vital Signs Temp Pulse Resp BP Pulse Ox 97.9 F 87 18 134/57 H 97 04/06/20 07:53 04/06/20 10:00 04/06/20 10:00 04/06/20 10:00 04/06/20 10:00 Oxygen Flow Rate (L/min) 2 Oxygen Delivery Method Room Air Weight: 289 lb Body Mass Index (BMI) 52.8 Intake and Output for Last 24 Hours 04/04/20 04/05/20 04/06/20 23:59 23:59 23:59 Intake Total 1000 / 1000 Balance 1000 / 1000 Laboratory Results 04/06/20 08:17: WBC 15.6 H, RBC 4.34, Hgb 13.1, Hct 40.4, MCV 93.1, MCH 30.2, MCHC 32.4, RDW Std Deviation 47.8 H, RDW Coeff of Omid 14.1, Plt Count 482 H, MPV 9.4, Immature Gran % (Auto) 0.400, Neut % (Auto) 80.6 H, Lymph % (Auto) 10.6 L, [place] % (Auto) 7.8, Eos % (Auto) 0.3, Baso % (Auto) 0.3, Absolute Neuts (auto) 12.6 H, Absolute Lymphs (auto) 1.65, Nucleated RBC % 0 04/06/20 08:17: Sodium 136, Potassium 3.9, Chloride 103, Carbon Dioxide 28.0, Anion Gap 5, BUN 7, Creatinine 0.78, Estim Creat Clear Calc 71.28, Est GFR (MDRD) Af Amer 102, Est GFR (MDRD) Non-Af 85, BUN/Creatinine Ratio 9.0 L, Glucose 117 H, Calcium 9.2, Total Bilirubin 0.40, AST 16, ALT 21, Alkaline Phosphatase 85, Total Protein 7.8, Albumin 2.8 L, Globulin 5.0 H, Albumin/Globulin Ratio 0.6 L 04/06/20 08:17: Blood Type O NEGATIVE, Antibody Screen NEGATIVE 04/06/20 09:05: Urine Color Yellow, Urine Clarity Clear, Urine pH 7.0, Ur Specific [place] 1.005, Urine Protein Negative, Urine Glucose (UA) Normal, Urine Ketones Negative, Urine Occult Blood Negative, Urine Nitrite Negative, Urine Bilirubin Negative, Urine Urobilinogen Normal, Ur Leukocyte Esterase Negative, Urine RBC 0 SEEN, Urine WBC 0 SEEN, Ur Squamous Epith Cells 0-5 SEEN, Urine Bacteria 0 SEEN, Urine Mucus 0 SEEN Current Medications Cefepime HCl 1 gm/ Sodium (Chloride) 50 mls @ 100 mls/hr IV X1 ONE Stop: 04/06/20 11:29 Assessment/Plan All Active Problems (Last Reviewed 04/06/20 @ 14:08 by Zaria TEJADA, PA-C) Colitis (Acute) Rectal bleeding (Acute) Acute appendicitis (Resolved) COVID-19 (Resolved) The patient is a 44 y/o F w/ PMHx: GERD with peptic ulcer history, HTN, HLD, Obesity, recent COVID + 03/24/20 s/p symptom onset 03/14/2020 with fevers, mild cough with 03/24/2020 evaluation with at that time right sided abdominal pain with eventual appendectomy for gangrenous appendicitis to be perforated who now re-presents to the [facility] ED on 04/06/20 set of rectal bleeding with bowel movements, loose (3-4x daily x 48 hours) at 4 AM noted to be intermittent with at least 3-4 episodes but progressively worsening with nausea without emesis with ongoing right sided abdominal discomfort, moderate in severity well as periumbilical discomfort, described as cramping. 1. Acute descending colitis: CT A/P w/ evidence of sigmoid colitis. Work-up in the ED included 7.9, heart 98, BP 126/71, respiratory rate 14, 90% on 2 L nasal cannula with noted 97% on room air, seated with WBC 15.6, hemoglobin 13.1, platelet 42 with left shift, CMP with glucose 117 otherwise not marked appearing, this is unremarkable, CT abdomen and pelvis with evidence recent status post appendectomy with postsurgical changes right lower quadrant with inhomogenous appearance of the cecum with findings suggestive of submucosal pneumatosis with evidence of colitis involving the descending colon up to the region of the hepatic flexure with evidence of mesenteric adenopathy in the right lower quadrant. Admit to medical surgical floor, continuing Covid reassessment as noted, continue judicious hydration, monitor I&Os, maintain NPO status w/ bowel rest, treat with zosyn regimen, IV famotidine, anti-emetics, pain regimen PRN, pending stools Cx and differential acid to be cautious. General surgery consulted and following. 2. Recent Acute Viral Syndrome, COVID-19: Patient prior to recent admission OR with testing positive at that time mild symptoms starting 03/14/2020 with fever as well as cough, resolved. Upon ED presentation with acute presentation general surgery noted concern for possible presentation associate with Covid status, obtained Covid panel including D-dimer, procalcitonin, CRP, CPK, Ferritin, LDH cautious with noted ferritin 140, LDH 208, CRP 57.3, pro calcitonin 0.04, D-dimer 3.97 as well as lactic acid given abdominal complaints and atypical presentation noted to be 0.6, given recent CT abdomen with IV contrast upon presentation will pursue CTPA 04/07/2020 to be cautious and maintained in interim on therapeutic Lovenox cautiously monitoring for recurrent rectal bleeding. 3. Recent acute ruptured gangrenous appendicitis: Patient completed antibiotic Augmentin therapy initially IV inpatient status post with laparoscopic appendectomy with drainage, general surgery consulted and following currently. 4. Hypertension: Continue home regimen including metoprolol, Norvasc with hold parameters, PRN hydralazine. 5. Hypothyroidism: Continue home synthroid regimen. 6. Morbid Obesity: Weight loss and lifestyle changes encouraged. 7. GERD with history of peptic ulcer disease: We will maintain on IV famotidine on bowel rest as noted above. 8. DVT prophylaxis: SCDs, therapeutic Lovenox cautiously monitoring for any worsening rectal bleeding. 9. Code status: Full Code status. Inpatient E&M: 83266 Init Hosp L3
[2020-04-06] MEDS: Aspirin 81 MG TAB.CHEW 324 MG PO (11:31)
[2020-04-06 12:54] LABS: D-Dimer Quantitative (DVT/PE) 3.97 FEU/ug/m (0.27-0.49)
--- NOTE | 2020-04-06 13:03 | NURSING ---
aware per alterations supervisor sent dr. schneider text message regarding DDimer.
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
[2020-04-06 13:27] LABS: Ferritin 140 ng/mL (8-252); LDH 208 U/L (84-246); Magnesium 2.1 mg/dL (1.6-2.6)
[2020-04-06 13:32] LABS: Procalcitonin 0.04 ng/mL (0.00-0.09)
[2020-04-06] MEDS: 0.9% Normal Saline 1,000 ML 100 ML IV (13:32)
[2020-04-06] MEDS: Enoxaparin 150 MG/ML Syringe 130 MG SC (14:03)
[2020-04-06 14:21] LABS: Lactic Acid 0.6 mmol/L (0.4-1.9)
[2020-04-06 15:19] LABS: Hemoglobin 11.8 g/dL (12.0-15.0)
[2020-04-06 18:26] LABS: Hematocrit 35.9 % (37-47); Hemoglobin 11.3 g/dL (12.0-15.0)
[2020-04-06] MEDS: 0.9% Saline Lock 10 ML Syringe IV (20:06)
--- NOTE | 2020-04-06 21:45 | NURSING ---
Around 2144 this RN got the pt up to the bathroom and stayed in the room with her. As she was sitting on the toilet, she called out I'm going to pass out. I immediately went into the bathroom and called for assistance. Pt was diaphoretic and was having trouble responding. Mariam GUZMAN and I shook pt and continued to talk to her to keep her from passing out until we got assistance. The decision was made to call for a rapid response to obtain more help since we felt she was not responding appropriately. After we got her back to bed, it was noted that the toilet was filled with bright red blood.
--- NOTE | 2020-04-06 22:05 | PCM.RRT.BLA ---
Rapid Response Note - Blank Rapid response was called because while patient was sitting on the bathroom she passed out. She had bright red blood per rectum. Patient was assessed at the bedside. Patient appeared lethargic. Heart sounds S1-S2 present. Lung clear to auscultate. Abdomen bowel sounds present soft nontender. Impression: Likely orthostatic hypotension versus vasovagal syncope. Nurses initiated normal saline at 200 mL/h. Received Lovenox earlier in the day but has been discontinued. We will get orthostatic vitals. Patient is n.p.o. and on Protonix.
[2020-04-06 22:08] LABS: Hematocrit 32.3 % (37-47); Hemoglobin 10.3 g/dL (12.0-15.0)
[2020-04-06] MEDS: 0.9% Normal Saline 1,000 ML 200 ML IV (22:21)
[2020-04-06] MEDS: Famotidine 200 MG/20 ML MDV 20 MG in 0.9% Normal Saline (Pres. free 8 ML 300 MG IV (22:25)
[2020-04-06 22:36] LABS: Bedside Glucose 153 mg/dL (70-110)
[2020-04-07] VITALS (50 sets, daily range): BP systolic 76–164; BP diastolic 22–87; PULSE 76–110; RESP 15–29; TEMP 35.5–37.2; O2SAT 96–100
[2020-04-07 00:11] LABS: Hematocrit 28.3 % (37-47); Hemoglobin 8.9 g/dL (12.0-15.0)
[2020-04-07] MEDS: 0.9% Normal Saline 1,000 ML 999 ML IV (00:35)
[2020-04-07] MEDS: Ondansetron 4 MG/2 ML Vial IV ×2 (03:35→20:19)
[2020-04-07] MEDS: 0.9% Saline Lock 10 ML Syringe IV ×3 (04:16→21:03)
[2020-04-07 04:22] LABS: Hematocrit 29.4 % (37-47); Hemoglobin 9.4 g/dL (12.0-15.0)
[2020-04-07 04:52] LABS: ALB/GLOB Ratio 0.5 RATIO (0.9-2.4); AST(SGOT) 12 U/L (15-37); Alanine Aminotransfer ALT/SGPT 13 U/L (13-56); Albumin, Serum 1.8 g/dL (3.2-5.0); Alkaline Phosphatase 51 U/L (45-117); Anion Gap 4 (5-15); BUN 10 mg/dL (7-18); BUN/Creat Ratio 11.7 RATIO (10-20); Calcium,Total 6.9 mg/dL (8.5-10.1); Chloride 113 mmol/L (98-107); Creatinine, Serum 0.86 mg/dL (0.55-1.02); EST Glomerular Filtration Rate 76 mL/min (>60); Est Glom Filt Rate - Afr Amer 92 mL/min (>60); Estimated Creatinine Clearance 64.65 ml/min; Globulin 3.4 g/dL (2.2-4.2); Glucose 176 mg/dL (74-106); Potassium 4.7 mmol/L (3.5-5.1); Protein, Total 5.2 g/dL (6.4-8.2); Sodium Level 140 mmol/L (136-145)
--- NOTE | 2020-04-07 05:51 | VDLE_ITS ---
Reason For Study: Elevated D-dimer RIGHT LEFT GSV is normal. GSV is normal. CFV is compressible, spontaneous, phasic, CFV is compressible, spontaneous, phasic, competent and demonstrates normal competent, and demonstrates normal augmentation. augmentation. FV is compressible, spontaneous, phasic, FV is compressible, spontaneous, phasic, competent and demonstrates normal competent and demonstrates normal augmentation. augmentation. POP V is compressible, spontaneous, phasic, POP V is compressible, spontaneous, phasic, competent and demonstrates normal competent and demonstrates normal augmentation. augmentation. T/P Trunk is compressible. T/P Trunk is compressible. PTV is compressible. PTV is compressible. RT PerV is compressible. LT PerV is compressible. Procedure This is a venous duplex using B-mode, color flow and spectral Doppler. Exam performed portable in patient room. A preliminary report was called and/or faxed to [facility]. Interpretation Summary No evidence for acute deep venous thrombosis bilateral lower extremities with patent and compressible bilateral great saphenous veins. Ordering Physician: Rk Pérez Referring Physician: Pushpa Smith Performed By: Katty Barone RVT
--- NOTE | 2020-04-07 05:55 | CT_ITS ---
STUDY: CTA CHEST REASON FOR EXAM: Female, 44 years old. ELEVATED D-DIMER AND HEMORRHAGIC SHOCK FOLLOWING GI BLEED S/P APPENDECTOMY 2 WEEKS AGO. POSITIVE COVID RADIATION DOSAGE (If Supplied By Facility): CTDIvol = ( 8.46 ) mGy, DLP = ( 449.34 ) mGycm TECHNIQUE: The examination was performed with the intravenous administration of IV 100mL [id number]-370. Post-processing of the angiographic images was performed, with multiplanar reformation and 3D reconstruction. Individualized dose optimization techniques were used for this CT. COMPARISON: None. FINDINGS: Normal enhancement of the main pulmonary artery and right and left pulmonary arteries. Normal enhancement of the bilateral peripheral pulmonary arteries. There is no demonstrated pulmonary embolism. Normal thoracic aorta and visualized great vessels. There is no demonstrated aortic dissection. Normal heart and pericardium. Normal mediastinum. Normal hilar regions. Normal visualized trachea and bronchi. The lungs are well expanded. There is thickening of the right major fissure suggestive of possibly small amount of fluid within it. Increased markings are seen in the posterior aspect of the lingular segment of the left upper lobe suggestive of atelectasis. Mild degree of bibasilar atelectasis as well. Normal chest wall structures. There are degenerative changes of thoracic spine. Normal visualized upper abdomen. CT/CTA Chest W/WO Contrast IMPRESSION: Thickening of the right major fissure with some mild increased markings in the lingular segment of the left upper lobe as well as in the right lung base suggestive of atelectasis. No evidence of pulmonary embolism. Electronically Signed: Ward Crouch, at 9:48 EST , Service support ,
--- NOTE | 2020-04-07 05:56 | PCM.PN.SRG ---
Patient Problems: Active and Suspected Problems (Last Reviewed 04/06/20 @ 14:08 by Zaria TEJADA PA-C) Colitis (Acute) Rectal bleeding (Acute) Subjective: Patient states that at rest she has no abdominal pain. She has mild discomfort with deep palpation right upper quadrant. She states that whereas earlier in the evening she had profuse rectal bleeding it is slowing. She thinks the last time she moved her bowels was approximately an hour and a half ago. - Physical Exam Vitals/I&O's: Vital Signs Temp Pulse Resp BP Pulse Ox 96.2 F L 90 25 H 94/56 L 100 04/07/20 04:12 04/07/20 05:30 04/07/20 05:00 04/07/20 05:30 04/07/20 05:00 Oxygen Flow Rate (L/min) 2 Oxygen Delivery Method Nasal Cannula Weight: 286 lb 9.615 oz Body Mass Index (BMI) 52.6 Orthostatic Vital Signs Start: 04/06/20 22:13 Freq: q24h Status: Active Protocol: Activity Type Activity Date Activity User E-Sign Co-Sign Detail Recorded Client Recorded Date Recorded By Document 04/06/20 22:13 [facility] [id number] 04/06/20 22:14 CJY 04/06/20 22:13 Orthostatic Vitals Sitting -Blood Pressure 109/69 -Extremity Use Right Arm -Pulse Rate 92 Lying -Blood Pressure 135/60 -Extremity Use Right Arm -Pulse Rate 81 Intake and Output for Last 24 Hours 04/05/20 04/06/20 04/07/20 23:59 23:59 23:59 Intake Total 1811.67 / 1811.67 2451.67 / 2451.67 Output Total 300 / 300 1400 / 1400 Balance 1511.67 / 1511.67 1051.67 / 1051.67 General: Alert, Oriented x3 Lungs: Clear to auscultation, - - Diminished in the bases Cardiovascular: Regular rate, Regular Rhythm Abdomen: Soft, Hypoactive Bowel Sounds, - - Mild tenderness to deep palpation right upper quadrant, no rebound, no guarding Extremities: No Calf Tenderness Psych/Mental Status: Normal Affect Microbiology Past 72 Hours 04/06/20 18:35 Stool C. difficile DNA Amplification - Final Laboratory Results 04/06/20 08:15: Crossmatch See Detail 04/06/20 08:17: WBC 15.6 H, RBC 4.34, Hgb 13.1, Hct 40.4, MCV 93.1, MCH 30.2, MCHC 32.4, RDW Std Deviation 47.8 H, RDW Coeff of Omid 14.1, Plt Count 482 H, MPV 9.4, Immature Gran % (Auto) 0.400, Neut % (Auto) 80.6 H, Lymph % (Auto) 10.6 L, Hale % (Auto) 7.8, Eos % (Auto) 0.3, Baso % (Auto) 0.3, Absolute Neuts (auto) 12.6 H, Absolute Lymphs (auto) 1.65, Nucleated RBC % 0 04/06/20 08:17: Sodium 136, Potassium 3.9, Chloride 103, Carbon Dioxide 28.0, Anion Gap 5, BUN 7, Creatinine 0.78, Estim Creat Clear Calc 71.28, Est GFR (MDRD) Af Amer 102, Est GFR (MDRD) Non-Af 85, BUN/Creatinine Ratio 9.0 L, Glucose 117 H, Calcium 9.2, Total Bilirubin 0.40, AST 16, ALT 21, Alkaline Phosphatase 85, Total Protein 7.8, Albumin 2.8 L, Globulin 5.0 H, Albumin/Globulin Ratio 0.6 L 04/06/20 08:17: Blood Type O NEGATIVE, Antibody Screen NEGATIVE 04/06/20 08:17: D-Dimer Quant (PE/DVT) 3.97 H* 04/06/20 08:17: Magnesium 2.1, Ferritin 140, Lactate Dehydrogenase 208, C-React Prot Ext Range 57.30 H 04/06/20 08:17: Procalcitonin 0.04 04/06/20 08:17: Crossmatch See Detail 04/06/20 09:05: Urine Color Yellow, Urine Clarity Clear, Urine pH 7.0, Ur Specific [place] 1.005, Urine Protein Negative, Urine Glucose (UA) Normal, Urine Ketones Negative, Urine Occult Blood Negative, Urine Nitrite Negative, Urine Bilirubin Negative, Urine Urobilinogen Normal, Ur Leukocyte Esterase Negative, Urine RBC 0 SEEN, Urine WBC 0 SEEN, Ur Squamous Epith Cells 0-5 SEEN, Urine Bacteria 0 SEEN, Urine Mucus 0 SEEN 04/06/20 13:47: Lactic Acid 0.6 04/06/20 14:59: Hgb 11.8 L, Hct 36.0 L 04/06/20 18:03: Hgb 11.3 L, Hct 35.9 L 04/06/20 21:49: POC Glucose 153 H 04/06/20 22:01: Hgb 10.3 L, Hct 32.3 L 04/06/20 23:59: Hgb 8.9 L, Hct 28.3 L 04/07/20 04:10: Sodium 140, Potassium 4.7, Chloride 113 H, Carbon Dioxide 23.0, Anion Gap 4 L, BUN 10, Creatinine 0.86, Estim Creat Clear Calc 64.65, Est GFR (MDRD) Af Amer 92, Est GFR (MDRD) Non-Af 76, BUN/Creatinine Ratio 11.7, Glucose 176 H, Calcium 6.9 L, Total Bilirubin 0.90, AST 12 L, ALT 13, Alkaline Phosphatase 51, Total Protein 5.2 L, Albumin 1.8 L, Globulin 3.4, Albumin/Globulin Ratio 0.5 L 04/07/20 04:10: Hgb 9.4 L, Hct 29.4 L 04/07/20 05:15: Lactic Acid 1.0 Current Medications Acetaminophen (Acetaminophen 325 Mg Tablet) 650 mg PO Q6H PRN PRN PRN Reason: Pain Score 1-10/Temp > 100.7 F Al Hydroxide/Mg Hydroxide (Mag Hydrox/Al Hydrox/Simeth 30 Ml Udc) 30 ml PO Q6H PRN PRN PRN Reason: Gastric Burning Albuterol Sulfate (Albuterol 2.5 Mg/3 Ml Vial.Neb.) 2.5 mg INHALATION Q4H PRN PRN Reason: SHORTNESS OF BREATH Amlodipine Besylate (Amlodipine 5 Mg Tablet) 5 mg PO DAILY [facility] Aspirin (Aspirin E.C. 81 Mg Tablet) 81 mg PO DAILY@0800 [facility] Guaifenesin (Guaifenesin 10 Ml Udc (200mg/10ml)) 20 ml PO Q4H PRN PRN PRN Reason: COUGH Hydralazine HCl (Hydralazine 20 Mg/Ml Vial) 10 mg IV Q4H PRN PRN PRN Reason: SBP > 160 Sodium Chloride () 1,000 mls @ 100 mls/hr IV .Q10H [facility] Last Admin: 11/11/20 02:06 Dose: Not Given Documented by: Piperacillin Sod/Tazobactam (Sod 3.375 gm/ Sodium Chloride) 50 mls @ 12.5 mls/hr IV Q8 [facility] Last Infusion: 04/07/20 02:37 Dose: Infused Documented by: Famotidine 20 mg/ Sodium (Chloride) 10 mls @ 300 mls/hr IV Q12 [facility] Last Infusion: 04/06/20 22:28 Dose: Infused Documented by: Sodium Chloride () 1,000 mls @ 200 mls/hr IV .Q5H [facility] Stop: 04/07/20 08:09 Last Infusion: 04/07/20 02:00 Dose: 200 mls/hr Documented by: Sodium Chloride () 500 mls @ 15 mls/hr IV PRN PRN PRN Reason: Blood Transfusion Last Infusion: 04/07/20 05:38 Dose: Infused Documented by: Levothyroxine Sodium (Levothyroxine 150 Mcg Tablet) 150 mcg PO DAILY@0600 [facility] Melatonin (Melatonin 3 Mg Tablet) 3 mg PO QHS PRN PRN PRN Reason: INSOMNIA Metoprolol Succinate (Metoprolol(Xl)Succ 50 Mg Tablet) [address] [facility] Morphine Sulfate (Morphine 2 Mg/Ml Syringe) 2 mg IV Q3H PRN PRN PRN Reason: Pain Score 6-10 Nitroglycerin (Nitroglycerin (Inpatient Use) 0.4 Mg Tab.Subl) 0.4 mg SUBLINGUAL Q5M PRN PRN Reason: CARDIAC/CHEST PAIN Ondansetron HCl (Ondansetron 4 Mg/2 Ml Vial) 4 mg IV Q8H PRN PRN PRN Reason: NAUSEA/VOMITING Last Admin: 04/07/20 03:35 Dose: 4 mg Documented by: Oxycodone HCl (Oxycodone 5 Mg Tablet) 5 mg PO Q4H PRN PRN PRN Reason: Pain Score 4-5 Prochlorperazine Edisylate (Prochlorperazine 10 Mg/2 Ml Vial) 5 mg IV Q4H PRN PRN PRN Reason: Breakthrough nausea/vomiting Sodium Chloride (0.9% Saline Lock 10 Ml Syringe) 10 - 40 ml IV UD PRN PRN Reason: SALINE FLUSH Last Admin: 04/07/20 04:16 Dose: 10 ml Documented by: Throat Lozenges (Benzocaine/Menthol 1 Lozenge) 1 lozenge MUCOUS MEM Q2H PRN PRN PRN Reason: SORE THROAT Medical Necessity - Tobacco Use Smoking Status: Never smoker Tobacco Use: Non-smoker Assessment/Plan All Active Problems (Last Reviewed 04/06/20 @ 14:08 by Zaria TEJADA, HELEN) Colitis (Acute) Rectal bleeding (Acute) Acute appendicitis (Resolved) COVID-19 (Resolved) The initial differential diagnosis was infectious colitis with associated GI bleed versus Covid related ischemic colitis with GI bleed versus C. difficile colitis. C. difficile has been excluded by negative stool analysis. The patient was given antiplatelet agents in the emergency room in the form of aspirin and received Lovenox subcutaneously upon admission. She had significant rectal bleeding last night requiring 2 unit of blood transfusion and transfer to the intensive care unit. It is of note that she is 2 weeks out from her ruptured appendicitis and was still requiring nasal prong oxygen at home at 2 L/min. Her admission CT demonstrated worsening bibasilar atelectasis. Her admission CT March 24 demonstrated an appendicolith and severe appendicitis with pericecal inflammatory changes. A gangrenous ruptured appendix was found at the time of surgery with significant malodor. There was no purulence at that time to send for culture. An additional potential diagnosis would be cecal malignancy with subsequent appendicitis. The patient however had a appendicolith and a normal base of the appendix adjacent to the cecum as well as no definitive cecal mass seen on the original CT making this less likely. Her BMI on her previous admission was 54. We did have significant difficulties in securing her to the operating room table to assure a safe procedure. I believe at this time anticoagulants should be withdrawn including ceasing her aspirin antiplatelet agent. Her D-dimer is elevated but this could easily be secondary to the degree of inflammatory change of her ascending colon. She is certainly at higher risk for multiple potential complications including progressive atelectasis pneumonia, DVT, PE, myriad of postoperative potential complications including bleeding and infection and anastomotic failure and wound infection and wound dehiscence and wound herniation. There is no guarantees that this procedure could be accomplished laparoscopically and even so it would require a significant ventral incision. The patient clinically has a benign abdomen with minimal discomfort. I will recheck a lactic acid level. Whether FFP should be given again has potential undesirable consequences. If her inflammatory colon problems are in part secondary to Covid related thrombosis then the FFP could actually worsen the condition. Of course the FFP would assist with reversal of her prescribed Lovenox. My plan at the moment is not to administer FFP. We will pursue lower extremity venous duplex imaging to assess for DVT. I believe we have significant evidence that the GI bleeding is emanating from the ascending colon. The appendix was secured with a laparoscopic stapler flush with the cecum. I cannot be assured that this area would not potentially leak if a colonoscopy was performed. The colonoscopy could potentially detect the presence of a malignancy but would not be therapeutic in treating the bleeding. Additionally this would most likely require bowel prepping the patient. I think at this moment in time that would be deleterious. My recommendations at this time are to aggressively treat the patient medically. I have vigorously encouraged the patient to use her IS, mobilize her legs do sequential venous compression devices, mobilize out of bed as soon as feasible. She likely will require additional blood transfusion. Obviously would continue to treat with IV antibiotics. Obviously will keep her n.p.o. and at bowel rest at this time. The patient is however aware that at any time the above recommendations may require alteration. She should stay in the intensive care unit at this time. Rk Pérez M.D., F.A.C.S.
[2020-04-07] MEDS: Lactated Ringers 1,000 ML 999 ML IV (06:35)
--- NOTE | 2020-04-07 06:47 | PN_ITS ---
Patient Problems: Active and Suspected Problems (Last Reviewed 04/06/20 @ 14:08 by Zaria TEJADA, PAJoseph) Colitis (Acute) Rectal bleeding (Acute) Subjective: Patient overnight with progressively worsening bright red blood per rectum and maroon-colored stools. Therapeutic Lovenox discontinued as well as aspirin. Patient noted ongoing right-sided abdominal cramping but no lightheadedness or dizziness despite hypotension. Patient did receive 2 units of PRBC with 2 additional on hold and was transitioned to the ICU. Patient had lessening of bright red blood through the early hours of the morning. Patient evaluated this morning by general surgery who feel that likely patient has a lower GI bleed that is improving given the change in color to less bright and given vital signs improving, hemoglobin stable with recent surgery planned continued close observation and potentially prepping however does carry risk of causing recurrent bleeding. Patient denies fevers, chills, nausea, emesis, chest pain or dyspnea. Objective: Physical Examination: General: awake, alert, oriented x 3 and cooperative, seated upright in the ICU bed, fatigued appearing, no acute distress, improved since initial transition to the ICU. Skin: More pale color, normal turgor, no icterus, no cyanosis, abdominal inci sions healing well. HEENT: AT/NC, EOMI, PERRLA, mildly dry MM. Lungs: CTA bilaterally, moderate effort, moderate decrease BL bases, no rales, ronchi or wheezing. Heart: Mildly tachycardic with regular rhythm; no gallop, rub audible. Abdomen: soft, morbidly obese, mild generalized discomfort with palpation, still primarily right-sided upper and lower quadrants, some discomfort epigastric region but not severe, no rebound or guarding, unable to discern distention, continued hyperactive bowel sounds. Neurological: Patient awake, alert, oriented as noted; cognitive function is baseline intact; pupils equally reactive to light and accomodation; cranial nerves II-XII grossly normal, moving all 4 extremities, no focal deficits, strength severely global decreased given recent events over the last 12 hours. Psychiatric: affect appears fatigued, no acute evidence of depressive or anxiety feelings. Vitals/I&O's: Vital Signs Temp Pulse Resp BP Pulse Ox 96.2 F L 89 24 H 86/48 L 100 04/07/20 04:12 04/07/20 06:01 04/07/20 06:00 04/07/20 06:00 04/07/20 06:00 Oxygen Flow Rate (L/min) 2 Oxygen Delivery Method Nasal Cannula Weight: 286 lb 9.615 oz Body Mass Index (BMI) 52.6 Orthostatic Vital Signs Start: 04/06/20 22:13 Freq: q24h Status: Active Protocol: Activity Type Activity Date Activity User E-Sign Co-Sign Detail Recorded Client Recorded Date Recorded By Document 04/06/20 22:13 [facility] [id number] 04/06/20 22:14 LALY 04/06/20 22:13 Orthostatic Vitals Sitting -Blood Pressure (mm Hg) 109/69 -Extremity Use Right Arm -Pulse Rate (beats/min) 92 Lying -Blood Pressure (mm Hg) 135/60 -Extremity Use Right Arm -Pulse Rate (beats/min) 81 Intake and Output for Last 24 Hours 04/05/20 04/06/20 04/07/20 23:59 23:59 23:59 Intake Total 1811.67 / 1811.67 3005.00 / 3005.00 Output Total 300 / 300 1400 / 1400 Balance 1511.67 / 1511.67 1605.00 / 1605.00 Microbiology Past 72 Hours 04/06/20 18:35 Stool C. difficile DNA Amplification - Final Laboratory Results 04/06/20 08:15: Crossmatch See Detail 04/06/20 08:17: WBC 15.6 H, RBC 4.34, Hgb 13.1, Hct 40.4, MCV 93.1, MCH 30.2, MCHC 32.4, RDW Std Deviation 47.8 H, RDW Coeff of Omid 14.1, Plt Count 482 H, MPV 9.4, Immature Gran % (Auto) 0.400, Neut % (Auto) 80.6 H, Lymph % (Auto) 10.6 L, [place] % (Auto) 7.8, Eos % (Auto) 0.3, Baso % (Auto) 0.3, Absolute Neuts (auto) 12.6 H, Absolute Lymphs (auto) 1.65, Nucleated RBC % 0 04/06/20 08:17: Sodium 136, Potassium 3.9, Chloride 103, Carbon Dioxide 28.0, Anion Gap 5, BUN 7, Creatinine 0.78, Estim Creat Clear Calc 71.28, Est GFR (MDRD) Af Amer 102, Est GFR (MDRD) Non-Af 85, BUN/Creatinine Ratio 9.0 L, Glucose 117 H, Calcium 9.2, Total Bilirubin 0.40, AST 16, ALT 21, Alkaline Phosphatase 85, Total Protein 7.8, Albumin 2.8 L, Globulin 5.0 H, Alb umin/Globulin Ratio 0.6 L 04/06/20 08:17: Blood Type O NEGATIVE, Antibody Screen NEGATIVE 04/06/20 08:17: D-Dimer Quant (PE/DVT) 3.97 H* 04/06/20 08:17: Magnesium 2.1, Ferritin 140, Lactate Dehydrogenase 208, C-React Prot Ext Range 57.30 H 04/06/20 08:17: Procalcitonin 0.04 04/06/20 08:17: Crossmatch See Detail 04/06/20 09:05: Urine Color Yellow, Urine Clarity Clear, Urine pH 7.0, Ur Specific [place] 1.005, Urine Protein Negative, Urine Glucose (UA) Normal, Urine Ketones Negative, Urine Occult Blood Negative, Urine Nitrite Negative, Urine Bilirubin Negative, Urine Urobilinogen Normal, Ur Leukocyte Esterase Negative, Urine RBC 0 SEEN, Urine WBC 0 SEEN, Ur Squamous Epith Cells 0-5 SEEN, Urine Bacteria 0 SEEN, Urine Mucus 0 SEEN 04/06/20 13:47: Lactic Acid 0.6 04/06/20 14:59: Hgb 11.8 L, Hct 36.0 L 04/06/20 18:03: Hgb 11.3 L, Hct 35.9 L 04/06/20 21:49: POC Glucose 153 H 04/06/20 22:01: Hgb 10.3 L, Hct 32.3 L 04/06/20 23:59: Hgb 8.9 L, Hct 28.3 L 04/07/20 04:10: Sodium 140, Potassium 4.7, Chloride 113 H, Carbon Dioxide 23.0, Anion Gap 4 L, BUN 10, Creatinine 0.86, Estim Creat Clear Calc 64.65, Est GFR (MDRD) Af Amer 92, Est GFR (MDRD) Non-Af 76, BUN/Creatinine Ratio 11.7, Glucose 176 H, Calcium 6.9 L, Total Bilirubin 0.90, AST 12 L, ALT 13, Alkaline Phosphatase 51, Total Protein 5.2 L, Albumin 1.8 L, Globulin 3.4, Albumin/Globulin Ratio 0.5 L 04/07/20 04:10: Hgb 9.4 L, Hct 29.4 L 04/07/20 05:15: Lactic Acid 1.0 Current Medications Acetaminophen (Acetaminophen 325 Mg Tablet) 650 mg PO Q6H PRN PRN PRN Reason: Pain Score 1-10/Temp > 100.7 F Al Hydroxide/Mg Hydroxide (Mag Hydrox/Al Hydrox/Simeth 30 Ml Udc) 30 ml PO Q6H PRN PRN PRN Reason: Gastric Burning Albuterol Sulfate (Albuterol 2.5 Mg/3 Ml Vial.Neb.) 2.5 mg INHALATION Q4H PRN PRN Reason: SHORTNESS OF BREATH Amlodipine Besylate (Amlodipine 5 Mg Tablet) 5 mg PO DAILY [facility] Guaifenesin (Guaifenesin 10 Ml Udc (200mg/10ml)) 20 ml PO Q4H PRN PRN PRN Reason: COUGH Piperacillin Sod/Tazobactam (Sod 3.375 gm/ Sodium Chloride) 50 mls @ 12.5 mls/hr IV Q8 [facility] Last Admin: 04/07/20 06:36 Dose: 12.5 mls/hr Documented by: Famotidine 20 mg/ Sodium (Chloride) 10 mls @ 300 mls/hr IV Q12 [facility] Last Infusion: 04/06/20 22:28 Dose: Infused Documented by: Sodium Chloride () 500 mls @ 15 mls/hr IV PRN PRN PRN Reason: Blood Transfusion Last Infusion: 04/07/20 05:38 Dose: Infused Documented by: Lactated Ringer's () 1,000 mls @ 999 mls/hr IV .Q1H1M [facility] Stop: 04/07/20 07:30 Last Admin: 04/07/20 06:35 Dose: 999 mls/hr Documented by: Levothyroxine Sodium (Levothyroxine 150 Mcg Tablet) 150 mcg PO DAILY@0600 [facility] Last Admin: 04/07/20 06:30 Dose: Not Given Documented by: Melatonin (Melatonin 3 Mg Tablet) 3 mg PO QHS PRN PRN PRN Reason: INSOMNIA Metoprolol Succinate (Metoprolol(Xl)Succ 50 Mg Tablet) 50 mg PO DAILY [facility] Morphine Sulfate (Morphine 2 Mg/Ml Syringe) 2 mg IV Q3H PRN PRN PRN Reason: Pain Score 6-10 Nitroglycerin (Nitroglycerin (Inpatient Use) 0.4 Mg Tab.Subl) 0.4 mg SUBLINGUAL Q5M PRN PRN Reason: CARDIAC/CHEST PAIN Ondansetron HCl (Ondansetron 4 Mg/2 Ml Vial) 4 mg IV Q8H PRN PRN PRN Reason: NAUSEA/VOMITING Last Admin: 04/07/20 03:35 Dose: 4 mg Documented by: Oxycodone HCl (Oxycodone 5 Mg Tablet) 5 mg PO Q4H PRN PRN PRN Reason: Pain Score 4-5 Prochlorperazine Edisylate (Prochlorperazine 10 Mg/2 Ml Vial) 5 mg IV Q4H PRN PRN PRN Reason: Breakthrough nausea/vomiting Sodium Chloride (0.9% Saline Lock 10 Ml Syringe) 10 - 40 ml IV UD PRN PRN Reason: SALINE FLUSH Last Admin: 04/07/20 04:16 Dose: 10 ml Documented by: Throat Lozenges (Benzocaine/Menthol 1 Lozenge) 1 lozenge MUCOUS MEM Q2H PRN PRN PRN Reason: SORE THROAT STROKE Vital Signs/Narrative: Vital Signs Temp Pulse Resp BP BP Pulse Ox 04/07/20 06:01 89 04/07/20 06:00 90 24 H 86/48 L 100 04/07/20 05:30 90 94/56 L 04/07/20 05:00 85 25 H 102/24 L 100 04/07/20 04:45 84 26 H 98/33 L 100 04/07/20 04:30 84 27 H 98/41 L 100 04/07/20 04:15 81 25 H 93/48 L 100 04/07/20 04:12 96.2 F L 83 21 H 104/53 L 100 04/07/20 04:00 96.2 F L 81 24 H 104/53 L 100 04/07/20 03:45 82 27 H 99/60 100 04/07/20 03:30 83 24 H 92/28 L 100 04/07/20 03:15 98 25 H 87/22 L 100 04/07/20 03:04 96.5 F L 88 17 89/58 L 100 04/07/20 03:00 83 21 H 87/22 L 100 04/07/20 02:49 96.7 F L 86 24 H 83/49 L 100 Medical Necessity - Tobacco Use Smoking Status: Never smoker Tobacco Use: Non-smoker Assessment/Plan All Active Problems (Last Reviewed 04/06/20 @ 14:08 by Zaria TEJADA, PA-C) Colitis (Acute) Rectal bleeding (Acute) Acute appendicitis (Resolved) COVID-19 (Resolved) The patient is a 44 y/o F w/ PMHx: GERD with peptic ulcer history, HTN, HLD, Obesity, recent COVID + 03/24/20 s/p symptom onset 03/14/2020 with fevers, mild cough with 03/24/2020 evaluation with at that time right sided abdominal pain with eventual appendectomy for gangrenous appendicitis to be perforated who now re-presents to the [facility] ED on 04/06/20 set of rectal bleeding with bowel movements, loose (3-4x daily x 48 hours) at 4 AM noted to be intermittent with at least 3-4 episodes but progressively worsening with nausea without emesis with ongoing right sided abdominal discomfort, moderate in severity well as periumbilical discomfort, described as cramping. 1. Acute descending colitis with resulting Acute GI bleed with Acute Blood Anemia with resulting Acute Hemorrhagic Shock complicated by recent appendicitis status post appendectomy: CT A/P w/ evidence of sigmoid colitis. Work-up in the ED included 7.9, heart 98, BP 126/71, respiratory rate 14, 90% on 2 L nasal cannula with noted 97% on room air, seated with WBC 15.6, hemoglobin 13.1, platelet 42 with left shift, CMP with glucose 117 otherwise not marked appearing, this is unremarkable, CT abdomen and pelvis with evidence recent status post appendectomy with postsurgical changes right lower quadrant with inhomogenous appearance of the cecum with findings suggestive of submucosal pneumatosis with evidence of colitis involving the descending colon up to the region of the hepatic flexure with evidence of mesenteric adenopathy in the right lower quadrant. Patient initially admitted to the medical surgical floor, Covid panel labs with significantly elevated dimer although likely in large part secondary to patient recent operative interventions and inflammation, given recent CT abdomen and pelvis unable to perform CT PA therefore transiently place d on Lovenox and aspirin was administered in the ED given some concern for ischemia as possible etiology given recent Covid status. Patient overnight with increased bleeding, hypotension with transition to the ICU. Hemoglobin trending with 04/06/2020 admission 13.1 -> 11.8 -> 11.3 -> 10.3 -> 8.9 -> 9.4 -> now most recent 7.8 following again 2 unit PRBC administration. Lovenox and aspirin discontinued immediately with onset of worsening presentation. [employer] and general surgery following. Per discussion with general surgery possible plans for prep but patient high risk for perforation for lower scope and prepping may lead to recurrent worsen bleeding. We will continue to closely monitor. NPO status, maintained on IV protonix. 2. Recent Acute Viral Syndrome, COVID-19: Patient prior to recent admission OR with testing positive at that time mild symptoms starting 03/14/2020 with fever as well as cough, resolved. Upon ED presentation with acute presentation general surgery noted concern for possible presentation associate with Covid status, obtained Covid panel including D-dimer, procalcitonin, CRP, CPK, Ferritin, LDH cautious with noted ferritin 140, LDH 208, CRP 57.3, pro calcitonin 0.04, D-dimer 3.97 as well as lactic acid given abdominal complaints and atypical presentation noted to be 0.6. Initially placed on therapeutic Lovenox however discontinued secondary to onset of GI bleeding is noted #1. Following stability patient underwent CTPA 04/07/2020 a.m. with no obvious pulmonary emboli noted and expected post Covid changes. 3. Recent acute ruptured gangrenous appendicitis: Patient completed antibiotic Augmentin therapy initially IV inpatient status post with laparoscopic appendectomy with drainage, general surgery consulted and following currently. Patient currently as noted #1 maintained on IV Zosyn. 4. Hypertension: Holding home regimen given acute hemorrhagic shock, blood pressure is improving given recent PRBC administration and fluids. Add back once appropriate. 5. Hypothyroidism: Continue home synthroid regimen. 6. Morbid Obesity: Weight loss and lifestyle changes encouraged. 7. GERD with history of peptic ulcer disease: Given GI bleed transition to IV Protonix. 8. DVT prophylaxis: SCDs, discontinue therapeutic Lovenox given worsened status as noted #1. 9. Code status: Full Code status. Inpatient E&M: 67317 Subs Hosp L3
--- NOTE | 2020-04-07 07:58 | PCM.CON.CC ---
Problem List (1) Rectal bleeding Status: Acute (2) Morbid obesity Status: Chronic (3) Hypothyroidism Status: Chronic Qualifiers: Hypothyroidism type: unspecified Qualified Code(s): E03.9 - Hypothyroidism, unspecified (4) COVID-19 Status: Resolved (5) Obesity (BMI 30.0-34.9) Status: Chronic (6) Nonrheumatic mitral (valve) insufficiency Status: Chronic (7) Hyperlipidemia Status: Chronic Qualifiers: Hyperlipidemia type: unspecified Qualified Code(s): E78.5 - Hyperlipidemia, unspecified (8) Hypertension Status: Chronic Qualifiers: Hypertension type: essential hypertension Qualified Code(s): I10 - Essential (primary) hypertension Reason for Consult Date of Consultation: 04/07/20 Reason for Consultation: GI bleed History of Present Illness: The patient is a 44 year old F, with past medical history listed below and known to me from recent hospitalization, who presented to [facility] on 04/06/2020 secondary to intermittent right abdominal pain for a week or so with a presyncopal episode. Patient reportedly started to have nausea and feeling weak approximately 24 hours prior to presentation. Patient states that she developed GI bleeding earlier in the morning. Patient had had some nausea, but no vomiting. Patient reportedly has never had a colonoscopy and has no history of peptic ulcer disease. Patient was recently seen here for a perforated gangrenous appendicitis with concomitant COVID-19. Patient has been on 2 L nasal cannula since that time and this did not significantly change. Patient has been on a baby aspirin, but not full anticoagulation prior to presentation. Patient states that she has not had any fevers or cough following discharge. In the ER, patient was normotensive at 126/71 with a pulse of 98. Patient was complaining of mild right upper quadrant versus epigastric tenderness, but was not guarding. Patient had a leukocytosis of 15.6 with hemoglobin of 13.1 on laboratory investigation. Chemistries were relatively unremarkable, along with liver function. Patient's UA was also negative. Patient did have a CT of the abdomen showing postsurgical changes in the right lower quadrant with possible cecal changes and colitis with mesenteric adenopathy. Patient was relatively hemodynamically stable in the ER and case was discussed with Dr. Pérez. There was some concern for COVID-19 complications such as microthrombi or infection. Patient was given IV antibiotics and antiplatelet therapy. Patient was admitted to the general medical floor. Given concerns for for possible COVID-19 complications, patient was given full anticoagulation and antibiotics were continued. However, overnight rapid response was called. Patient was sitting in the bathroom and unresponsive noting to have bright red blood per rectum. Patient was initiated on normal saline and transferred to the intensive care unit for further evaluation. Orthostatic blood pressures were positive at that time. Review of systems otherwise negative from a constitutional, HEENT, respiratory, cardiovascular, GI, genitourinary, musculoskeletal, skin, neurologic, psychiatric and hematologic system unless stated above. Past Medical History Past Medical History (Chronic Problems): Chronic Problems (Last Reviewed 04/06/20 @ 14:08 by Zaria TEJADA PA-C) Morbid obesity (Chronic) Hypothyroidism (Chronic) Obesity (BMI 30.0-34.9) (Chronic) Nonrheumatic mitral (valve) insufficiency (Chronic) Hyperlipidemia (Chronic) Paroxysmal ventricular tachycardia (Chronic) Hypertension (Chronic) Medical History: Medical History (Last Reviewed 04/06/20 @ 14:08 by Zaria TEJADA PA-C) Obesity (BMI 30.0-34.9) (Chronic) E66.9 Nonrheumatic mitral (valve) insufficiency (Chronic) I34.0 Hyperlipidemia (Chronic) E78.5 Paroxysmal ventricular tachycardia (Chronic) I47.2 Hypertension (Chronic) I10 Hiatal hernia K44.9 Hypothyroidism E03.9 Allergies No Known Allergies Allergy (Verified 04/06/20 07:53) Home Medications: Ambulatory Orders Medication Instructions Recorded amlodipine 5 mg tablet 5 mg PO DAILY 07/17/17 Aspirin [Aspirin EC] 81 mg PO DAILY@0800 03/24/20 Ibuprofen 800 mg PO DAILY PRN PRN 03/24/20 Levothyroxine Sodium [Synthroid] 150 mcg PO DAILY 03/24/20 Metoprolol(XL)Succ [Toprol Xl 50 mg PO DAILY 03/24/20 (Beta Mady)] Acetaminophen Liquid [Tylenol 650 mg PO Q6H PRN PRN c 03/27/20 Liquid] Surgical History: appendectomy, - - Hiatal hernia repair. 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 Paternal Family History: Family History (Last Reviewed 04/06/20 @ 14:08 by Zaria TEJADA PA-C) Father Heart disease Sister Hypertension History Items: Heart Disease Review of Systems Comment: See HPI Patient Problems: Active and Suspected Problems (Last Reviewed 04/06/20 @ 14:08 by Zaria TEJADA PA-C) Colitis (Acute) Rectal bleeding (Acute) - Physical Exam Vitals/I&O's: Vital Signs Temp Pulse Resp BP Pulse Ox 35.7 C L 88 20 H 110/37 L 100 04/07/20 04:12 04/07/20 07:00 04/07/20 07:00 04/07/20 07:00 04/07/20 07:00 Oxygen Flow Rate (L/min) 2 Oxygen Delivery Method Nasal Cannula Weight: 130 kg Body Mass Index (BMI) 52.6 Orthostatic Vital Signs Start: 04/06/20 22:13 Freq: q24h Status: Active Protocol: Activity Type Activity Date Activity User E-Sign Co-Sign Detail Recorded Client Recorded Date Recorded By Document 04/06/20 22:13 [facility] [id number] 04/06/20 22:14 LALY 04/06/20 22:13 Orthostatic Vitals Sitting -Blood Pressure 109/69 -Extremity Use Right Arm -Pulse Rate 92 Lying -Blood Pressure 135/60 -Extremity Use Right Arm -Pulse Rate 81 Intake and Output for Last 24 Hours 04/05/20 04/06/20 04/07/20 23:59 23:59 23:59 Intake Total 1811.67 / 1811.67 4005.00 / 4005.00 Output Total 300 / 300 1400 / 1400 Balance 1511.67 / 1511.67 2605.00 / 2605.00 General: Alert, Oriented x3, Cooperative, No apparent distress, - - Appears pale. Morbidly obese. HEENT: Atraumatic, PERRLA, EOMI, Normocephalic, - - No scleral icterus or injection noted Oral: Moist Mucosa, No Gingival or Mucosal Lesions/ Ulcerations Neck: Supple, No JVD, No Nodes, Trachea Midline Lungs: Clear to auscultation, Normal air movement, No rhonchi, No wheeze, No rales Cardiovascular: Regular rate, Regular Rhythm, Normal S1, Normal S2, No murmurs, No rub noted, No Gallop Abdomen: Bowel Sounds Present, Soft, Non-Distended, Tender - Right upper quadrant and epigastric area. No pain to palpation in the right lower quadrant Extremities: No clubbing, No cyanosis, Edema - Trace to 1+ Skin: No rashes, No breakdown Musculoskeletal: No Tenderness to Palpation of Joints or Extremities Lymphatic: No Cervical, Supraclavicular, or Inguinal Adenopathy Neurological: Cranial nerves II-XII grossly intact, Neuro grossly intact, Motor Exam 5/5 strength throughout Psych/Mental Status: Alert and oriented to time, place, person, mood and affect Microbiology Past 72 Hours 04/06/20 18:35 Stool C. difficile DNA Amplification - Final Laboratory Results 04/06/20 08:15: Crossmatch See Detail 04/06/20 08:17: WBC 15.6 H, RBC 4.34, Hgb 13.1, Hct 40.4, MCV 93.1, MCH 30.2, MCHC 32.4, RDW Std Deviation 47.8 H, RDW Coeff of Omid 14.1, Plt Count 482 H, MPV 9.4, Immature Gran % (Auto) 0.400, Neut % (Auto) 80.6 H, Lymph % (Auto) 10.6 L, [place] % (Auto) 7.8, Eos % (Auto) 0.3, Baso % (Auto) 0.3, Absolute Neuts (auto) 12.6 H, Absolute Lymphs (auto) 1.65, Nucleated RBC % 0 04/06/20 08:17: Sodium 136, Potassium 3.9, Chloride 103, Carbon Dioxide 28.0, Anion Gap 5, BUN 7, Creatinine 0.78, Estim Creat Clear Calc 71.28, Est GFR (MDRD) Af Amer 102, Est GFR (MDRD) Non-Af 85, BUN/Creatinine Ratio 9.0 L, Glucose 117 H, Calcium 9.2, Total Bilirubin 0.40, AST 16, ALT 21, Alkaline Phosphatase 85, Total Protein 7.8, Albumin 2.8 L, Globulin 5.0 H, Albumin/Globulin Ratio 0.6 L 04/06/20 08:17: Blood Type O NEGATIVE, Antibody Screen NEGATIVE 04/06/20 08:17: D-Dimer Quant (PE/DVT) 3.97 H* 04/06/20 08:17: Magnesium 2.1, Ferritin 140, Lactate Dehydrogenase 208, C-React Prot Ext Range 57.30 H 04/06/20 08:17: Procalcitonin 0.04 04/06/20 08:17: Crossmatch See Detail 04/06/20 09:05: Urine Color Yellow, Urine Clarity Clear, Urine pH 7.0, Ur Specific [place] 1.005, Urine Protein Negative, Urine Glucose (UA) Normal, Urine Ketones Negative, Urine Occult Blood Negative, Urine Nitrite Negative, Urine Bilirubin Negative, Urine Urobilinogen Normal, Ur Leukocyte Esterase Negative, Urine RBC 0 SEEN, Urine WBC 0 SEEN, Ur Squamous Epith Cells 0-5 SEEN, Urine Bacteria 0 SEEN, Urine Mucus 0 SEEN 04/06/20 13:47: Lactic Acid 0.6 04/06/20 14:59: Hgb 11.8 L, Hct 36.0 L 04/06/20 18:03: Hgb 11.3 L, Hct 35.9 L 04/06/20 21:49: POC Glucose 153 H 04/06/20 22:01: Hgb 10.3 L, Hct 32.3 L 04/06/20 23:59: Hgb 8.9 L, Hct 28.3 L 04/07/20 04:10: Sodium 140, Potassium 4.7, Chloride 113 H, Carbon Dioxide 23.0, Anion Gap 4 L, BUN 10, Creatinine 0.86, Estim Creat Clear Calc 64.65, Est GFR (MDRD) Af Amer 92, Est GFR (MDRD) Non-Af 76, BUN/Creatinine Ratio 11.7, Glucose 176 H, Calcium 6.9 L, Total Bilirubin 0.90, AST 12 L, ALT 13, Alkaline Phosphatase 51, Total Protein 5.2 L, Albumin 1.8 L, Globulin 3.4, Albumin/Globulin Ratio 0.5 L 04/07/20 04:10: Hgb 9.4 L, Hct 29.4 L 04/07/20 05:15: Lactic Acid 1.0 Current Medications Acetaminophen (Acetaminophen 325 Mg Tablet) 650 mg PO Q6H PRN PRN PRN Reason: Pain Score 1-10/Temp > 100.7 F Al Hydroxide/Mg Hydroxide (Mag Hydrox/Al Hydrox/Simeth 30 Ml Udc) 30 ml PO Q6H PRN PRN PRN Reason: Gastric Burning Albuterol Sulfate (Albuterol 2.5 Mg/3 Ml Vial.Neb.) 2.5 mg INHALATION Q4H PRN PRN Reason: SHORTNESS OF BREATH Amlodipine Besylate (Amlodipine 5 Mg Tablet) 5 mg PO DAILY [facility] Guaifenesin (Guaifenesin 10 Ml Udc (200mg/10ml)) 20 ml PO Q4H PRN PRN PRN Reason: COUGH Piperacillin Sod/Tazobactam (Sod 3.375 gm/ Sodium Chloride) 50 mls @ 12.5 mls/hr IV Q8 [facility] Last Admin: 04/07/20 06:36 Dose: 12.5 mls/hr Documented by: Famotidine 20 mg/ Sodium (Chloride) 10 mls @ 300 mls/hr IV Q12 [facility] Last Infusion: 04/06/20 22:28 Dose: Infused Documented by: Sodium Chloride () 500 mls @ 15 mls/hr IV PRN PRN PRN Reason: Blood Transfusion Last Infusion: 04/07/20 05:38 Dose: Infused Documented by: Levothyroxine Sodium (Levothyroxine 150 Mcg Tablet) 150 mcg PO DAILY@0600 [facility] Last Admin: 04/07/20 06:30 Dose: Not Given Documented by: Melatonin (Melatonin 3 Mg Tablet) 3 mg PO QHS PRN PRN PRN Reason: INSOMNIA Metoprolol Succinate (Metoprolol(Xl)Succ 50 Mg Tablet) 50 mg PO DAILY [facility] Morphine Sulfate (Morphine 2 Mg/Ml Syringe) 2 mg IV Q3H PRN PRN PRN Reason: Pain Score 6-10 Nitroglycerin (Nitroglycerin (Inpatient Use) 0.4 Mg Tab.Subl) 0.4 mg SUBLINGUAL Q5M PRN PRN Reason: CARDIAC/CHEST PAIN Ondansetron HCl (Ondansetron 4 Mg/2 Ml Vial) 4 mg IV Q8H PRN PRN PRN Reason: NAUSEA/VOMITING Last Admin: 04/07/20 03:35 Dose: 4 mg Documented by: Oxycodone HCl (Oxycodone 5 Mg Tablet) 5 mg PO Q4H PRN PRN PRN Reason: Pain Score 4-5 Prochlorperazine Edisylate (Prochlorperazine 10 Mg/2 Ml Vial) 5 mg IV Q4H PRN PRN PRN Reason: Breakthrough nausea/vomiting Sodium Chloride (0.9% Saline Lock 10 Ml Syringe) 10 - 40 ml IV UD PRN PRN Reason: SALINE FLUSH Last Admin: 04/07/20 04:16 Dose: 10 ml Documented by: Throat Lozenges (Benzocaine/Menthol 1 Lozenge) 1 lozenge MUCOUS MEM Q2H PRN PRN PRN Reason: SORE THROAT Clinical Impression(s) from Imaging Studies Abdomen/Pelvis CT 04/06/20 08:12 IMPRESSION: The patient is status post appendectomy with postsurgical changes in the right lower quadrant. Inhomogeneous appearance of the cecum with findings suggestive of submucosal pneumatosis. There is evidence of colitis involving the descending colon up to the region of the hepatic flexure. There is evidence of mesenteric adenopathy in the right lower quadrant. Electronically Signed: Ward Crouch, at 9:57 EST , Service support , Assessment/Plan Active and Suspected Problems (Last Reviewed 04/06/20 @ 14:08 by Zaria TEJADA PA-C) Colitis (Acute) Rectal bleeding (Acute) RECOMMENDATIONS: 1. Monitor H&H every 6 with transfusions as needed to keep hemoglobin greater than 8 2. Discontinue anticoagulation 3. Possibly obtain a bleeding scan, but defer surgery 4. Fluid boluses as necessary for hypotension IMPRESSIONS: 1. Hemorrhagic shock secondary to acute blood loss anemia secondary to probable GI bleed Exact source of bleeding is unclear at this time. Patient reportedly has had hematochezia suggestive of a lower GI bleed, but physical exam is suggestive of an upper GI source with right upper quadrant and epigastric pain. Patient was given anticoagulation, which may exacerbate the acute condition. Unclear significance of elevated CRP and D-dimer given patient recently had Covid pneumonia and emergency appendectomy. Continue to monitor H&H every 6 until stable. Transfuse to keep hemoglobin greater than 8. Patient's procalcitonin is low suggesting nonbacterial source of inflammation. Could consider transitioning to Protonix until exact source is clear. 2. Acute descending colitis Patient with recent surgery of the appendix with concomitant Covid positive status. Patient is currently hypotensive and C. difficile was negative. Continue with empiric antibiotics. Defer to surgery on visualization for potential source. Will attempt volume resuscitation prior to initiation of pressor therapy 3. Hypertension/recent ruptured appendicitis/hypothyroidism/morbid obesity Complicates care, management, recovery and prognosis. Hold baseline antihypertensives. Okay to continue Synthroid. Inpatient E&M: 12574 Init Hosp L3
[2020-04-07 10:53] LABS: Hemoglobin 7.8 g/dL (12.0-15.0)
--- NOTE | 2020-04-07 14:48 | CASEMGMT ---
Readmission chart review: Pt was initially admitted 03/24-03/27/2020 with acute appendicitis/COVID and was sent home on 2liters continuous at discharge. Pt did have f/u with PCP and surgeon virtually after discharge. Pt returned to [facility] ED on 04/06/2020 for rectal bleeding and weakness from same and was admitted to [facility] at that time. 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 Pt was then transferred to the ICU at that time. Therapeutic lovenox and aspirin were discontinued. General surgery is following. Pt is currently on room air at rest at this time and bleeding has lessened. CM to follow for any further discharge planning/needs. SStyvette ALEXANDRE CM
[2020-04-07 17:25] LABS: Absolute Lymphocyte Count 1.46 X10^3/uL (0.83-4.51); Absolute Neutrophil Count 6.2 X10^3/uL (2.0-7.7); Basophil# 0.03 X10^3/uL; Basophil% 0.3 % (0-1); Eosinophil# 0.02 X10^3/uL; Eosinophils% 0.2 % (0-5); Hematocrit 24.7 % (37-47); Hemoglobin 8.2 g/dL (12.0-15.0); Lymphocyte # 1.46 X10^3/ul (4.0); Mean Corp Hgb Conc 33.2 g/dL (32-36); Mean Corpuscular Hgb 29.9 pg (27.0-32.0); Mean Corpuscular Volume 90.1 fL (81-99); Mean Platelet Vol. 10.2 fl (6.2-12.0); Monocyte# 0.88 X10^3/uL; Monocyte% 10.3 % (0-10); NRBC Flagged by Analyzer 0 % (0-5); Neutrophil # 6.15 X10^3/uL (2.7-7.7); Neutrophil % 71.7 % (47-70); Platelet Count 249 K/mm3 (150-450); RBC Distribution Width CV 16.3 % (11.6-14.6); RBC Distribution Width SD 52.9 fl (35.1-43.9); Red Blood Count 2.74 M/mm3 (4.2-5.4); White Blood Count 8.6 K/mm3 (4.4-11.0)
[2020-04-07] MEDS: Electrolyte Solution/Peg's 4000 ML PO (17:30)
--- NOTE | 2020-04-07 20:14 | NURSING ---
pt had a large liquid maroon stool
[2020-04-07 22:27] LABS: Hematocrit 32.9 % (37-47); Hemoglobin 10.7 g/dL (12.0-15.0)
--- NOTE | 2020-04-07 23:11 | NURSING ---
Pt placed on bedpan. pt had a large dark red liquid stool. pt cleaned up and repostion in bed
--- NOTE | 2020-04-07 23:24 | NURSING ---
pt up several times to bsc. liquid stool noted. color looks like bedadine
[2020-04-08] VITALS (33 sets, daily range): BP systolic 106–156; BP diastolic 52–89; PULSE 73–97; RESP 16–25; TEMP 35.7–37; O2SAT 93–100; BMI 53.4
--- NOTE | 2020-04-08 | IMM_PTH ---
PATIENT: ZAID HOLMAN LOC: [facility] U#:[id number] AGE/SX: 44/F ROOM: [facility] RE04/06/[address]: Dr. Monique Cevallos MD : 1975 BED: 1 DIS: 04/10/2020 SPEC #: [id number] RECD: 04/12/20 12:41 STATUS: SOUWalter REQ #: [id number] AMANDA: 04/08/20 00:[address]: Rk Pérez DEPT: IMMUNOHISTOCHEMISTRY RECD BY: Mariola Toney ENTERED: 04/12/20 12:43 SP TYPE: IMMUNO OTHR DR: MD Dr. Steve Wilkinson MD Dr. Laura Barr, MD Tissues: A - Ileum, NOS Procedures: CD138 (add) CD20 (add) CD3 (add) CD43 (add) CD45 (add) CD5 (add) CD79A (add) KI-67 (add) Pankeratin (initial) PHYSICIAN & [address] [address] SPECIMEN INFORMATION: Tissue Source: A - Ileocecal valve biopsy Clinical Info: Rectal bleeding Specimen Number: [id number] CPT code: 32002, 44988 x8 METHODOLOGY: Deparaffinized sections of prefer/formalin-fixed tissue or PAP/DQ stained slides are incubated with monoclonal/polyclonal antibodies/oligonucleotide probes. Localization is made via biotin free immunoperoxidase method. Appropriate controls are performed and reacted as expected. Results on target cell population are indicated in the following table: RESULTS: ANTIBODY / CLONE RESULT Block A AE1-3 (AE1/AE3/PCK26) negative CD3 (PS1) positive CD5 (SP10) positive CD20 (L26) positive CD43 (L60) positive CD45 (RP2/18) positive CD79a (11E3) positive CD138 (B-A38) negative Ki-67 (30-9) positive, low These tests were developed and their performance characteristics determined by [facility]. They may not have been cleared or approved by the U.S. Food and Drug Administration. The FDA has determined that such clearance or approval is not necessary. The above immunohistochemical/dualISH markers are ordered and reviewed by the Pathologist. INTERPRETATION: A. Ileocecal valve, biopsy: Polytypic (benign) lymphoid tissue. AM:consuelo 04/13/20
[2020-04-08 04:27] LABS: Hematocrit 26.3 % (37-47); Hemoglobin 8.8 g/dL (12.0-15.0); Mean Corp Hgb Conc 33.5 g/dL (32-36); Mean Corpuscular Hgb 29.9 pg (27.0-32.0); Mean Corpuscular Volume 89.5 fL (81-99); Mean Platelet Vol. 9.7 fl (6.2-12.0); Platelet Count 306 K/mm3 (150-450); RBC Distribution Width CV 16.1 % (11.6-14.6); RBC Distribution Width SD 52.6 fl (35.1-43.9); Red Blood Count 2.94 M/mm3 (4.2-5.4)
[2020-04-08 04:41] LABS: Anion Gap 4 (5-15); BUN 5 mg/dL (7-18); BUN/Creat Ratio 8.2 RATIO (10-20); Calcium,Total 7.5 mg/dL (8.5-10.1); Chloride 112 mmol/L (98-107); Creatinine, Serum 0.61 mg/dL (0.55-1.02); EST Glomerular Filtration Rate 111 mL/min (>60); Est Glom Filt Rate - Afr Amer 135 mL/min (>60); Estimated Creatinine Clearance 91.14 ml/min; Glucose 112 mg/dL (74-106); Potassium 3.4 mmol/L (3.5-5.1); Sodium Level 143 mmol/L (136-145)
[2020-04-08] MEDS: Levothyroxine 150 MCG Tablet PO (05:32)
--- NOTE | 2020-04-08 05:35 | PCM.PN.SRG ---
Patient Problems: Active and Suspected Problems (Last Reviewed 04/06/20 @ 14:08 by Zarai TEJADA PA-C) Colitis (Acute) Rectal bleeding (Acute) Subjective: Patient did not move her bowels from 5:30 AM yesterday to approximately 5:30 PM. Yesterday evening a bowel prep was initiated for hopeful colonoscopy. Since that time the patient has had copious amounts of blood in stool output. I am currently instructed that the coverage at this point is a Betadine-like color. The patient denies abdominal pain. Her white blood cell count has normalized. She is received a total of 4 units of packed red cells. Hemoglobin and hematocrit remain marginal. - Physical Exam Vitals/I&O's: Vital Signs Temp Pulse Resp BP Pulse Ox 97.9 F 78 18 119/60 95 04/08/20 04:00 04/08/20 05:00 04/08/20 05:00 04/08/20 05:00 04/08/20 05:00 Oxygen Flow Rate (L/min) 2 Oxygen Delivery Method Room Air Weight: 292 lb 5.327 oz Body Mass Index (BMI) 52.6 Orthostatic Vital Signs Start: 04/06/20 22:13 Freq: q24h Status: Active Protocol: Activity Type Activity Date Activity User E-Sign Co-Sign Detail Recorded Client Recorded Date Recorded By Document 04/06/20 22:13 Diane [id number] 04/06/20 22:14 LALY 04/06/20 22:13 Orthostatic Vitals Sitting -Blood Pressure (mm Hg) 109/69 -Extremity Use Right Arm -Pulse Rate (beats/min) 92 Lying -Blood Pressure (mm Hg) 135/60 -Extremity Use Right Arm -Pulse Rate (beats/min) 81 Intake and Output for Last 24 Hours 04/06/20 04/07/20 04/08/20 23:59 23:59 23:59 Intake Total 1811.67 / 1811.67 7525.00 / 7525.00 50 / 50 Output Total 300 / 300 2300 / 2300 Balance 1511.67 / 1511.67 5225.00 / 5225.00 50 / 50 Abdomen: Bowel Sounds Present, Soft, Non Tender Microbiology Past 72 Hours 04/06/20 18:35 Stool Enteric Bacteriology - Final 04/06/20 18:35 Stool C. difficile DNA Amplification - Final Laboratory Results 04/06/20 08:17: Crossmatch See Detail 04/07/20 05:15: Lactic Acid 1.0 04/07/20 10:30: Hgb 7.8 L, Hct 24.0 L 04/07/20 16:55: WBC 8.6, RBC 2.74 L, Hgb 8.2 L, Hct 24.7 L, MCV 90.1, MCH 29.9, MCHC 33.2, RDW Std Deviation 52.9 H, RDW Coeff of Omid 16.3 H, Plt Count 249, MPV 10.2, Immature Gran % (Auto) 0.500, Neut % (Auto) 71.7 H, Lymph % (Auto) 17.0 L, [place] % (Auto) 10.3 H, Eos % (Auto) 0.2, Baso % (Auto) 0.3, Absolute Neuts (auto) 6.2, Absolute Lymphs (auto) 1.46, Nucleated RBC % 0 04/07/20 16:55: Hgb Cancelled, Hct Cancelled 04/07/20 21:51: Hgb Cancelled, Hct Cancelled 04/07/20 22:10: Hgb 10.7 L, Hct 32.9 L 04/08/20 04:20: Sodium 143, Potassium 3.4 L, Chloride 112 H, Carbon Dioxide 27.0, Anion Gap 4 L, BUN 5 L, Creatinine 0.61, Estim Creat Clear Calc 91.14, Est GFR (MDRD) Af Amer 135, Est GFR (MDRD) Non-Af 111, BUN/Creatinine Ratio 8.2 L, Glucose 112 H, Calcium 7.5 L 04/08/20 04:20: WBC 10.0, RBC 2.94 L, Hgb 8.8 L, Hct 26.3 L, MCV 89.5, MCH 29.9, MCHC 33.5, RDW Std Deviation 52.6 H, RDW Coeff of Omid 16.1 H, Plt Count 306, MPV 9.7 Current Medications Acetaminophen (Acetaminophen 325 Mg Tablet) 650 mg PO Q6H PRN PRN PRN Reason: Pain Score 1-10/Temp > 100.7 F Al Hydroxide/Mg Hydroxide (Mag Hydrox/Al Hydrox/Simeth 30 Ml Udc) 30 ml PO Q6H PRN PRN PRN Reason: Gastric Burning Albuterol Sulfate (Albuterol 2.5 Mg/3 Ml Vial.Neb.) 2.5 mg INHALATION Q4H PRN PRN Reason: SHORTNESS OF BREATH Guaifenesin (Guaifenesin 10 Ml Udc (200mg/10ml)) 20 ml PO Q4H PRN PRN PRN Reason: COUGH Piperacillin Sod/Tazobactam (Sod 3.375 gm/ Sodium Chloride) 50 mls @ 12.5 mls/hr IV Q8 [facility] Last Admin: 04/08/20 05:32 Dose: 12.5 mls/hr Documented by: Sodium Chloride () 500 mls @ 15 mls/hr IV PRN PRN PRN Reason: Blood Transfusion Last Infusion: 04/07/20 05:38 Dose: Infused Documented by: Pantoprazole Sodium 40 mg/ (Sodium Chloride) 110 mls @ 330 mls/hr IV Q12 [facility] Last Infusion: 04/07/20 20:35 Dose: Infused Documented by: Levothyroxine Sodium (Levothyroxine 150 Mcg Tablet) 150 mcg PO DAILY@0600 [facility] Last Admin: 04/08/20 05:32 Dose: 150 mcg Documented by: Melatonin (Melatonin 3 Mg Tablet) 3 mg PO QHS PRN PRN PRN Reason: INSOMNIA Morphine Sulfate (Morphine 2 Mg/Ml Syringe) 2 mg IV Q3H PRN PRN PRN Reason: Pain Score 6-10 Nitroglycerin (Nitroglycerin (Inpatient Use) 0.4 Mg Tab.Subl) 0.4 mg SUBLINGUAL Q5M PRN PRN Reason: CARDIAC/CHEST PAIN Ondansetron HCl (Ondansetron 4 Mg/2 Ml Vial) 4 mg IV Q8H PRN PRN PRN Reason: NAUSEA/VOMITING Last Admin: 04/07/20 20:19 Dose: 4 mg Documented by: Oxycodone HCl (Oxycodone 5 Mg Tablet) 5 mg PO Q4H PRN PRN PRN Reason: Pain Score 4-5 Prochlorperazine Edisylate (Prochlorperazine 10 Mg/2 Ml Vial) 5 mg IV Q4H PRN PRN PRN Reason: Breakthrough nausea/vomiting Sodium Chloride (0.9% Saline Lock 10 Ml Syringe) 10 - 40 ml IV UD PRN PRN Reason: SALINE FLUSH Last Admin: 04/07/20 21:03 Dose: 10 ml Documented by: Throat Lozenges (Benzocaine/Menthol 1 Lozenge) 1 lozenge MUCOUS MEM Q2H PRN PRN PRN Reason: SORE THROAT Medical Necessity - Tobacco Use Smoking Status: Never smoker Tobacco Use: Non-smoker Assessment/Plan All Active Problems (Last Reviewed 04/06/20 @ 14:08 by Zaria TEJADA, PANamC) Colitis (Acute) Rectal bleeding (Acute) Acute appendicitis (Resolved) COVID-19 (Resolved) Ongoing rectal bleeding. Ongoing unstable hemoglobin hematocrit. Not clear whether the bowel prep has aggravated the situation or simply clearing out stagnant blood. Plan for colonoscopy. I have instructed the patient on potential findings and that it is highly unlikely that colonoscopic therapy will be possible to control any hemorrhage. I have discussed with her potential need for a right colectomy. She is aware of the technique, benefit, risk, alternatives. She is aware that C. difficile was negative and that there are indications that she may not have been infectious colitis. That would then lead to concern that she possibly has a Covid related ischemic colitis. The unknowns associated with that unfortunately affect the potential surgical outcomes. She is aware that it is hoped that her primary ileocolonic anastomosis can be created though this may be significantly higher risk for failure. Because of her body habitus a diverting ileostomy or colostomy also would come with significant morbidity and complication. She has had an opportunity to ask and have questions answered. If a colectomy is deemed to be appropriate I plan on initiating it laparoscopically although with a right colectomy and incision is required for removal of the specimen. She has had an opportunity to ask and have questions answered. Apparently other physician care providers have discussed with her recommendations for transfer. From a surgical standpoint this is not required at this time. I would defer to medicine and intensive care if they feel tertiary transfer would be in their interest. Rk Pérez M.D., F.A.C.S.
--- NOTE | 2020-04-08 06:57 | PCM.PN.HOSP ---
Patient Problems: Active and Suspected Problems (Last Reviewed 04/06/20 @ 14:08 by Zaria TEJADA PA-C) Colitis (Acute) Rectal bleeding (Acute) Subjective: Patient overnight with no significant onset recurrent bloody bowel movements. Patient notes feeling improved, up toileting this morning with prep and some red tinge noted however significantly improved since prior. Patient denies any lightheadedness or dizziness with movement. Patient does note that her right-sided abdominal discomfort has been improving. Patient with planned colonoscopy today. Patient also signed consent for possible conversion to partial colectomy if recurrent severe bleeding. Patient denies fevers, chills, nausea, emesis, chest pain or dyspnea. Objective: Physical Examination: General: awake, alert, oriented x 3 and cooperative, seated upright in ICU bed, recent transition from bedside commode to bed without issue aside from expected fatigue. Skin: More pale color, normal turgor, no icterus, no cyanosis, abdominal incisions healing well. HEENT: AT/NC, EOMI, PERRLA, MMM. Lungs: CTA bilaterally, moderate effort, moderate decrease BL bases, no rales, ronchi or wheezing. Heart: Improved, regular rate with regular rhythm; no gallop, rub audible. Abdomen: soft, morbidly obese, prior discomfort improved with previously noted right sided upper and lower quadrant discomfort, no rebound or guarding, no discomfort in the epigastric region, unable to discern distention but morbidly obese habitus makes examination difficult, still some hyperactive bowel sounds. Neurological: Patient awake, alert, oriented as noted; cognitive function is baseline intact; pupils equally reactive to light and accomodation; cranial nerves II-XII grossly normal, moving all 4 extremities, no focal deficits, strength improving, moderately globally decreased given recent events over the last 12 hours. Psychiatric: affect appears improved, less fatigued, no acute evidence of depressive or anxiety feelings. Vitals/I&O's: Vital Signs Temp Pulse Resp BP Pulse Ox 97.9 F 81 18 130/66 H 98 04/08/20 04:00 04/08/20 06:00 04/08/20 06:00 04/08/20 06:00 04/08/20 06:00 Oxygen Flow Rate (L/min) 2 Oxygen Delivery Method Room Air Weight: 292 lb 5.327 oz Body Mass Index (BMI) 52.6 Orthostatic Vital Signs Start: 04/06/20 22:13 Freq: q24h Status: Active Protocol: Activity Type Activity Date Activity User E-Sign Co-Sign Detail Recorded Client Recorded Date Recorded By Document 04/06/20 22:13 LALY [id number] 04/06/20 22:14 LALY 04/06/20 22:13 Orthostatic Vitals Sitting -Blood Pressure 109/69 -Extremity Use Right Arm -Pulse Rate 92 Lying -Blood Pressure 135/60 -Extremity Use Right Arm -Pulse Rate 81 Intake and Output for Last 24 Hours 04/06/20 04/07/20 04/08/20 23:59 23:59 23:59 Intake Total 1811.67 / 1811.67 7525.00 / 7525.00 80 / 80 Output Total 300 / 300 2300 / 2300 Balance 1511.67 / 1511.67 5225.00 / 5225.00 80 / 80 Microbiology Past 72 Hours 04/06/20 18:35 Stool Enteric Bacteriology - Final 04/06/20 18:35 Stool C. difficile DNA Amplification - Final Laboratory Results 04/06/20 08:17: Crossmatch See Detail 04/07/20 10:30: Hgb 7.8 L, Hct 24.0 L 04/07/20 16:55: WBC 8.6, RBC 2.74 L, Hgb 8.2 L, Hct 24.7 L, MCV 90.1, MCH 29.9, MCHC 33.2, RDW Std Deviation 52.9 H, RDW Coeff of Omid 16.3 H, Plt Count 249, MPV 10.2, Immature Gran % (Auto) 0.500, Neut % (Auto) 71.7 H, Lymph % (Auto) 17.0 L, [facility] [facility] % (Auto) 10.3 H, Eos % (Auto) 0.2, Baso % (Auto) 0.3, Absolute Neuts (auto) 6.2, Absolute Lymphs (auto) 1.46, Nucleated RBC % 0 04/07/20 16:55: Hgb Cancelled, Hct Cancelled 04/07/20 21:51: Hgb Cancelled, Hct Cancelled 04/07/20 22:10: Hgb 10.7 L, Hct 32.9 L 04/08/20 04:20: Sodium 143, Potassium 3.4 L, Chloride 112 H, Carbon Dioxide 27.0, Anion Gap 4 L, BUN 5 L, Creatinine 0.61, Estim Creat Clear Calc 91.14, Est GFR (MDRD) Af Amer 135, Est GFR (MDRD) Non-Af 111, BUN/Creatinine Ratio 8.2 L, Glucose 112 H, Calcium 7.5 L 04/08/20 04:20: WBC 10.0, RBC 2.94 L, Hgb 8.8 L, Hct 26.3 L, MCV 89.5, MCH 29.9, MCHC 33.5, RDW Std Deviation 52.6 H, RDW Coeff of Omid 16.1 H, Plt Count 306, MPV 9.7 Current Medications Acetaminophen (Acetaminophen 325 Mg Tablet) 650 mg PO Q6H PRN PRN PRN Reason: Pain Score 1-10/Temp > 100.7 F Al Hydroxide/Mg Hydroxide (Mag Hydrox/Al Hydrox/Simeth 30 Ml Udc) 30 ml PO Q6H PRN PRN PRN Reason: Gastric Burning Albuterol Sulfate (Albuterol 2.5 Mg/3 Ml Vial.Neb.) 2.5 mg INHALATION Q4H PRN PRN Reason: SHORTNESS OF BREATH Guaifenesin (Guaifenesin 10 Ml Udc (200mg/10ml)) 20 ml PO Q4H PRN PRN PRN Reason: COUGH Piperacillin Sod/Tazobactam (Sod 3.375 gm/ Sodium Chloride) 50 mls @ 12.5 mls/hr IV Q8 [facility] Last Admin: 04/08/20 05:32 Dose: 12.5 mls/hr Documented by: Sodium Chloride () 500 mls @ 15 mls/hr IV PRN PRN PRN Reason: Blood Transfusion Last Infusion: 04/07/20 05:38 Dose: Infused Documented by: Pantoprazole Sodium 40 mg/ (Sodium Chloride) 110 mls @ 330 mls/hr IV Q12 [facility] Last Infusion: 04/07/20 20:35 Dose: Infused Documented by: Levothyroxine Sodium (Levothyroxine 150 Mcg Tablet) 150 mcg PO DAILY@0600 [facility] Last Admin: 04/08/20 05:32 Dose: 150 mcg Documented by: Melatonin (Melatonin 3 Mg Tablet) 3 mg PO QHS PRN PRN PRN Reason: INSOMNIA Morphine Sulfate (Morphine 2 Mg/Ml Syringe) 2 mg IV Q3H PRN PRN PRN Reason: Pain Score 6-10 Nitroglycerin (Nitroglycerin (Inpatient Use) 0.4 Mg Tab.Subl) 0.4 mg SUBLINGUAL Q5M PRN PRN Reason: CARDIAC/CHEST PAIN Ondansetron HCl (Ondansetron 4 Mg/2 Ml Vial) 4 mg IV Q8H PRN PRN PRN Reason: NAUSEA/VOMITING Last Admin: 04/07/20 20:19 Dose: 4 mg Documented by: Oxycodone HCl (Oxycodone 5 Mg Tablet) 5 mg PO Q4H PRN PRN PRN Reason: Pain Score 4-5 Prochlorperazine Edisylate (Prochlorperazine 10 Mg/2 Ml Vial) 5 mg IV Q4H PRN PRN PRN Reason: Breakthrough nausea/vomiting Sodium Chloride (0.9% Saline Lock 10 Ml Syringe) 10 - 40 ml IV UD PRN PRN Reason: SALINE FLUSH Last Admin: 04/07/20 21:03 Dose: 10 ml Documented by: Throat Lozenges (Benzocaine/Menthol 1 Lozenge) 1 lozenge MUCOUS MEM Q2H PRN PRN PRN Reason: SORE THROAT STROKE Vital Signs/Narrative: Vital Signs Temp Pulse Resp BP Pulse Ox 04/08/20 06:00 81 18 130/66 H 98 04/08/20 05:00 78 18 119/60 95 04/08/20 04:00 97.9 F 83 18 133/60 H 98 04/08/20 03:05 83 18 117/60 96 Medical Necessity - Tobacco Use Smoking Status: Never smoker Tobacco Use: Non-smoker Assessment/Plan All Active Problems (Last Reviewed 04/06/20 @ 14:08 by Zaria TEJADA PANamC) Colitis (Acute) Rectal bleeding (Acute) Acute appendicitis (Resolved) COVID-19 (Resolved) The patient is a 44 y/o F w/ PMHx: GERD with peptic ulcer history, HTN, HLD, Obesity, recent COVID + 03/24/20 s/p symptom onset 03/14/2020 with fevers, mild cough with 03/24/2020 evaluation with at that time right sided abdominal pain with eventual appendectomy for gangrenous appendicitis to be perforated who now re-presents to the [facility] ED on 04/06/20 set of rectal bleeding with bowel movements, loose (3-4x daily x 48 hours) at 4 AM noted to be intermittent with at least 3-4 episodes but progressively worsening with nausea without emesis with ongoing right sided abdominal discomfort, moderate in severity well as periumbilical discomfort, described as cramping. 1. Acute descending colitis with resulting Acute GI bleed with Acute Blood Anemia with resulting Acute Hemorrhagic Shock complicated by recent appendicitis status post appendectomy: CT A/P w/ evidence of sigmoid colitis. Work-up in the ED included 7.9, heart 98, BP 126/71, respiratory rate 14, 90% on 2 L nasal cannula with noted 97% on room air, seated with WBC 15.6, hemoglobin 13.1, platelet 42 with left shift, CMP with glucose 117 otherwise not marked appearing, this is unremarkable, CT abdomen and pelvis with evidence recent status post appendectomy with postsurgical changes right lower quadrant with inhomogenous appearance of the cecum with findings suggestive of submucosal pneumatosis with evidence of colitis involving the descending colon up to the region of the hepatic flexure with evidence of mesenteric adenopathy in the right lower quadrant. Patient initially admitted to the medical surgical floor, Covid panel labs with significantly elevated dimer although likely in large part secondary to patient recent operative interventions and inflammation, given recent CT abdomen and pelvis unable to perform CT PA therefore transiently placed on Lovenox and aspirin was administered in the ED given some concern for ischemia as possible etiology given recent Covid status. 04/06-04/07/20 worsened status, overnight with increased bleeding, hypotension with transition to the ICU, d/c lovenox/asa given onset evidence diffuse BRB with GI bleed. Hemoglobin trending with 04/06/2020 admission 13.1 -> 11.8 -> 11.3 -> 10.3 -> 8.9 -> 9.4 -> now most recent 7.8 following again 2 unit PRBC administration-->given the additional on hold 2 u PRBC for total 4 u-->04/08/20 Hgb 8.8. [employer] and general surgery following. Currently s/p overnight prep, planned c-scope per Dr. Pérez. If no clinically concerning findings, stable Hgb per discussion with ICU may consider PCU transfer. 2. Recent Acute Viral Syndrome, COVID-19: Patient prior to recent admission OR with testing positive at that time mild symptoms starting 03/14/2020 with fever as well as cough, resolved. Upon ED presentation with acute presentation general surgery noted concern for possible presentation associate with Covid status, obtained Covid panel including D-dimer, procalcitonin, CRP, CPK, Ferritin, LDH cautious with noted ferritin 140, LDH 208, CRP 57.3, procalcitonin 0.04, D-dimer 3.97 as well as lactic acid given abdominal complaints and atypical presentation noted to be 0.6. Initially placed on therapeutic Lovenox pending CTPA however discontinued secondary to onset of GI bleeding is noted #1. Following stability patient underwent CTPA 04/07/2020 a.m. with no obvious pulmonary emboli noted and expected post Covid changes. 3. Recent acute ruptured gangrenous appendicitis: Patient completed antibiotic Augmentin therapy initially IV inpatient status post with laparoscopic appendectomy with drainage, general surgery consulted and following currently. Patient currently as noted #1 maintained on IV Zosyn. 4. Hypertension: Holding home regimen given acute hemorrhagic shock, blood pressure is improving, add back once appropriate. 5. Hypothyroidism: Continue home synthroid regimen. 6. Morbid Obesity: Weight loss and lifestyle changes encouraged. 7. GERD with history of peptic ulcer disease: IV Protonix. 8. DVT prophylaxis: SCDs, no chemoprophylaxis given noted #1. 9. Code status: Full Code status. Inpatient E&M: [id number] [facility] L[facility]
--- NOTE | 2020-04-08 07:21 | PCM.PN.INT ---
Subjective: Patient did okay overnight. Bloody bowel movements have improved significantly. Patient did receive a bowel prep overnight and was able to tolerate. Patient believes abdominal pain is much improved compared to previous. Patient has been able to stand up on her own without having orthostatic symptoms. Objective: Patient did receive 4 units of packed red blood cells yesterday General: Alert, Oriented x3, Cooperative, No apparent distress, Well developed, Well nourished, - - Morbidly obese HEENT: Atraumatic, PERRLA, EOMI, Normocephalic, - - No scleral icterus or injection noted Oral: Moist Mucosa, No Gingival or Mucosal Lesions/ Ulcerations Neck: Supple, No JVD, No Nodes, Trachea Midline Lungs: Clear to auscultation, Normal air movement, No rhonchi, No wheeze, No rales, - - Symmetric expansion. Tolerating room air. Cardiovascular: Regular rate, Regular Rhythm, Normal S1, Normal S2, No murmurs, No rub noted, No Gallop Abdomen: Bowel Sounds Present, Soft, Non Tender, Non-Distended, Obese Extremities: No clubbing, No cyanosis, No edema, Capillary Refill Less than 3 Seconds Skin: No rashes, No breakdown Musculoskeletal: No Tenderness to Palpation of Joints or Extremities Lymphatic: No Cervical, Supraclavicular, or Inguinal Adenopathy Neurological: Cranial nerves II-XII grossly intact, Neuro grossly intact, Motor Exam 5/5 strength throughout Psych/Mental Status: Alert and oriented to time, place, person, mood and affect Vital Signs Temp Pulse Resp BP Pulse Ox 36.6 C 81 18 130/66 H 98 04/08/20 04:00 04/08/20 06:00 04/08/20 06:00 04/08/20 06:00 04/08/20 06:00 Oxygen Flow Rate (L/min) 2 Oxygen Delivery Method Room Air Weight: 132.6 kg Body Mass Index (BMI) 52.6 Orthostatic Vital Signs Start: 04/06/20 22:13 Freq: q24h Status: Active Protocol: Activity Type Activity Date Activity User E-Sign Co-Sign Detail Recorded Client Recorded Date Recorded By Document 04/06/20 22:13 LEONOR [id number] 04/06/20 22:14 LALY 04/06/20 22:13 Orthostatic Vitals Sitting -Blood Pressure 109/69 -Extremity Use Right Arm -Pulse Rate 92 Lying -Blood Pressure 135/60 -Extremity Use Right Arm -Pulse Rate 81 Intake and Output for Last 24 Hours 04/06/20 04/07/20 04/08/20 23:59 23:59 23:59 Intake Total 1811.67 / 1811.67 7525.00 / 7525.00 80 / 80 Output Total 300 / 300 2300 / 2300 Balance 1511.67 / 1511.67 5225.00 / 5225.00 80 / 80 Labs (Last 48 Hours) 04/06/20 04/06/20 04/06/20 08:15 08:17 08:17 WBC 15.6 H RBC 4.34 Hgb 13.1 Hct 40.4 MCV 93.1 MCH 30.2 MCHC 32.4 RDW Std Deviation 47.8 H RDW Coeff of Omid 14.1 Plt Count 482 H MPV 9.4 Immature Gran % (Auto) 0.400 Neut % (Auto) 80.6 H Lymph % (Auto) 10.6 L [place] % (Auto) 7.8 Eos % (Auto) 0.3 Baso % (Auto) 0.3 Absolute Neuts (auto) 12.6 H Absolute Lymphs (auto) 1.65 Nucleated RBC % 0 D-Dimer Quant (PE/DVT) Sodium 136 Potassium 3.9 Chloride 103 Carbon Dioxide 28.0 Anion Gap 5 BUN 7 Creatinine 0.78 Estim Creat Clear Calc 71.28 Est GFR (MDRD) Af Amer 102 Est GFR (MDRD) Non-Af 85 BUN/Creatinine Ratio 9.0 L Glucose 117 H Lactic Acid Calcium 9.2 Magnesium Ferritin Total Bilirubin 0.40 AST 16 ALT 21 Alkaline Phosphatase 85 Lactate Dehydrogenase C-React Prot Ext Range Total Protein 7.8 Albumin 2.8 L Globulin 5.0 H Albumin/Globulin Ratio 0.6 L Procalcitonin Urine Color Urine Clarity Urine pH Ur Specific [place] Urine Protein Urine Glucose (UA) Urine Ketones Urine Occult Blood Urine Nitrite Urine Bilirubin Urine Urobilinogen Ur Leukocyte Esterase Urine RBC Urine WBC Ur Squamous Epith Cells Urine Bacteria Urine Mucus POC Glucose Blood Type Antibody Screen Crossmatch See Detail 04/06/20 04/06/20 04/06/20 08:17 08:17 08:17 WBC RBC Hgb Hct MCV MCH MCHC RDW Std Deviation RDW Coeff of Omid Plt Count MPV Immature Gran % (Auto) Neut % (Auto) Lymph % (Auto) [place] % (Auto) Eos % (Auto) Baso % (Auto) Absolute Neuts (auto) Absolute Lymphs (auto) Nucleated RBC % D-Dimer Quant (PE/DVT) 3.97 H* Sodium Potassium Chloride Carbon Dioxide Anion Gap BUN Creatinine Estim Creat Clear Calc Est GFR (MDRD) Af Amer Est GFR (MDRD) Non-Af BUN/Creatinine Ratio Glucose Lactic Acid Calcium Magnesium 2.1 Ferritin 140 Total Bilirubin AST ALT Alkaline Phosphatase Lactate Dehydrogenase 208 C-React Prot Ext Range 57.30 H Total Protein Albumin Globulin Albumin/Globulin Ratio Procalcitonin Urine Color Urine Clarity Urine pH Ur Specific [place] Urine Protein Urine Glucose (UA) Urine Ketones Urine Occult Blood Urine Nitrite Urine Bilirubin Urine Urobilinogen Ur Leukocyte Esterase Urine RBC Urine WBC Ur Squamous Epith Cells Urine Bacteria Urine Mucus POC Glucose Blood Type O NEGATIVE Antibody Screen NEGATIVE Crossmatch 04/06/20 04/06/20 04/06/20 08:17 08:17 09:05 WBC RBC Hgb Hct MCV MCH MCHC RDW Std Deviation RDW Coeff of Omid Plt Count MPV Immature Gran % (Auto) Neut % (Auto) Lymph % (Auto) [place] % (Auto) Eos % (Auto) Baso % (Auto) Absolute Neuts (auto) Absolute Lymphs (auto) Nucleated RBC % D-Dimer Quant (PE/DVT) Sodium Potassium Chloride Carbon Dioxide Anion Gap BUN Creatinine Estim Creat Clear Calc Est GFR (MDRD) Af Amer Est GFR (MDRD) Non-Af BUN/Creatinine Ratio Glucose Lactic Acid Calcium Magnesium Ferritin Total Bilirubin AST ALT Alkaline Phosphatase Lactate Dehydrogenase C-React Prot Ext Range Total Protein Albumin Globulin Albumin/Globulin Ratio Procalcitonin 0.04 Urine Color Yellow Urine Clarity Clear Urine pH 7.0 Ur Specific [place] 1.005 Urine Protein Negative Urine Glucose (UA) Normal Urine Ketones Negative Urine Occult Blood Negative Urine Nitrite Negative Urine Bilirubin Negative Urine Urobilinogen Normal Ur Leukocyte Esterase Negative Urine RBC 0 SEEN Urine WBC 0 SEEN Ur Squamous Epith Cells 0-5 SEEN Urine Bacteria 0 SEEN Urine Mucus 0 SEEN POC Glucose Blood Type Antibody Screen Crossmatch See Detail 04/06/20 04/06/20 04/06/20 13:47 14:59 18:03 WBC RBC Hgb 11.8 L 11.3 L Hct 36.0 L 35.9 L MCV MCH MCHC RDW Std Deviation RDW Coeff of Omid Plt Count MPV Immature Gran % (Auto) Neut % (Auto) Lymph % (Auto) [place] % (Auto) Eos % (Auto) Baso % (Auto) Absolute Neuts (auto) Absolute Lymphs (auto) Nucleated RBC % D-Dimer Quant (PE/DVT) Sodium Potassium Chloride Carbon Dioxide Anion Gap BUN Creatinine Estim Creat Clear Calc Est GFR (MDRD) Af Amer Est GFR (MDRD) Non-Af BUN/Creatinine Ratio Glucose Lactic Acid 0.6 Calcium Magnesium Ferritin Total Bilirubin AST ALT Alkaline Phosphatase Lactate Dehydrogenase C-React Prot Ext Range Total Protein Albumin Globulin Albumin/Globulin Ratio Procalcitonin Urine Color Urine Clarity Urine pH Ur Specific [place] Urine Protein Urine Glucose (UA) Urine Ketones Urine Occult Blood Urine Nitrite Urine Bilirubin Urine Urobilinogen Ur Leukocyte Esterase Urine RBC Urine WBC Ur Squamous Epith Cells Urine Bacteria Urine Mucus POC Glucose Blood Type Antibody Screen Crossmatch 04/06/20 04/06/20 04/06/20 21:49 22:01 23:59 WBC RBC Hgb 10.3 L 8.9 L Hct 32.3 L 28.3 L MCV MCH MCHC RDW Std Deviation RDW Coeff of Omid Plt Count MPV Immature Gran % (Auto) Neut % (Auto) Lymph % (Auto) [place] % (Auto) Eos % (Auto) Baso % (Auto) Absolute Neuts (auto) Absolute Lymphs (auto) Nucleated RBC % D-Dimer Quant (PE/DVT) Sodium Potassium Chloride Carbon Dioxide Anion Gap BUN Creatinine Estim Creat Clear Calc Est GFR (MDRD) Af Amer Est GFR (MDRD) Non-Af BUN/Creatinine Ratio Glucose Lactic Acid Calcium Magnesium Ferritin Total Bilirubin AST ALT Alkaline Phosphatase Lactate Dehydrogenase C-React Prot Ext Range Total Protein Albumin Globulin Albumin/Globulin Ratio Procalcitonin Urine Color Urine Clarity Urine pH Ur Specific [place] Urine Protein Urine Glucose (UA) Urine Ketones Urine Occult Blood Urine Nitrite Urine Bilirubin Urine Urobilinogen Ur Leukocyte Esterase Urine RBC Urine WBC Ur Squamous Epith Cells Urine Bacteria Urine Mucus POC Glucose 153 H Blood Type Antibody Screen Crossmatch 04/07/20 04/07/20 04/07/20 04:10 04:10 05:15 WBC RBC Hgb 9.4 L Hct 29.4 L MCV MCH MCHC RDW Std Deviation RDW Coeff of Omid Plt Count MPV Immature Gran % (Auto) Neut % (Auto) Lymph % (Auto) [place] % (Auto) Eos % (Auto) Baso % (Auto) Absolute Neuts (auto) Absolute Lymphs (auto) Nucleated RBC % D-Dimer Quant (PE/DVT) Sodium 140 Potassium 4.7 Chloride 113 H Carbon Dioxide 23.0 Anion Gap 4 L BUN 10 Creatinine 0.86 Estim Creat Clear Calc 64.65 Est GFR (MDRD) Af Amer 92 Est GFR (MDRD) Non-Af 76 BUN/Creatinine Ratio 11.7 Glucose 176 H Lactic Acid 1.0 Calcium 6.9 L Magnesium Ferritin Total Bilirubin 0.90 AST 12 L ALT 13 Alkaline Phosphatase 51 Lactate Dehydrogenase C-React Prot Ext Range Total Protein 5.2 L Albumin 1.8 L Globulin 3.4 Albumin/Globulin Ratio 0.5 L Procalcitonin Urine Color Urine Clarity Urine pH Ur Specific [place] Urine Protein Urine Glucose (UA) Urine Ketones Urine Occult Blood Urine Nitrite Urine Bilirubin Urine Urobilinogen Ur Leukocyte Esterase Urine RBC Urine WBC Ur Squamous Epith Cells Urine Bacteria Urine Mucus POC Glucose Blood Type Antibody Screen Crossmatch 04/07/20 04/07/20 04/07/20 10:30 16:55 16:55 WBC 8.6 RBC 2.74 L Hgb 7.8 L 8.2 L Cancelled Hct 24.0 L 24.7 L Cancelled MCV 90.1 MCH 29.9 MCHC 33.2 RDW Std Deviation 52.9 H RDW Coeff of Omid 16.3 H Plt Count 249 MPV 10.2 Immature Gran % (Auto) 0.500 Neut % (Auto) 71.7 H Lymph % (Auto) 17.0 L [place] % (Auto) 10.3 H Eos % (Auto) 0.2 Baso % (Auto) 0.3 Absolute Neuts (auto) 6.2 Absolute Lymphs (auto) 1.46 Nucleated RBC % 0 D-Dimer Quant (PE/DVT) Sodium Potassium Chloride Carbon Dioxide Anion Gap BUN Creatinine Estim Creat Clear Calc Est GFR (MDRD) Af Amer Est GFR (MDRD) Non-Af BUN/Creatinine Ratio Glucose Lactic Acid Calcium Magnesium Ferritin Total Bilirubin AST ALT Alkaline Phosphatase Lactate Dehydrogenase C-React Prot Ext Range Total Protein Albumin Globulin Albumin/Globulin Ratio Procalcitonin Urine Color Urine Clarity Urine pH Ur Specific [place] Urine Protein Urine Glucose (UA) Urine Ketones Urine Occult Blood Urine Nitrite Urine Bilirubin Urine Urobilinogen Ur Leukocyte Esterase Urine RBC Urine WBC Ur Squamous Epith Cells Urine Bacteria Urine Mucus POC Glucose Blood Type Antibody Screen Crossmatch 04/07/20 04/07/20 04/08/20 21:51 22:10 04:20 WBC RBC Hgb Cancelled 10.7 L Hct Cancelled 32.9 L MCV MCH MCHC RDW Std Deviation RDW Coeff of Omid Plt Count MPV Immature Gran % (Auto) Neut % (Auto) Lymph % (Auto) [place] % (Auto) Eos % (Auto) Baso % (Auto) Absolute Neuts (auto) Absolute Lymphs (auto) Nucleated RBC % D-Dimer Quant (PE/DVT) Sodium 143 Potassium 3.4 L Chloride 112 H Carbon Dioxide 27.0 Anion Gap 4 L BUN 5 L Creatinine 0.61 Estim Creat Clear Calc 91.14 Est GFR (MDRD) Af Amer 135 Est GFR (MDRD) Non-Af 111 BUN/Creatinine Ratio 8.2 L Glucose 112 H Lactic Acid Calcium 7.5 L Magnesium Ferritin Total Bilirubin AST ALT Alkaline Phosphatase Lactate Dehydrogenase C-React Prot Ext Range Total Protein Albumin Globulin Albumin/Globulin Ratio Procalcitonin Urine Color Urine Clarity Urine pH Ur Specific [place] Urine Protein Urine Glucose (UA) Urine Ketones Urine Occult Blood Urine Nitrite Urine Bilirubin Urine Urobilinogen Ur Leukocyte Esterase Urine RBC Urine WBC Ur Squamous Epith Cells Urine Bacteria Urine Mucus POC Glucose Blood Type Antibody Screen Crossmatch 04/08/20 04:20 WBC 10.0 RBC 2.94 L Hgb 8.8 L Hct 26.3 L MCV 89.5 MCH 29.9 MCHC 33.5 RDW Std Deviation 52.6 H RDW Coeff of Omid 16.1 H Plt Count 306 MPV 9.7 Immature Gran % (Auto) Neut % (Auto) Lymph % (Auto) [place] % (Auto) Eos % (Auto) Baso % (Auto) Absolute Neuts (auto) Absolute Lymphs (auto) Nucleated RBC % D-Dimer Quant (PE/DVT) Sodium Potassium Chloride Carbon Dioxide Anion Gap BUN Creatinine Estim Creat Clear Calc Est GFR (MDRD) Af Amer Est GFR (MDRD) Non-Af BUN/Creatinine Ratio Glucose Lactic Acid Calcium Magnesium Ferritin Total Bilirubin AST ALT Alkaline Phosphatase Lactate Dehydrogenase C-React Prot Ext Range Total Protein Albumin Globulin Albumin/Globulin Ratio Procalcitonin Urine Color Urine Clarity Urine pH Ur Specific [place] Urine Protein Urine Glucose (UA) Urine Ketones Urine Occult Blood Urine Nitrite Urine Bilirubin Urine Urobilinogen Ur Leukocyte Esterase Urine RBC Urine WBC Ur Squamous Epith Cells Urine Bacteria Urine Mucus POC Glucose Blood Type Antibody Screen Crossmatch Microbiology 04/06/20 18:35 Stool Enteric Bacteriology - Final 04/06/20 18:35 Stool C. difficile DNA Amplification - Final Clinical Impression(s) from Imaging Studies Chest CTA 04/07/20 05:55 IMPRESSION: Thickening of the right major fissure with some mild increased markings in the lingular segment of the left upper lobe as well as in the right lung base suggestive of atelectasis. No evidence of pulmonary embolism. Electronically Signed: Ward Willa, at 9:48 EST , Service support , Medical Necessity - Tobacco Use Smoking Status: Never smoker Tobacco Use: Non-smoker Assessment/Plan All Active Problems (Last Reviewed 04/06/20 @ 14:08 by Zaria TEJADA, PANamC) Colitis (Acute) Rectal bleeding (Acute) Acute appendicitis (Resolved) COVID-19 (Resolved) RECOMMENDATIONS: 1. Await response to surgical recommendations 2. Continue to hold anticoagulation 3. Possibly recheck H&H this evening with transfusion if indicated 4. Continue to monitor patient clinically for orthostatic changes IMPRESSIONS: 1. Hemorrhagic shock secondary to acute blood loss anemia secondary to probable GI bleed Exact source of bleeding is unclear at this time. Patient reportedly has had hematochezia suggestive of a lower GI bleed, but physical exam is suggestive of an upper GI source with right upper quadrant and epigastric pain. Abdominal pain and bleeding are significantly improved today compared to previous. This may be secondary to holding of anticoagulation. Surgically, patient is planned for a colonoscopy later today. Blood pressures are much improved and patient is no longer having orthostatic type symptoms. 2. Acute descending colitis Patient with recent surgery of the appendix with concomitant Covid positive status. Patient is currently normotensive and C. difficile was negative. Continue with empiric antibiotics per surgery. Defer to surgery on visualization for potential source. We will hold on volume resuscitation for now as blood pressures appear to be appropriate. 3. Hypertension/recent ruptured appendicitis/hypothyroidism/morbid obesity Complicates care, management, recovery and prognosis. Hold baseline antihypertensives. Okay to continue Synthroid. Inpatient E&M: 04030 Subs Hosp L3
--- NOTE | 2020-04-08 11:00 | COLBX_PTH ---
PATIENT: ZAID HOLMAN LOC: [facility] U#:[id number] AGE/SX: 44/F ROOM: [facility] RE04/06/[address]: Dr. Monique Cevallos MD : 1975 BED: 1 DIS: 04/10/2020 SPEC #: [id number] RECD: 04/08/20 11:46 STATUS: LATRICE REQ #: [id number] AMANDA: 04/08/20 11:[address]: Rk Pérez DEPT: SURGICAL PATHOLOGY RECD BY: Mariola Toney ENTERED: 04/08/20 12:22 SP TYPE: COLON BX OTHR DR: MD Dr. Steve Wilkinson MD Dr. Laura Barr, MD Tissues: A - Ileum, NOS B - Ileum, NOS Procedures: Frozen Section (charge) Surgery Specimen Level IV HEADER OPERATION: Colonoscopy (MAC) PRE-OP DIAGNOSIS: Rectal bleeding TISSUE SUBMITTED: A - Ileocecal valve biopsy, frozen section, B - Ileocecal valve biopsy FROZEN SECTION DIAGNOSIS A. Ileocecal valve, biopsy: Fragments of colonic mucosa with prominent lymphoid aggregate, negative for malignancy. SJ:consuelo 04/08/20 MICROSCOPIC DIAGNOSIS A. Ileocecal valve, biopsy: Polytypic lymphoid aggregate. See comment. B. Ileocecal valve, biopsy: Granulation with associated adipose tissue, acute and chronic inflammation and fibrinopurulent material. Benign fragment of colonic mucosa. No evidence of malignancy. See comment. AM:consuelo 04/12/20 COMMENT A. Immunohistochemistry ([id number]) supports the above diagnosis. No ulceration or mucosal lesion is present in this specimen. B. The findings are consistent with an ulcer. Clinical correlation is suggested. Case has been reviewed in consultation with Dr. Ceron who concurs with the above diagnosis. IDC:[email or web address] MICROSCOPIC DESCRIPTION Slides are reviewed. GROSS DESCRIPTION A - Received fresh for frozen section diagnosis labeled with the patient's name is a specimen designated ileocecal valve biopsy. The specimen consists of a piece of [place]-pink soft tissue measuring 0.3 x 0.3 x 0.1 cm. The entire specimen is submitted for frozen section diagnosis in one cassette. / RICKY:consuelo 04/08/20 B - Received in fixative is one container labeled with the patient's name and designated ileocecal valve biopsy. The specimen consists of multiple irregular fragments of light [place] soft tissue that in aggregate measure 0.8 x 0.5 x 0.1 cm. The specimen is totally submitted in one cassette. / RICKY:consuelo 04/09/20 TC:2 CPT: 97328 x2, 70473
--- NOTE | 2020-04-08 11:56 | OP.CCLET_ITS ---
04/08/2020 Pushpa Smith Re : Colonoscopy procedure for Ethel Gamble Dear Sarah This procedure was performed on March. My impressions and recommendations are as follows: Impressions : - Diverticulosis in the entire examined colon. - A single (solitary) ulcer at the ileocecal valve. Inflammation, slight ooz. Stenosis. Biopsied. Injected with epinephrine. - The examination was otherwise normal. Recommendations : - Return patient to ICU for ongoing care. - NPO. - Continue present medications. - Repeat colonoscopy in 10 years for screening purposes. My findings are described in the full procedure note, which is enclosed. If I can be of further assistance, please feel free to contact me at Doctor phone number(s): Work: . Sincerely, Rk Pérez MD 04/08/2020 11:55:55 AM This report has been signed electronically.
--- NOTE | 2020-04-08 11:56 | OP.COLON_ITS ---
Patient Name: Ethel Gamble Procedure Date: 04/08/2020 11:09 AM Date of : 1975 Age: 44 Procedure: Colonoscopy Indications: Rectal bleeding Providers: Rk Pérez MD Medicines: See the Anesthesia note for documentation of the administered medications Patient Profile: Last Colonoscopy: none. The patient's first colonoscopy is today. Complications: No immediate complications. Procedure: Pre-Anesthesia Assessment: - Prior to the procedure, a History and Physical was performed, and patient medications and allergies were reviewed. The patient's tolerance of previous anesthesia was also reviewed. The risks and benefits of the procedure and the sedation options and risks were discussed with the patient. All questions were answered, and informed consent was obtained. Prior Anticoagulants: The patient has taken no previous anticoagulant or antiplatelet agents. ASA Grade Assessment: III - A patient with severe systemic disease. After reviewing the risks and benefits, the patient was deemed in satisfactory condition to undergo the procedure. After I obtained informed consent, the scope was passed under direct vision. Throughout the procedure, the patient's blood pressure, pulse, and oxygen saturations were monitored continuously. The colonoscope was introduced through the anus and advanced to the cecum, identified by appendiceal orifice and ileocecal valve. The colonoscopy was performed without difficulty. The patient tolerated the procedure well. The quality of the bowel preparation was excellent. The ileocecal valve and the appendiceal orifice were photographed. Scope In: 11:23:25 AM Scope Withdrawal Time 0 hours 16 minutes 11 seconds Scope Out: 11:43:19 AM Total Procedure Duration Time 0 hours 19 minutes 54 seconds Findings: The perianal and digital rectal examinations were normal. Multiple diverticula were found in the entire colon. The ileocecal valve contained a single (solitary) ulcer. Oozing was present. Stigmata of recent bleeding were present. Biopsies were taken with a cold forceps for histology. Area was successfully injected with 4 mL of a 1:10,000 solution of epinephrine for drug delivery. Estimated blood loss was minimal. The exam was otherwise without abnormality. Impression: - Diverticulosis in the entire examined colon. - A single (solitary) ulcer at the ileocecal valve. Inflammation, slight ooz. Stenosis. Biopsied. Injected with epinephrine. - The examination was otherwise normal. Recommendation: - Return patient to ICU for ongoing care. - NPO. - Continue present medications. - Repeat colonoscopy in 10 years for screening purposes. Procedure Code(s): --- Professional --- 09837, Colonoscopy, flexible; with directed submucosal injection(s), any substance 72067, Colonoscopy, flexible; with biopsy, single or multiple Diagnosis Code(s): --- Professional --- K63.3, Ulcer of intestine K62.5, Hemorrhage of anus and rectum K57.30, Diverticulosis of large intestine without perforation or abscess without bleeding CPT copyright 2017 [employer]. All rights reserved. The codes documented in this report are preliminary and upon auxiliary operator review may be revised to meet current compliance requirements. Rk Pérez MD 04/08/2020 11:55:55 AM This report has been signed electronically. Number of Addenda: 0 Note Initiated On: 04/08/2020 11:09 AM
[2020-04-08] MEDS: 0.9% Saline Lock 10 ML Syringe IV (13:07)
[2020-04-08 13:52] LABS: Hematocrit 23.5 % (37-47); Hemoglobin 8.1 g/dL (12.0-15.0)
--- NOTE | 2020-04-08 14:22 | PCM.PN.BLA ---
Progress Note : Completely evacuated of stool and blood. Ascending colon completely normal except for ileocecal valve which appeared swollen edematous erythematous with stenosis of the lumen and what appeared to be in ulcerative the channel of the lumen. Stained mucus emanating from the ileocecal valve. This area was treated with epinephrine injection although there was not a specific focal source and certainly not a focal bleeding vessel that could be identified. Patient is allowed sips and chips of water. She otherwise will be kept n.p.o. I will initiate a low rate of IV fluids. Her abdominal exam is currently unchanged. I plan for repeat laboratory later today as well as routine a.m. labs. I am advising against aspirin or NSAIDs or anticoagulants at this time. Biopsies were obtained of this ileocecal valve with frozen section negative for malignancy but clinically it appeared to be much more consistent with an acute inflammatory change and possible ulceration. Final pathology is pending. Plans to proceed with a right colectomy today were canceled as it is still hope that she will resolve with nonoperative measures. Rk Pérez M.D., F.A.C.S. STROKE Vital Signs/Narrative: Vital Signs Temp Pulse Resp BP BP Pulse Ox 04/08/20 14:00 80 18 128/66 H 96 04/08/20 13:05 96.8 F L 86 18 156/68 H 96 04/08/20 12:39 88 04/08/20 12:17 98.6 F 80 16 154/64 H 99 04/08/20 12:12 90 16 114/52 L 100 04/08/20 12:07 86 16 130/54 H 100 04/08/20 12:02 97.3 F L 86 16 128/52 H 100
[2020-04-08 18:58] LABS: Hematocrit 29.2 % (37-47); Hemoglobin 9.3 g/dL (12.0-15.0)
[2020-04-08] MEDS: 0.9% Normal Saline 1,000 ML 50 ML IV (20:02)
[2020-04-09] VITALS (24 sets, daily range): BP systolic 107–144; BP diastolic 44–91; PULSE 70–94; RESP 14–27; TEMP 36–37.1; O2SAT 91–100
[2020-04-09 00:23] LABS: Hematocrit 23.9 % (37-47); Hemoglobin 8.1 g/dL (12.0-15.0)
[2020-04-09 04:30] LABS: Absolute Lymphocyte Count 2.36 X10^3/uL (0.83-4.51); Absolute Neutrophil Count 4.3 X10^3/uL (2.0-7.7); Basophil# 0.06 X10^3/uL; Basophil% 0.8 % (0-1); Eosinophil# 0.14 X10^3/uL; Eosinophils% 1.8 % (0-5); Hematocrit 23.5 % (37-47); Hemoglobin 7.7 g/dL (12.0-15.0); Lymphocyte # 2.36 X10^3/ul (4.0); Lymphocyte % 30.7 % (19-41); Mean Corp Hgb Conc 32.8 g/dL (32-36); Mean Corpuscular Hgb 29.8 pg (27.0-32.0); Mean Corpuscular Volume 91.1 fL (81-99); Mean Platelet Vol. 9.5 fl (6.2-12.0); Monocyte# 0.75 X10^3/uL; Monocyte% 9.8 % (0-10); NRBC Flagged by Analyzer 0 % (0-5); Neutrophil # 4.32 X10^3/uL (2.7-7.7); Neutrophil % 56.2 % (47-70); Platelet Count 294 K/mm3 (150-450); RBC Distribution Width CV 16.1 % (11.6-14.6); RBC Distribution Width SD 53.4 fl (35.1-43.9); Red Blood Count 2.58 M/mm3 (4.2-5.4); White Blood Count 7.7 K/mm3 (4.4-11.0)
[2020-04-09 04:45] LABS: ALB/GLOB Ratio 0.6 RATIO (0.9-2.4); AST(SGOT) 8 U/L (15-37); Alanine Aminotransfer ALT/SGPT 12 U/L (13-56); Alkaline Phosphatase 48 U/L (45-117); Anion Gap 4 (5-15); BUN 5 mg/dL (7-18); BUN/Creat Ratio 7.9 RATIO (10-20); Calcium,Total 7.4 mg/dL (8.5-10.1); Chloride 111 mmol/L (98-107); Creatinine, Serum 0.63 mg/dL (0.55-1.02); EST Glomerular Filtration Rate 108 mL/min (>60); Est Glom Filt Rate - Afr Amer 130 mL/min (>60); Estimated Creatinine Clearance 88.25 ml/min; Globulin 3.5 g/dL (2.2-4.2); Glucose 80 mg/dL (74-106); Potassium 3.2 mmol/L (3.5-5.1); Protein, Total 5.5 g/dL (6.4-8.2); Sodium Level 142 mmol/L (136-145)
--- NOTE | 2020-04-09 05:17 | PN.SURG_ITS ---
Patient Problems: Active and Suspected Problems (Last Reviewed 04/06/20 @ 14:08 by Zaria TEJADA PA-C) Colitis (Acute) Rectal bleeding (Acute) Subjective: Patient has not moved her bowels since her colonoscopy yesterday at 11 AM. She does not sense any flatus. She thinks she may need to move her bowels now. She states that her right upper quadrant abdominal pain is improved. - Physical Exam Vitals/I&O's: Vital Signs Temp Pulse Resp BP Pulse Ox 97.8 F 78 19 H 121/60 H 93 04/09/20 04:00 04/09/20 05:00 04/09/20 05:00 04/09/20 05:00 04/09/20 05:00 Oxygen Flow Rate (L/min) 2 Oxygen Delivery Method Room Air Weight: 292 lb 5.327 oz Body Mass Index (BMI) 53.4 Orthostatic Vital Signs Start: 04/06/20 22:13 Freq: q24h Status: Active Protocol: Activity Type Activity Date Activity User E-Sign Co-Sign Detail Recorded Client Recorded Date Recorded By Document 04/06/20 22:13 [facility] [id number] 04/06/20 22:14 [facility] 04/06/20 22:13 Orthostatic Vitals Sitting -Blood Pressure (90/60-120/80) 109/69 -Extremity Use Right Arm -Pulse Rate (60-100) 92 Lying -Blood Pressure (90/60-120/80) 135/60 H -Extremity Use Right Arm -Pulse Rate (60-100) 81 Intake and Output for Last 24 Hours 04/07/20 04/08/20 04/09/20 23:59 23:59 23:59 Intake Total 7525.00 / 7525.00 620 / 620 110 / 110 Output Total 2300 / 2300 1300 / 1300 Balance 5225.00 / 5225.00 -680 / -680 110 / 110 Abdomen: Soft, Non Tender, Non-Distended Microbiology Past 72 Hours 04/06/20 18:35 Stool Enteric Bacteriology - Final 04/06/20 18:35 Stool C. difficile DNA Amplification - Final Laboratory Results 04/08/20 13:38: Hgb 8.1 L, Hct 23.5 L 04/08/20 18:42: Hgb 9.3 L, Hct 29.2 L 04/09/20 00:13: Hgb 8.1 L, Hct 23.9 L 04/09/20 04:20: WBC 7.7, RBC 2.58 L, Hgb 7.7 L, Hct 23.5 L, MCV 91.1, MCH 29.8, MCHC 32.8, RDW Std Deviation 53.4 H, RDW Coeff of Omid 16.1 H, Plt Count 294, MPV 9.5, Immature Gran % (Auto) 0.700, Neut % (Auto) 56.2, Lymph % (Auto) 30.7, [place] % (Auto) 9.8, Eos % (Auto) 1.8, Baso % (Auto) 0.8, Absolute Neuts (auto) 4.3, Absolute Lymphs (auto) 2.36, Nucleated RBC % 0 04/09/20 04:20: Sodium 142, Potassium 3.2 L, Chloride 111 H, Carbon Dioxide 27.0, Anion Gap 4 L, BUN 5 L, Creatinine 0.63, Estim Creat Clear Calc 88.25, Est GFR (MDRD) Af Amer 130, Est GFR (MDRD) Non-Af 108, BUN/Creatinine Ratio 7.9 L, Glucose 80, Calcium 7.4 L, Total Bilirubin 0.30, AST 8 L, ALT 12 L, Alkaline Phosphatase 48, Total Protein 5.5 L, Albumin 2.0 L, Globulin 3.5, Albumin /Globulin Ratio 0.6 L Current Medications Acetaminophen (Acetaminophen 325 Mg Tablet) 650 mg PO Q6H PRN PRN PRN Reason: Pain Score 1-10/Temp > 100.7 F Al Hydroxide/Mg Hydroxide (Mag Hydrox/Al Hydrox/Simeth 30 Ml Udc) 30 ml PO Q6H PRN PRN PRN Reason: Gastric Burning Albuterol Sulfate (Albuterol 2.5 Mg/3 Ml Vial.Neb.) 2.5 mg INHALATION Q4H PRN PRN Reason: SHORTNESS OF BREATH Guaifenesin (Guaifenesin 10 Ml Udc (200mg/10ml)) 20 ml PO Q4H PRN PRN PRN Reason: COUGH Piperacillin Sod/Tazobactam (Sod 3.375 gm/ Sodium Chloride) 50 mls @ 12.5 mls/hr IV Q8 [facility] Last Infusion: 04/09/20 01:52 Dose: Infused Documented by: Sodium Chloride () 500 mls @ 15 mls/hr IV PRN PRN PRN Reason: Blood Transfusion Last Infusion: 04/07/20 05:38 Dose: Infused Documented by: Pantoprazole Sodium 40 mg/ (Sodium Chloride) 110 mls @ 330 mls/hr IV Q12 [facility] [place] Last Infusion: 04/08/20 21:32 Dose: Infused Documented by: Sodium Chloride () 1,000 mls @ 50 mls/hr IV .Q20H [facility] [place] Last Admin: 04/08/20 20:02 Dose: 50 mls/hr Documented by: Levothyroxine Sodium (Levothyroxine 150 Mcg Tablet) 150 mcg PO DAILY@0600 [facility] [place] Last Admin: 04/08/20 05:32 Dose: 150 mcg Documented by: Melatonin (Melatonin 3 Mg Tablet) 3 mg PO QHS PRN PRN PRN Reason: INSOMNIA Morphine Sulfate (Morphine 2 Mg/Ml Syringe) 2 mg IV Q3H PRN PRN PRN Reason: Pain Score 6-10 Nitroglycerin (Nitroglycerin (Inpatient Use) 0.4 Mg Tab.Subl) 0.4 mg SUBLINGUAL Q5M PRN PRN Reason: CARDIAC/CHEST PAIN Ondansetron HCl (Ondansetron 4 Mg/2 Ml Vial) 4 mg IV Q8H PRN PRN PRN Reason: NAUSEA/VOMITING Last Admin: 04/07/20 20:19 Dose: 4 mg Documented by: Oxycodone HCl (Oxycodone 5 Mg Tablet) 5 mg PO Q4H PRN PRN PRN Reason: Pain Score 4-5 Prochlorperazine Edisylate (Prochlorperazine 10 Mg/2 Ml Vial) 5 mg IV Q4H PRN PRN PRN Reason: Breakthrough nausea/vomiting Sodium Chloride (0.9% Saline Lock 10 Ml Syringe) 10 - 40 ml IV UD PRN PRN Reason: SALINE FLUSH Last Admin: 04/07/20 21:03 Dose: 10 ml Documented by: Throat Lozenges (Benzocaine/Menthol 1 Lozenge) 1 lozenge MUCOUS MEM Q2H PRN PRN PRN Reason: SORE THROAT Medical Necessity - Tobacco Use Smoking Status: Never smoker Tobacco Use: Non-smoker Assessment/Plan All Active Problems (Last Reviewed 04/06/20 @ 14:08 by Zaria TEJADA PA-C) Colitis (Acute) Rectal bleeding (Acute) Acute appendicitis (Resolved) COVID-19 (Resolved) She states that she thinks she may need to move her bowels now. I will await gross inspection of the stool. If this appears to be more consistent with stool then I would recommend initiating a clear liquid diet and we could help supplement her hypokalemia orally. If what she moves per rectum is more consistent with blood than that would represent new bleeding and repeat consideration for possible right colectomy would need to be entertained. Her entire colon was prepped yesterday and clear of blood and clots. Any current clinical findings of rectal bleeding would be consistent with new blood. Her erratic hemoglobin hematocrit laboratory is hard to interpret so I will utilize her clinical findings to help make recommendations and determinations. Rk Pérez M.D., F.A.C.S.
[2020-04-09] MEDS: Potassium Chloride 10mEq/100mL 10 MEQ/100 ML IV.SOLN. 100 MEQ IV BOLUS (05:41)
[2020-04-09] MEDS: Levothyroxine 150 MCG Tablet PO (05:44)
--- NOTE | 2020-04-09 06:42 | PCM.PN.INT ---
Subjective: Patient did well overnight. No bowel movements have been reported since patient had her colonoscopy. Patient states her abdominal pain is largely resolved. Patient still has some mild pain with deep inhalation, but states this is nothing like before. General: Alert, Oriented x3, Cooperative, No apparent distress HEENT: Atraumatic, PERRLA, EOMI, Normocephalic, - - No scleral icterus or injection noted Oral: Moist Mucosa, No Gingival or Mucosal Lesions/ Ulcerations Neck: Supple, No JVD, No Nodes, Trachea Midline Lungs: No rhonchi, No wheeze, No rales, Diminished, - - Symmetric expansion. Cardiovascular: Regular rate, Regular Rhythm, Normal S1, Normal S2, No murmurs, No rub noted, No Gallop Abdomen: Bowel Sounds Present, Soft, Non Tender, Non-Distended, Obese Extremities: No clubbing, No cyanosis, Edema Skin: No rashes, No breakdown Musculoskeletal: No Tenderness to Palpation of Joints or Extremities Lymphatic: No Cervical, Supraclavicular, or Inguinal Adenopathy Neurological: Cranial nerves II-XII grossly intact, Neuro grossly intact, Motor Exam 5/5 strength throughout Psych/Mental Status: Alert and oriented to time, place, person, mood and affect Vital Signs Temp Pulse Resp BP Pulse Ox 36.6 C 71 14 129/73 H 95 04/09/20 04:00 04/09/20 06:00 04/09/20 06:00 04/09/20 06:00 04/09/20 06:00 Oxygen Flow Rate (L/min) 2 Oxygen Delivery Method Room Air Weight: 132.1 kg Body Mass Index (BMI) 53.4 Orthostatic Vital Signs Start: 04/06/20 22:13 Freq: q24h Status: Active Protocol: Activity Type Activity Date Activity User E-Sign Co-Sign Detail Recorded Client Recorded Date Recorded By Document 04/06/20 22:13 [facility] [id number] 04/06/20 22:14 [facility] 04/06/20 22:13 Orthostatic Vitals Sitting -Blood Pressure (90/60-120/80) 109/69 -Extremity Use Right Arm -Pulse Rate (60-100) 92 Lying -Blood Pressure (90/60-120/80) 135/60 H -Extremity Use Right Arm -Pulse Rate (60-100) 81 Intake and Output for Last 24 Hours 04/07/20 04/08/20 04/09/20 23:59 23:59 23:59 Intake Total 7525.00 / 7525.00 620 / 620 125 / 125 Output Total 2300 / 2300 1300 / 1300 350 / 350 Balance 5225.00 / 5225.00 -680 / -680 -225 / -225 Labs (Last 48 Hours) 04/06/20 04/07/20 04/07/20 08:17 10:30 16:55 WBC 8.6 RBC 2.74 L Hgb 7.8 L 8.2 L Hct 24.0 L 24.7 L MCV 90.1 MCH 29.9 MCHC 33.2 RDW Std Deviation 52.9 H RDW Coeff of Omid 16.3 H Plt Count 249 MPV 10.2 Immature Gran % (Auto) 0.500 Neut % (Auto) 71.7 H Lymph % (Auto) 17.0 L [place] % (Auto) 10.3 H Eos % (Auto) 0.2 Baso % (Auto) 0.3 Absolute Neuts (auto) 6.2 Absolute Lymphs (auto) 1.46 Nucleated RBC % 0 Sodium Potassium Chloride Carbon Dioxide Anion Gap BUN Creatinine Estim Creat Clear Calc Est GFR (MDRD) Af Amer Est GFR (MDRD) Non-Af BUN/Creatinine Ratio Glucose Calcium Total Bilirubin AST ALT Alkaline Phosphatase Total Protein Albumin Globulin Albumin/Globulin Ratio Crossmatch See Detail 04/07/20 04/07/20 04/07/20 16:55 21:51 22:10 WBC RBC Hgb Cancelled Cancelled 10.7 L Hct Cancelled Cancelled 32.9 L MCV MCH MCHC RDW Std Deviation RDW Coeff of Omid Plt Count MPV Immature Gran % (Auto) Neut % (Auto) Lymph % (Auto) [place] % (Auto) Eos % (Auto) Baso % (Auto) Absolute Neuts (auto) Absolute Lymphs (auto) Nucleated RBC % Sodium Potassium Chloride Carbon Dioxide Anion Gap BUN Creatinine Estim Creat Clear Calc Est GFR (MDRD) Af Amer Est GFR (MDRD) Non-Af BUN/Creatinine Ratio Glucose Calcium Total Bilirubin AST ALT Alkaline Phosphatase Total Protein Albumin Globulin Albumin/Globulin Ratio Crossmatch 04/08/20 04/08/20 04/08/20 04:20 04:20 13:38 WBC 10.0 RBC 2.94 L Hgb 8.8 L 8.1 L Hct 26.3 L 23.5 L MCV 89.5 MCH 29.9 MCHC 33.5 RDW Std Deviation 52.6 H RDW Coeff of Omid 16.1 H Plt Count 306 MPV 9.7 Immature Gran % (Auto) Neut % (Auto) Lymph % (Auto) [place] % (Auto) Eos % (Auto) Baso % (Auto) Absolute Neuts (auto) Absolute Lymphs (auto) Nucleated RBC % Sodium 143 Potassium 3.4 L Chloride 112 H Carbon Dioxide 27.0 Anion Gap 4 L BUN 5 L Creatinine 0.61 Estim Creat Clear Calc 91.14 Est GFR (MDRD) Af Amer 135 Est GFR (MDRD) Non-Af 111 BUN/Creatinine Ratio 8.2 L Glucose 112 H Calcium 7.5 L Total Bilirubin AST ALT Alkaline Phosphatase Total Protein Albumin Globulin Albumin/Globulin Ratio Crossmatch 04/08/20 04/09/20 04/09/20 18:42 00:13 04:20 WBC 7.7 RBC 2.58 L Hgb 9.3 L 8.1 L 7.7 L Hct 29.2 L 23.9 L 23.5 L MCV 91.1 MCH 29.8 MCHC 32.8 RDW Std Deviation 53.4 H RDW Coeff of Omid 16.1 H Plt Count 294 MPV 9.5 Immature Gran % (Auto) 0.700 Neut % (Auto) 56.2 Lymph % (Auto) 30.7 [place] % (Auto) 9.8 Eos % (Auto) 1.8 Baso % (Auto) 0.8 Absolute Neuts (auto) 4.3 Absolute Lymphs (auto) 2.36 Nucleated RBC % 0 Sodium Potassium Chloride Carbon Dioxide Anion Gap BUN Creatinine Estim Creat Clear Calc Est GFR (MDRD) Af Amer Est GFR (MDRD) Non-Af BUN/Creatinine Ratio Glucose Calcium Total Bilirubin AST ALT Alkaline Phosphatase Total Protein Albumin Globulin Albumin/Globulin Ratio Crossmatch 04/09/20 04:20 WBC RBC Hgb Hct MCV MCH MCHC RDW Std Deviation RDW Coeff of Omid Plt Count MPV Immature Gran % (Auto) Neut % (Auto) Lymph % (Auto) [place] % (Auto) Eos % (Auto) Baso % (Auto) Absolute Neuts (auto) Absolute Lymphs (auto) Nucleated RBC % Sodium 142 Potassium 3.2 L Chloride 111 H Carbon Dioxide 27.0 Anion Gap 4 L BUN 5 L Creatinine 0.63 Estim Creat Clear Calc 88.25 Est GFR (MDRD) Af Amer 130 Est GFR (MDRD) Non-Af 108 BUN/Creatinine Ratio 7.9 L Glucose 80 Calcium 7.4 L Total Bilirubin 0.30 AST 8 L ALT 12 L Alkaline Phosphatase 48 Total Protein 5.5 L Albumin 2.0 L Globulin 3.5 Albumin/Globulin Ratio 0.6 L Crossmatch Microbiology 04/06/20 18:35 Stool Enteric Bacteriology - Final 04/06/20 18:35 Stool C. difficile DNA Amplification - Final Medical Necessity - Tobacco Use Smoking Status: Never smoker Tobacco Use: Non-smoker Assessment/Plan All Active Problems (Last Reviewed 04/06/20 @ 14:08 by Zaria TEJADA, PA-C) Colitis (Acute) Rectal bleeding (Acute) Acute appendicitis (Resolved) COVID-19 (Resolved) RECOMMENDATIONS: 1. Await response to surgical recommendations 2. Continue to hold anticoagulation 3. Hemodynamically stable on room air. Will sign off from a critical care perspective 4. Continue to monitor patient clinically for orthostatic changes IMPRESSIONS: 1. Hemorrhagic shock secondary to acute blood loss anemia secondary to probable GI bleed Patient reportedly had an ulcer on colonoscopy that was thought to be the source of GI bleeding. Patient has not had another bowel movement at this time. Patient has remained hemodynamically stable since her colonoscopy. H&H is slightly decreased, but no active blood loss is noted. Given hemodynamic stability, likely okay to place transfusion goal at 7 g of hemoglobin. 2. Acute descending colitis Patient with recent surgery of the appendix with concomitant Covid positive status. Patient is currently normotensive and C. difficile was negative. Continue with empiric antibiotics per surgery. We will hold on volume resuscitation for now as blood pressures appear to be appropriate. 3. Hypertension/recent ruptured appendicitis/hypothyroidism/morbid obesity Complicates care, management, recovery and prognosis. Hold baseline antihypertensives. Okay to continue Synthroid. Inpatient E&M: 18296 Subs Hosp L2
--- NOTE | 2020-04-09 06:46 | PN_ITS ---
Patient Problems: Active and Suspected Problems (Last Reviewed 04/06/20 @ 14:08 by Zaria TEJADA, PAJoseph) Colitis (Acute) Rectal bleeding (Acute) Subjective: Patient overnight with no acute events per self and per nursing report. Patient this a.m. with initially flatus however had onset of bowel movements with no significant blood noted with allowance of clear liquids with toleration. Patient notes significant improvement and complete resolution abdominal pain. Discussed with general surgery and amenable to transition to PCU status. Patient denies fevers, chills, nausea, emesis, chest pain or dyspnea. Objective: Physical Examination: General: awake, alert, oriented x 3 and cooperative, seated upright in ICU bed, feeling improved, no bloody stools overnight. Skin: More pale color, normal turgor, no icterus, no cyanosis, abdominal incisions healing well. HEENT: AT/NC, EOMI, PERRLA, MMM. Lungs: CTA bilaterally, moderate effort, moderate decrease BL bases, no rales, ronchi or wheezing. Heart: Regular rate with regular rhythm; no gallop, rub audible. Abdomen: soft, morbidly obese, nontender to palpation, no rebound or guarding, unable to discern distention but morbidly obese habitus makes examination difficult, lysing bowel sounds. Neurological: Patient awake, alert, oriented as noted; cognitive function is baseline intact; pupils equally reactive to light and accomodation; cranial nerves II-XII grossly normal, moving all 4 extremities, no focal deficits, strength improving, moderately globally decreased given recent events over the last 12 hours. Psychiatric: affect appears improved, no acute evidence of depressive or anxiety feelings. Vitals/I&O's: Vital Signs Temp Pulse Resp BP Pulse Ox 97.8 F 71 14 129/73 H 95 04/09/20 04:00 04/09/20 06:00 04/09/20 06:00 04/09/20 06:00 04/09/20 06:00 Oxygen Flow Rate (L/min) 2 Oxygen Delivery Method Room Air Weight: 291 lb 3.69 oz Body Mass Index (BMI) 53.4 Orthostatic Vital Signs Start: 04/06/20 22:13 Freq: q24h Status: Active Protocol: Activity Type Activity Date Activity User E-Sign Co-Sign Detail Recorded Client Recorded Date Recorded By Document 04/06/20 [facility]13 [id number] 04/06/20 22:14 [facility] 04/06/20 22:13 Orthostatic Vitals Sitting -Blood Pressure (90/60-120/80 mm Hg) 109/69 -Extremity Use Right Arm -Pulse Rate (60-100 beats/min) 92 Lying -Blood Pressure (90/60-120/80 mm Hg) 135/60 H -Extremity Use Right Arm -Pulse Rate (60-100 beats/min) 81 Intake and Output for Last 24 Hours 04/07/20 04/08/20 04/09/20 23:59 23:59 23:59 Intake Total 7525.00 / 7525.00 620 / 620 125 / 125 Output Total 2300 / 2300 1300 / 1300 350 / 350 Balance 5225.00 / 5225.00 -680 / -680 -225 / -225 Microbiology Past 72 Hours 04/06/20 18:35 Stool Enteric Bacteriology - Final 04/06/20 18:35 Stool C. difficile DNA Amplification - Final Laboratory Results 04/08/20 13:38: Hgb 8.1 L, Hct 23.5 L 04/08/20 18:42: Hgb 9.3 L, Hct 29.2 L 04/09/20 00:13: Hgb 8.1 L, Hct 23.9 L 04/09/20 04:20: WBC 7.7, RBC 2.58 L, Hgb 7.7 L, Hct 23.5 L, MCV 91.1, MCH 29.8, MCHC 32.8, RDW Std Deviation 53.4 H, RDW Coeff of Omid 16.1 H, Plt Count 294, MPV 9.5, Immature Gran % (Auto) 0.700, Neut % (Auto) 56.2, Lymph % (Auto) 30.7, [place] % (Auto) 9.8, Eos % (Auto) 1.8, Baso % (Auto) 0.8, Absolute Neuts (auto) 4.3, Absolute Lymphs (auto) 2.36, Nucleated RBC % 0 04/09/20 04:20: Sodium 142, Potassium 3.2 L, Chloride 111 H, Carbon Dioxide 27.0, Anion Gap 4 L, BUN 5 L, Creatinine 0.63, Estim Creat Clear Calc 88.25, Est GFR (MDRD) Af Amer 130, Est GFR (MDRD) Non-Af 108, BUN/Creatinine Ratio 7.9 L, Glucose 80, Calcium 7.4 L, Total Bilirubin 0.30, AST 8 L, ALT 12 L, Alkaline Phosphatase 48, Total Protein 5.5 L, Albumin 2.0 L, Globulin 3.5, Albumin/Globulin Ratio 0.6 L Current Medications Acetaminophen (Acetaminophen 325 Mg Tablet) 650 mg PO Q6H PRN PRN PRN Reason: Pain Score 1-10/Temp > 100.7 F Al Hydroxide/Mg Hydroxide (Mag Hydrox/Al Hydrox/Simeth 30 Ml Udc) 30 ml PO Q6H PRN PRN PRN Reason: Gastric Burning Albuterol Sulfate (Albuterol 2.5 Mg/3 Ml Vial.Neb.) 2.5 mg INHALATION Q4H PRN PRN Reason: SHORTNESS OF BREATH Guaifenesin (Guaifenesin 10 Ml Udc (200mg/10ml)) 20 ml PO Q4H PRN PRN PRN Reason: COUGH Piperacillin Sod/Tazobactam (Sod 3.375 gm/ Sodium Chloride) 50 mls @ 12.5 mls/hr IV Q8 [facility] Last Admin: 04/09/20 05:41 Dose: 12.5 mls/hr Documented by: Sodium Chloride () 500 mls @ 15 mls/hr IV PRN PRN PRN Reason: Blood Transfusion Last Infusion: 04/07/20 05:38 Dose: Infused Documented by: Pantoprazole Sodium 40 mg/ (Sodium Chloride) 110 mls @ 330 mls/hr IV Q12 [facility] Last Infusion: 04/08/20 21:32 Dose: Infused Documented by: Sodium Chloride () 1,000 mls @ 50 mls/hr IV .Q20H [facility] Last Admin: 04/08/20 20:02 Dose: 50 mls/hr Documented by: Potassium Chloride () 10 meq in 100 mls @ 100 mls/hr IV BOLUS Q1H [facility] Stop: 04/09/20 08:29 Last Infusion: 04/09/20 05:50 Dose: 50 mls/hr Documented by: Levothyroxine Sodium (Levothyroxine 150 Mcg Tablet) 150 mcg PO DAILY@0600 [facility] Last Admin: 04/09/20 05:44 Dose: 150 mcg Documented by: Melatonin (Melatonin 3 Mg Tablet) 3 mg PO QHS PRN PRN PRN Reason: INSOMNIA Morphine Sulfate (Morphine 2 Mg/Ml Syringe) 2 mg IV Q3H PRN PRN PRN Reason: Pain Score 6-10 Nitroglycerin (Nitroglycerin (Inpatient Use) 0.4 Mg Tab.Subl) 0.4 mg SUBLINGUAL Q5M PRN PRN Reason: CARDIAC/CHEST PAIN Ondansetron HCl (Ondansetron 4 Mg/2 Ml Vial) 4 mg IV Q8H PRN PRN PRN Reason: NAUSEA/VOMITING Last Admin: 04/07/20 20:19 Dose: 4 mg Documented by: Oxycodone HCl (Oxycodone 5 Mg Tablet) 5 mg PO Q4H PRN PRN PRN Reason: Pain Score 4-5 Prochlorperazine Edisylate (Prochlorperazine 10 Mg/2 Ml Vial) 5 mg IV Q4H PRN PRN PRN Reason: Breakthrough nausea/vomiting Sodium Chloride (0.9% Saline Lock 10 Ml Syringe) 10 - 40 ml IV UD PRN PRN Reason: SALINE FLUSH Last Admin: 04/07/20 21:03 Dose: 10 ml Documented by: Throat Lozenges (Benzocaine/Menthol 1 Lozenge) 1 lozenge MUCOUS MEM Q2H PRN PRN PRN Reason: SORE THROAT STROKE Vital Signs/Narrative: Vital Signs Temp Pulse Resp BP Pulse Ox 04/09/20 06:00 71 14 129/73 H 95 04/09/20 05:00 78 19 H 121/60 H 93 04/09/20 04:00 97.8 F 77 22 H 127/61 H 98 04/09/20 03:00 75 22 H 131/63 H 96 Medical Necessity - Tobacco Use Smoking Status: Never smoker Tobacco Use: Non-smoker Assessment/Plan All Active Problems (Last Reviewed 04/06/20 @ 14:08 by Zaria TEJADA PA-C) Colitis (Acute) Rectal bleeding (Acute) Acute appendicitis (Resolved) COVID-19 (Resolved) The patient is a 44 y/o F w/ PMHx: GERD with peptic ulcer history, HTN, HLD, Obesity, recent COVID + 03/24/20 s/p symptom onset 03/14/2020 with fevers, mild cough with 03/24/2020 evaluation with at that time right sided abdominal pain with eventual appendectomy for gangrenous appendicitis to be perforated who now re-presents to the [facility] ED on 04/06/20 set of rectal bleeding with bowel movements, loose (3-4x daily x 48 hours) at 4 AM noted to be intermittent with at least 3-4 episodes but progressively worsening with nausea without emesis with ongoing right sided abdominal discomfort, moderate in severity well as periumbilical discomfort, described as cramping. 1. Acute descending colitis with resulting Acute GI bleed with Acute Blood Anemia with resulting Acute Hemorrhagic Shock complicated by recent appendicitis status post appendectomy: CT A/P w/ evidence of sigmoid colitis. Work-up in the ED included 7.9, heart 98, BP 126/71, respiratory rate 14, 90% on 2 L nasal cannula with noted 97% on room air, seated with WBC 15.6, hemoglobin 13.1, platelet 42 with left shift, CMP with glucose 117 otherwise not marked appearing, this is unremarkable, CT abdomen and pelvis with evidence recent status post appendectomy with postsurgical changes right lower quadrant with inhomogenous appearance of the cecum with findings suggestive of submucosal pneumatosis with evidence of colitis involving the descending colon up to the region of the hepatic flexure with evidence of mesenteric adenopathy in the right lower quadrant. Patient initially admitted to the medical surgical floor, Covid panel labs with significantly elevated dimer although likely in large part secondary to patient recent operative interventions and inflammation, given recent CT abdomen and pelvis unable to perform CT PA therefore transiently placed on Lovenox and aspirin was administered in the ED given some concern for ischemia as possible etiology given recent Covid status. 04/06-04/07/20 worsened status, overnight with increased bleeding, hypotension with transition to the ICU, d/c lovenox/asa given onset evidence diffuse BRB with GI bleed. Hemoglobin trending with 04/06/2020 admission 13.1 -> 7.8 w/ an addition 2 unit PRBC administration with repeat 04/08/20 Hgb 8.8-->04/09/20 Hgb 7.7 but VS stable. 04/09/[address] C-scope per Dr. Pérez evidence of diverticulosis of the entire colon with a solitary single ulcer at the ileocecal valve noted to be inflamed with slight oozing and stenosis with biopsy obtained and epinephrine injected. 04/09/20 BM with no recurrent BRBPR, stable VS, clearance per Surgery for PCU transition. 2. Recent Acute Viral Syndrome, COVID-19: Patient prior to recent admission OR with testing positive at that time mild symptoms starting 03/14/2020 with fever as well as cough, resolved. Upon ED presentation with acute presentation general surgery noted concern for possible presentation associate with Covid status, obtained Covid panel including D-dimer, procalcitonin, CRP, CPK, Ferritin, LDH cautious with noted ferritin 140, LDH 208, CRP 57.3, procalcitonin 0.04, D-dimer 3.97 as well as lactic acid given abdominal complaints and aty pical presentation noted to be 0.6. Initially placed on therapeutic Lovenox pending CTPA however discontinued secondary to onset of GI bleeding is noted #1. Following stability patient underwent CTPA 04/07/2020 a.m. with no obvious pulmonary emboli noted and expected post Covid changes. 3. Recent acute ruptured gangrenous appendicitis: Patient completed antibiotic Augmentin therapy initially IV inpatient status post with laparoscopic appendectomy with drainage, general surgery consulted and following currently. Patient currently as noted #1 maintained on IV Zosyn. 4. Hypertension: Holding home regimen given acute hemorrhagic shock, blood pressure is improving, add back once appropriate. 5. Hypothyroidism: Continue home synthroid regimen. 6. Morbid Obesity: Weight loss and lifestyle changes encouraged. 7. GERD with history of peptic ulcer disease: IV Protonix-->oral protonix. 8. DVT prophylaxis: SCDs, no chemoprophylaxis given noted #1. 9. Code status: Full Code status. Inpatient E&M: 42389 Subs Hosp L2
[2020-04-09] MEDS: Potassium Chloride 10mEq/100mL 10 MEQ/100 ML IV.SOLN. 50 MEQ IV BOLUS ×2 (07:33→09:28)
[2020-04-09] MEDS: Ensure Clear 120 ML Liquid PO ×3 (14:30→22:26)
[2020-04-09 16:37] LABS: Hematocrit 24.8 % (37-47); Hemoglobin 8.2 g/dL (12.0-15.0)
[2020-04-09] MEDS: Pantoprazole Sodium 40 MG Tablet PO (22:26)
[2020-04-10 03:00] VITALS: PULSE 73
[2020-04-10 04:15] VITALS: BP 120/51; PULSE 76; RESP 17; TEMP 36.9; O2SAT 95
[2020-04-10] MEDS: 0.9% Normal Saline 1,000 ML 30 ML IV (04:18)
[2020-04-10] MEDS: Levothyroxine 150 MCG Tablet PO (05:02)
[2020-04-10] MEDS: 0.9% Saline Lock 10 ML Syringe IV (05:02)
[2020-04-10 06:36] VITALS: PULSE 76
--- NOTE | 2020-04-10 07:07 | PN_ITS ---
Patient Problems: Active and Suspected Problems (Last Reviewed 04/06/20 @ 14:08 by Zaria TEJADA PA-C) Colitis (Acute) Rectal bleeding (Acute) Vitals/I&O's: Vital Signs Temp Pulse Resp BP Pulse Ox 98.5 F 76 17 120/51 L 95 04/10/20 04:15 04/10/20 06:36 04/10/20 04:15 04/10/20 04:15 04/10/20 04:15 Oxygen Flow Rate (L/min) 2 Oxygen Delivery Method Room Air Weight: 291 lb 3.69 oz Body Mass Index (BMI) 53.4 Intake and Output for Last 24 Hours 04/08/20 04/09/20 04/10/20 23:59 23:59 23:59 Intake Total 620 / 620 2095.00 / 2215.00 230 / 230 Output Total 1300 / 1300 850 / 850 Balance -680 / -680 1245.00 / 1365.00 230 / 230 Microbiology Past 72 Hours 04/06/20 18:35 Stool Enteric Bacteriology - Final 04/06/20 18:35 Stool C. difficile DNA Amplification - Final Laboratory Results 04/09/20 16:08: Hgb 8.2 L, Hct 24.8 L Current Medications Acetaminophen (Acetaminophen 325 Mg Tablet) 650 mg PO Q6H PRN PRN PRN Reason: Pain Score 1-10/Temp > 100.7 F Al Hydroxide/Mg Hydroxide (Mag Hydrox/Al Hydrox/Simeth 30 Ml Udc) 30 ml PO Q6H PRN PRN PRN Reason: Gastric Burning Albuterol Sulfate (Albuterol 2.5 Mg/3 Ml Vial.Neb.) 2.5 mg INHALATION Q4H PRN PRN Reason: SHORTNESS OF BREATH Guaifenesin (Guaifenesin 10 Ml Udc (200mg/10ml)) 20 ml PO Q4H PRN PRN PRN Reason: COUGH Piperacillin Sod/Tazobactam (Sod 3.375 gm/ Sodium Chloride) 50 mls @ 12.5 mls/hr IV Q8 [facility] Last Admin: 04/10/20 05:00 Dose: 12.5 mls/hr Documented by: Sodium Chloride () 500 mls @ 15 mls/hr IV PRN PRN PRN Reason: Blood Transfusion Last Infusion: 04/07/20 05:38 Dose: Infused Documented by: Sodium Chloride () 1,000 mls @ 30 mls/hr IV .[id number] [facility] Last Admin: 04/10/20 04:18 Dose: 30 mls/hr Documented by: Levothyroxine Sodium (Levothyroxine 150 Mcg Tablet) 150 mcg PO DAILY@0600 [facility] Last Admin: 04/10/20 05:02 Dose: 150 mcg Documented by: Melatonin (Melatonin 3 Mg Tablet) 3 mg PO QHS PRN PRN PRN Reason: INSOMNIA Morphine Sulfate (Morphine 2 Mg/Ml Syringe) 2 mg IV Q3H PRN PRN PRN Reason: Pain Score 6-10 Nitroglycerin (Nitroglycerin (Inpatient Use) 0.4 Mg Tab.Subl) 0.4 mg SUBLINGUAL Q5M PRN PRN Reason: CARDIAC/CHEST PAIN Nutritional Formula (Lactose Free) (Ensure Clear 120 Ml Liquid) 120 ml PO 4X/DAY [facility] Last Admin: 04/09/20 22:26 Dose: 120 ml Documented by: Ondansetron HCl (Ondansetron 4 Mg/2 Ml Vial) 4 mg IV Q8H PRN PRN PRN Reason: NAUSEA/VOMITING Last Admin: 04/07/20 20:19 Dose: 4 mg Documented by: Oxycodone HCl (Oxycodone 5 Mg Tablet) 5 mg PO Q4H PRN PRN PRN Reason: Pain Score 4-5 Pantoprazole Sodium (Pantoprazole Sodium 40 Mg Tablet) 40 mg PO BID [facility] Last Admin: 04/09/20 22:26 Dose: 40 mg Documented by: Potassium Chloride (Potassium Ch[facility]ide 20 Meq Tablet) [facility] Admin: 04/09/20 17:38 Dose: 20 meq Documented by: Prochlorperazine Edisylate (Prochlorperazine 10 Mg/2 Ml Vial) 5 mg IV Q4H PRN PRN PRN Reason: Breakthrough nausea/vomiting Sodium Chloride (0.9% Saline Lock 10 Ml Syringe) 10 - 40 ml IV UD PRN PRN Reason: SALINE FLUSH Last Admin: 04/10/20 05:02 Dose: 10 ml Documented by: Throat Lozenges (Benzocaine/Menthol 1 Lozenge) 1 lozenge MUCOUS MEM Q2H PRN PRN PRN Reason: SORE THROAT STROKE Vital Signs/Narrative: Vital Signs Temp Pulse Resp BP Pulse Ox 04/10/20 06:36 76 04/10/20 04:15 98.5 F 76 17 120/51 L 95 Medical Necessity - Tobacco Use Smoking Status: Never smoker Tobacco Use: Non-smoker Assessment/Plan All Active Problems (Last Reviewed 04/06/20 @ 14:08 by Zaria TEJADA, PA-C) Colitis (Acute) Rectal bleeding (Acute) Acute appendicitis (Resolved) COVID-19 (Resolved)
[2020-04-10 07:50] LABS: Absolute Lymphocyte Count 2.56 X10^3/uL (0.83-4.51); Absolute Neutrophil Count 4.8 X10^3/uL (2.0-7.7); Basophil# 0.05 X10^3/uL; Basophil% 0.6 % (0-1); Eosinophil# 0.11 X10^3/uL; Eosinophils% 1.3 % (0-5); Hematocrit 25.9 % (37-47); Hemoglobin 8.2 g/dL (12.0-15.0); Lymphocyte # 2.56 X10^3/ul (4.0); Lymphocyte % 30.6 % (19-41); Mean Corp Hgb Conc 31.7 g/dL (32-36); Mean Corpuscular Hgb 29.7 pg (27.0-32.0); Mean Corpuscular Volume 93.8 fL (81-99); Mean Platelet Vol. 9.7 fl (6.2-12.0); Monocyte# 0.77 X10^3/uL; Monocyte% 9.2 % (0-10); NRBC Flagged by Analyzer 0.4 % (0-5); Neutrophil # 4.78 X10^3/uL (2.7-7.7); Neutrophil % 57.1 % (47-70); Platelet Count 327 K/mm3 (150-450); RBC Distribution Width CV 15.8 % (11.6-14.6); RBC Distribution Width SD 53.2 fl (35.1-43.9); Red Blood Count 2.76 M/mm3 (4.2-5.4); White Blood Count 8.4 K/mm3 (4.4-11.0)
[2020-04-10 07:55] VITALS: O2SAT 93
--- NOTE | 2020-04-10 08:14 | PCM.PN.SRG ---
Patient Problems: Active and Suspected Problems (Last Reviewed 04/06/20 @ 14:08 by Zaria TEJADA PA-C) Colitis (Acute) Rectal bleeding (Acute) Subjective: Patient is doing well with no abdominal pain. She reports that she had a bowel movement yesterday evening which was a little dark but contain no blood and was normal when she wiped. - Physical Exam Vitals/I&O's: Vital Signs Temp Pulse Resp BP Pulse Ox 98.5 F 76 17 120/51 L 93 04/10/20 04:15 04/10/20 06:36 04/10/20 04:15 04/10/20 04:15 04/10/20 07:55 Oxygen Flow Rate (L/min) 2 Oxygen Delivery Method Room Air Weight: 291 lb 3.69 oz Body Mass Index (BMI) 53.4 Intake and Output for Last 24 Hours 04/08/20 04/09/20 04/10/20 23:59 23:59 23:59 Intake Total 620 / 620 2095.00 / 2215.00 230 / 230 Output Total 1300 / 1300 850 / 850 Balance -680 / -680 1245.00 / 1365.00 230 / 230 General: Alert, Oriented x3 Abdomen: Soft, Non Tender, Non-Distended Microbiology Past 72 Hours 04/06/20 18:35 Stool Enteric Bacteriology - Final 04/06/20 18:35 Stool C. difficile DNA Amplification - Final Laboratory Results 04/09/20 16:08: Hgb 8.2 L, Hct 24.8 L 04/10/20 06:44: WBC 8.4, RBC 2.76 L, Hgb 8.2 L, Hct 25.9 L, MCV 93.8, MCH 29.7, MCHC 31.7 L, RDW Std Deviation 53.2 H, RDW Coeff of Omid 15.8 H, Plt Count 327, MPV 9.7, Immature Gran % (Auto) 1.200 H, Neut % (Auto) 57.1, Lymph % (Auto) 30.6, [place] % (Auto) 9.2, Eos % (Auto) 1.3, Baso % (Auto) 0.6, Absolute Neuts (auto) 4.8, Absolute Lymphs (auto) 2.56, Nucleated RBC % 0.4 04/10/20 06:44: Sodium Pending, Potassium Pending, Chloride Pending, Carbon Dioxide Pending, Anion Gap Pending, BUN Pending, Creatinine Pending, Est GFR (MDRD) Af Amer Pending, Est GFR (MDRD) Non-Af Pending, BUN/Creatinine Ratio Pending, Glucose Pending, Calcium Pending, Total Bilirubin Pending, AST Pending, ALT Pending, Alkaline Phosphatase Pending, Total Protein Pending, Albumin Pending Current Medications Acetaminophen (Acetaminophen 325 Mg Tablet) 650 mg PO Q6H PRN PRN PRN Reason: Pain Score 1-10/Temp > 100.7 F Al Hydroxide/Mg Hydroxide (Mag Hydrox/Al Hydrox/Simeth 30 Ml Udc) 30 ml PO Q6H PRN PRN PRN Reason: Gastric Burning Albuterol Sulfate (Albuterol 2.5 Mg/3 Ml Vial.Neb.) 2.5 mg INHALATION Q4H PRN PRN Reason: SHORTNESS OF BREATH Guaifenesin (Guaifenesin 10 Ml Udc (200mg/10ml)) 20 ml PO Q4H PRN PRN PRN Reason: COUGH Piperacillin Sod/Tazobactam (Sod 3.375 gm/ Sodium Chloride) 50 mls @ 12.5 mls/hr IV Q8 [facility] Last Admin: 04/10/20 05:00 Dose: 12.5 mls/hr Documented by: Sodium Chloride () 500 mls @ 15 mls/hr IV PRN PRN PRN Reason: Blood Transfusion Last Infusion: 04/07/20 05:38 Dose: Infused Documented by: Sodium Chloride () 1,000 mls @ 30 mls/hr IV .[id number] [facility] Last Admin: 04/10/20 04:18 Dose: 30 mls/hr Documented by: Levothyroxine Sodium (Levothyroxine 150 Mcg Tablet) 150 mcg PO DAILY@0600 [facility] Last Admin: 04/10/20 05:02 Dose: 150 mcg Documented by: Melatonin (Melatonin 3 Mg Tablet) 3 mg PO QHS PRN PRN PRN Reason: INSOMNIA Morphine Sulfate (Morphine 2 Mg/Ml Syringe) 2 mg IV Q3H PRN PRN PRN Reason: Pain Score 6-10 Nitroglycerin (Nitroglycerin (Inpatient Use) 0.4 Mg Tab.Subl) 0.4 mg SUBLINGUAL Q5M PRN PRN Reason: CARDIAC/CHEST PAIN Nutritional Formula (Lactose Free) (Ensure Clear 120 Ml Liquid) 120 ml PO 4X/DAY [facility] Last Admin: 04/09/20 22:26 Dose: 120 ml Documented by: Ondansetron HCl (Ondansetron 4 Mg/2 Ml Vial) 4 mg IV Q8H PRN PRN PRN Reason: NAUSEA/VOMITING Last Admin: 04/07/20 20:19 Dose: 4 mg Documented by: Oxycodone HCl (Oxycodone 5 Mg Tablet) 5 mg PO Q4H PRN PRN PRN Reason: Pain Score 4-5 Pantoprazole Sodium (Pantoprazole Sodium 40 Mg Tablet) 40 mg PO BID [facility] Last Admin: 04/09/20 22:26 Dose: 40 mg Documented by: Potassium Chloride (Potassium Chloride 20 Meq Tablet) 20 meq PO BIDCM [facility] Last Admin: 04/09/20 17:38 Dose: 20 meq Documented by: Prochlorperazine Edisylate (Prochlorperazine 10 Mg/2 Ml Vial) 5 mg IV Q4H PRN PRN PRN Reason: Breakthrough nausea/vomiting Sodium Chloride (0.9% Saline Lock 10 Ml Syringe) 10 - 40 ml IV UD PRN PRN Reason: SALINE FLUSH Last Admin: 04/10/20 05:02 Dose: 10 ml Documented by: Throat Lozenges (Benzocaine/Menthol 1 Lozenge) 1 lozenge MUCOUS MEM Q2H PRN PRN PRN Reason: SORE THROAT Medical Necessity - Tobacco Use Smoking Status: Never smoker Tobacco Use: Non-smoker Assessment/Plan All Active Problems (Last Reviewed 04/06/20 @ 14:08 by Zaria TEJADA, PA-C) Colitis (Acute) Rectal bleeding (Acute) Acute appendicitis (Resolved) COVID-19 (Resolved) 44-year-old female with GI bleeding 1. The patient reports no bleeding overnight. She had a normal bowel movement and her hemoglobin is stable. I recommend advancing her to a regular diet. She may be okay for discharge later today. Nathan Simon MD Pager: [facility] [address] [place] [address], [address] [place] [address] Office:
[2020-04-10] MEDS: Pantoprazole Sodium 40 MG Tablet PO (08:33)
[2020-04-10 08:34] VITALS: BP 113/78; PULSE 90; RESP 18; TEMP 36.9; O2SAT 96
--- NOTE | 2020-04-10 08:52 | DCINST_ITS ---
- Discharge Diagnoses Current Active Problems: Current Active and Chronic Problems (Last Reviewed 04/06/20 @ 14:08 by Zaria TEJADA PA-C) 1. Acute descending colitis with resulting Acute GI bleed with Acute Blood Anemia with resulting Acute Hemorrhagic Shock complicated by recent appendicitis status post appendectomy 2. Recent Acute Viral Syndrome, COVID-19 3. Recent acute ruptured gangrenous appendicitis 4. Hypertension 5. Hypothyroidism 6. Morbid Obesity 7. GERD with history of peptic ulcer disease 8. Paroxysmal ventricular tachycardia You will use the following diet at home:: Cardiac Your food should be the consistency of: Regular Your liquids should be the consistency of: Regular/Thin Discharge Activity: - - Please continue mild to moderate activity only until re- evaluation per Dr. Pérez. Call your doctor if you observe: Fever of 101 or Higher, Inability to urinate, Inability to have a bowel movement, Shortness of breath, Dizziness, Fainting spells, Chest pain, Uncontrolled pain, - - We have decreased your metoprolol regimen and continued your norvasc for blood pressure and your history of ventricular tachycardia. Please monitor your blood pressure and if needed hold these medications if they remain low normal, while also immediately letting your primary care physician know. Instructions: Lower GI Endoscopy, When You Have Gastrointestinal (GI) Bleeding, Anemia Additional Instructions: Please follow-up with your primary care physician and have repeat blood count (CBC) and basic metabolic panel. You were started on twice daily low dose potassium as your level was frequently low inpatient. Please have these repeat tests to assure stable hemoglobin and also to assure that your potassium level is not becoming elevated. This medication may only be needed short-term. AVOID any NSAID medications. Please monitor your blood pressure and if needed hold both your reduced metoprolol dose and norvasc regimen as needed. Notify your primary care physician if you need to hold these medications. Once your blood levels slowly improve you may need to increase your regimen again. Allergies/Adverse Reactions: Allergies No Known Allergies Allergy (Verified 04/06/20 07:53) Medications to take at Discharge amlodipine 5 mg tablet 5 mg PO DAILY 07/17/17 Levothyroxine Sodium [Synthroid] 150 mcg PO DAILY 03/24/20 Amox/Clavulanate Tablet [Augmentin Tablet] 875 mg PO Q12H #12 tab 04/10/20 Metoprolol(XL)Succ [Toprol Xl (Beta Mady)] 25 mg PO DAILY #30 tab 04/10/20 Pantoprazole Sodium [Protonix] 40 mg PO BID #60 tab 04/10/20 Potassium Chloride [K-Dur] 20 meq PO BIDCM #60 tab 04/10/20 The following prescriptions were given: Amox/Clavulanate Tablet [Augmentin Tablet] 875 mg PO Q12H #12 tab Transmission Status: Pending to [facility] Potassium Chloride [K-Dur] 20 meq PO BIDCM #60 tab Transmission Status: Pending to [facility] Pantoprazole Sodium [Protonix] 40 mg PO BID #60 tab Transmission Status: Pending to [facility] Metoprolol(XL)Succ [Toprol Xl (Beta Mady)] 25 mg PO DAILY #30 tab Transmission Status: Pending to [facility] Primary Care Physician: Pushpa Smith MD [Primary Care Provider] - Please follow up with your Primary Care Physician in: Follow-up within 2-3 days of discharge. Test Results: Test results from this visit will be discussed in further detail at your follow- up appointment, if applicable. Please Follow Up With: Rk Pérez MD When: Follow-up within 1-2 weeks, call earlier if concerns. Proposed Discharge Date: 04/10/20
[2020-04-10 08:55] LABS: ALB/GLOB Ratio 0.6 RATIO (0.9-2.4); AST(SGOT) 12 U/L (15-37); Alanine Aminotransfer ALT/SGPT 12 U/L (13-56); Alkaline Phosphatase 56 U/L (45-117); Anion Gap 6 (5-15); BUN 2 mg/dL (7-18); BUN/Creat Ratio 3.4 RATIO (10-20); Calcium,Total 7.8 mg/dL (8.5-10.1); Chloride 111 mmol/L (98-107); Creatinine, Serum 0.58 mg/dL (0.55-1.02); EST Glomerular Filtration Rate 118 mL/min (>60); Est Glom Filt Rate - Afr Amer 143 mL/min (>60); Estimated Creatinine Clearance 95.86 ml/min; Globulin 3.6 g/dL (2.2-4.2); Glucose 87 mg/dL (74-106); Potassium 3.7 mmol/L (3.5-5.1); Protein, Total 5.6 g/dL (6.4-8.2); Sodium Level 142 mmol/L (136-145)
--- NOTE | 2020-04-10 08:58 | DS.PCM_ITS ---
Discharge Date and Diagnosis - Problem List Patient Problems: Active and Suspected Problems (Last Reviewed 04/06/20 @ 14:08 by Zaria TEJADA PA-C) Colitis (Acute) Rectal bleeding (Acute) Date of Admission: 04/06/20 Date of Discharge: 04/10/20 - Primary Discharge Diagnosis Acute Problems: Active Problems (Last Reviewed 04/06/20 @ 14:08 by Zaria TEJADA PA-C) 1. Acute descending colitis with resulting Acute GI bleed with Acute Blood Anemia with resulting Acute Hemorrhagic Shock complicated by recent appendicitis status post appendectomy 2. Recent Acute Viral Syndrome, COVID-19 3. Recent acute ruptured gangrenous appendicitis 4. Hypertension 5. Hypothyroidism 6. Morbid Obesity 7. GERD with history of peptic ulcer disease 8. Paroxysmal ventricular tachycardia - Secondary Discharge Diagnosis Chronic Problems: Chronic Problems (Last Reviewed 04/06/20 @ 14:08 by Zaria TEJADA PA-C) Morbid obesity (Chronic) Hypothyroidism (Chronic) Obesity (BMI 30.0-34.9) (Chronic) Nonrheumatic mitral (valve) insufficiency (Chronic) Hyperlipidemia (Chronic) Paroxysmal ventricular tachycardia (Chronic) Hypertension (Chronic) Hospital Course and Treatment Dr. Wilkerson ICU Dr. Pérez and Dr. Simon, General surgery Operations: None Procedures: Blood transfusion, Colonoscopy, EKG Summary of Care Provided: The patient is a 44 y/o F w/ PMHx: GERD with peptic ulcer history, HTN, HLD, Obesity, recent COVID + 03/24/20 s/p symptom onset 03/14/2020 with fevers, mild cough with 03/24/2020 evaluation with at that time right sided abdominal pain with eventual appendectomy for gangrenous appendicitis to be perforated who now re-presented to the [facility] ED on 04/06/20 set of rectal bleeding with bowel movements, loose (3-4x daily x 48 hours) at 4 AM noted to be intermittent with at least 3-4 episodes but progressively worsening with nausea without emesis with ongoing right sided abdominal discomfort, moderate in severity well as periumbilical discomfort, described as cramping. Work-up in the ED included 7.9, heart 98, BP 126/71, respiratory rate 14, 90% on 2 L nasal cannula with noted 97% on room air, seated with WBC 15.6, hemoglobin 13.1, platelet 42 with left shift, CMP with glucose 117 otherwise not marked appearing, this is unremarkable, CT abdomen and pelvis with evidence recent status post appendectomy with postsurgical changes right lower quadrant with inhomogenous appearance of the cecum with findings suggestive of submucosal pneumatosis with evidence of colitis involving the descending colon up to the region of the hepatic flexure with evidence of mesenteric adenopathy in the right lower quadrant. Patient initially admitted to the medical surgical floor, Covid panel labs with significantly elevated dimer although likely in large part secondary to patient recent operative interventions and inflammation, given recent CT abdomen and pelvis unable to perform CT PA therefore transiently placed on Lovenox and aspirin was administered in the ED given some concern for ischemia as possible etiology given recent Covid status. 04/06-04/07/20 worsened status, overnight with increased bleeding, hypotension with transition to the ICU, d/c lovenox/asa given onset evidence diffuse BRB with GI bleed. Hemoglobin trending with 04/06/2020 admission 13.1 -> 7.8 w/ an addition 2 unit PRBC administration with repeat 04/08/20 Hgb 8.8-->04/09/20 Hgb 7.7 but VS stable. 04/09/[address] Dr[address] Pérez evidence of diverticulosis of the entire colon with a solitary single ulcer at the ileocecal valve noted to be inflamed with slight oozing and stenosis with biopsy obtained and epinephrine injected. 04/09/20 BM with no recurrent BRBPR, stable VS, clearance per Surgery for PCU transition. Patient continued to improve, tolerated diet advancement and given no further bleeding felt appropriate for discharge. Patient discharged to home in stable improved condition with augmentin to complete 10 day course abx therapy, Fe supplementation, reduced dosage of her metoprolol and continued norvasc given BPs, continued K supplementation given lower K serially with requested repeat CBC and BMP with PCP to assure Hgb stable and assure no elevated K levels as well as PPI BID. Patient to follow-up with PCP as well as Surgery. DAY OF DISCHARGE PROGRESS NOTE: Subjective: Patient without acute event overnight per self and nursing report. Patient with no rectal bleeding overnight. Patient remains stable with no associated lightheadedness or dizziness concurrently. Patient denies fever, chills, nausea, emesis, abdominal pain, chest pain or dyspnea. Patient agreeable to discharge to home understanding that if patient had any recurrent bleeding she was to immediately return. Patient will be discharged with follow- up with primary care physician within 3-5 days in addition to follow-up with general surgery within 1 to 2 weeks at patient discharge. Patient instructed to avoid any NSAID medications. Objective: T 98.5, heart rate 90, BP 113/78, respiratory rate 18, 96% on room air. Physical Examination: General: awake, alert, oriented x 3 and cooperative, seated upright in PCU bed, well appearing, eager for discharge. Skin: More pale color, normal turgor, no icterus, no cyanosis, abdominal incisions healing well. HEENT: AT/NC, EOMI, PERRLA, MMM. Lungs: CTA bilaterally, moderate effort, moderate decrease BL bases, no rales, ronchi or wheezing. Heart: Regular rate with regular rhythm; no gallop, rub audible. Abdomen: soft, morbidly obese, NTTP, unable to discern distention but morbidly obese habitus makes examination difficult, normalized BS. Neurological: Patient awake, alert, oriented as noted; cognitive function is baseline intact; pupils equally reactive to light and accomodation; cranial nerves II-XII grossly normal, moving all 4 extremities, no focal deficits, strength improving, mildly globally decreased. Psychiatric: affect appears normal, eager for discharge, no acute evidence of depressive or anxiety feelings. Assessment and Plan: Please see hospital summary above. Patient Problems: Active and Suspected Problems (Last Reviewed 04/06/20 @ 14:08 by Zaria TEJADA, PANamC) Colitis (Acute) Rectal bleeding (Acute) - Physical Exam Vitals/I&O's: Vital Signs Temp Pulse Resp BP Pulse Ox 98.5 F 90 18 113/78 96 04/10/20 08:34 04/10/20 08:34 04/10/20 08:34 04/10/20 08:34 04/10/20 08:34 Oxygen Flow Rate (L/min) 2 Oxygen Delivery Method Room Air Weight: 291 lb 3.69 oz Body Mass Index (BMI) 53.4 Intake and Output for Last 24 Hours 04/08/20 04/09/20 04/10/20 23:59 23:59 23:59 Intake Total 620 / 620 2095.00 / 2215.00 230 / 230 Output Total 1300 / 1300 850 / 850 Balance -680 / -680 1245.00 / 1365.00 230 / 230 Microbiology Past 72 Hours 04/06/20 18:35 Stool Enteric Bacteriology - Final 04/06/20 18:35 Stool C. difficile DNA Amplification - Final Laboratory Results 04/09/20 16:08: Hgb 8.2 L, Hct 24.8 L 04/10/20 06:44: WBC 8.4, RBC 2.76 L, Hgb 8.2 L, Hct 25.9 L, MCV 93.8, MCH 29.7, MCHC 31.7 L, RDW Std Deviation 53.2 H, RDW Coeff of Omid 15.8 H, Plt Count 327, MPV 9.7, Immature Gran % (Auto) 1.200 H, Neut % (Auto) 57.1, Lymph % (Auto) 30.6, Reagan % (Auto) 9.2, Eos % (Auto) 1.3, Baso % (Auto) 0.6, Absolute Neuts (auto) 4.8, Absolute Lymphs (auto) 2.56, Nucleated RBC % 0.4 04/10/20 06:44: Sodium 142, Potassium 3.7, Chloride 111 H, Carbon Dioxide 25.0, Anion Gap 6, BUN 2 L, Creatinine 0.58, Estim Creat Clear Calc 95.86, Est GFR (MDRD) Af Amer 143, Est GFR (MDRD) Non-Af 118, BUN/Creatinine Ratio 3.4 L, Glucose 87, Calcium 7.8 L, Total Bilirubin 0.10 L, AST 12 L, ALT 12 L, Alkaline Phosphatase 56, Total Protein 5.6 L, Albumin 2.0 L, Globulin 3.6, Albumin /Globulin Ratio 0.6 L Current Medications Acetaminophen (Acetaminophen 325 Mg Tablet) 650 mg PO Q6H PRN PRN PRN Reason: Pain Score 1-10/Temp > 100.7 F Al Hydroxide/Mg Hydroxide (Mag Hydrox/Al Hydrox/Simeth 30 Ml Udc) 30 ml PO Q6H PRN PRN PRN Reason: Gastric Burning Albuterol Sulfate (Albuterol 2.5 Mg/3 Ml Vial.Neb.) 2.5 mg INHALATION Q4H PRN PRN Reason: SHORTNESS OF BREATH Guaifenesin (Guaifenesin 10 Ml Udc (200mg/10ml)) 20 ml PO Q4H PRN PRN PRN Reason: COUGH Piperacillin Sod/Tazobactam (Sod 3.375 gm/ Sodium Chloride) 50 mls @ 12.5 mls/hr IV Q8 [facility] Last Admin: 04/10/20 05:00 Dose: 12.5 mls/hr Documented by: Sodium Chloride () 500 mls @ 15 mls/hr IV PRN PRN PRN Reason: Blood Transfusion Last Infusion: 04/07/20 05:38 Dose: Infused Documented by: Sodium Chloride () 1,000 mls @ 30 mls/hr IV .[id number] [facility] Last Admin: 04/10/20 04:18 Dose: 30 mls/hr Documented by: Levothyroxine Sodium (Levothyroxine 150 Mcg Tablet) 150 mcg PO DAILY@0600 [facility] Last Admin: 04/10/20 05:02 Dose: 150 mcg Documented by: Melatonin (Melatonin 3 Mg Tablet) 3 mg PO QHS PRN PRN PRN Reason: INSOMNIA Morphine Sulfate (Morphine 2 Mg/Ml Syringe) 2 mg IV Q3H PRN PRN PRN Reason: Pain Score 6-10 Nitroglycerin (Nitroglycerin (Inpatient Use) 0.4 Mg Tab.Subl) 0.4 mg SUBLINGUAL Q5M PRN PRN Reason: CARDIAC/CHEST PAIN Nutritional Formula (Lactose Free) (Ensure Clear 120 Ml Liquid) 120 ml PO 4X/DAY [facility] Last Admin: 04/09/20 22:26 Dose: 120 ml Documented by: Ondansetron HCl (Ondansetron 4 Mg/2 Ml Vial) 4 mg IV Q8H PRN PRN PRN Reason: NAUSEA/VOMITING Last Admin: 04/07/20 20:19 Dose: 4 mg Documented by: Oxycodone HCl (Oxycodone 5 Mg Tablet) 5 mg PO Q4H PRN PRN PRN Reason: Pain Score 4-5 Pantoprazole Sodium (Pantoprazole Sodium 40 Mg Tablet) 40 mg PO BID [facility] Last Admin: 04/10/20 08:33 Dose: 40 mg Documented by: Potassium Chloride (Potassium Chloride 20 Meq Tablet) 20 meq PO BIDCM [facility] Last Admin: 04/10/20 08:33 Dose: 20 meq Documented by: Prochlorperazine Edisylate (Prochlorperazine 10 Mg/2 Ml Vial) 5 mg IV Q4H PRN PRN PRN Reason: Breakthrough nausea/vomiting Sodium Chloride (0.9% Saline Lock 10 Ml Syringe) 10 - 40 ml IV UD PRN PRN Reason: SALINE FLUSH Last Admin: 04/10/20 05:02 Dose: 10 ml Documented by: Throat Lozenges (Benzocaine/Menthol 1 Lozenge) 1 lozenge MUCOUS MEM Q2H PRN PRN PRN Reason: SORE THROAT Discharge Activity: - - Please continue mild to moderate activity only until re- evaluation per Dr. Pérez. Call your doctor if you observe: Fever of 101 or Higher, Inability to urinate, Inability to have a bowel movement, Shortness of breath, Dizziness, Fainting spells, Chest pain, Uncontrolled pain, - - We have decreased your metoprolol regimen and continued your norvasc for blood pressure and your history of ventricular tachycardia. Please monitor your blood pressure and if needed hold these medications if they remain low normal, while also immediately letting your primary care physician know. Home Medications: Medications to take at Discharge amlodipine 5 mg tablet 5 mg PO DAILY 07/17/17 Levothyroxine Sodium [Synthroid] 150 mcg PO DAILY 03/24/20 Amox/Clavulanate Tablet [Augmentin Tablet] 875 mg PO Q12H #12 tab 04/10/20 Ferrous Gluconate 324 mg PO BID #60 tab 04/10/20 Metoprolol(XL)Succ [Toprol Xl (Beta Mady)] 25 mg PO DAILY #30 tab 04/10/20 Pantoprazole Sodium [Protonix] 40 mg PO BID #60 tab 04/10/20 Potassium Chloride [K-Dur] 20 meq PO BIDCM #60 tab 04/10/20 Following Prescriptions Were Given to Patient: Amox/Clavulanate Tablet [Augmentin Tablet] 875 mg PO Q12H #12 tab Transmission Status: Received by [facility] Ferrous Gluconate 324 mg PO BID #60 tab Transmission Status: Received by [facility] Potassium Chloride [K-Dur] 20 meq PO BIDCM #60 tab Transmission Status: Received by [facility] Pantoprazole Sodium [Protonix] 40 mg PO BID #60 tab Transmission Status: Received by [facility] Metoprolol(XL)Succ [Toprol Xl (Beta Mady)] 25 mg PO DAILY #30 tab Transmission Status: Received by [facility] Primary Care Physician: Pushpa Smith MD [Primary Care Provider] - Please follow up with your Primary Care Physician in: Follow-up within 2-3 days of discharge. Please Follow Up With: Rk Pérez MD When: Follow-up within 1-2 weeks, call earlier if concerns. Patient Instructions: When You Have Gastrointestinal (GI) Bleeding, Anemia, Lower GI Endoscopy Disposition: Home Minutes spent on discharge:: 35 Patient Condition:: Fair Medical Necessity - Tobacco Use Smoking Status: Never smoker Tobacco Use: Non-smoker Meaningful Use Info Meaningful Use Diagnoses (Choose all that apply): None applicable Inpatient E&M: [id number] [facility]
[2020-04-10 14:34] VITALS: BP 115/76; PULSE 88; RESP 18; TEMP 36.9; O2SAT 96
== END 2020-04-10 15:25 | disposition home or self-care (01) | DRG 811 ==
LOC: ED 11:03 → MS3 11:36 → ICU 04-07 01:13 → PCU 04-09 17:52
PROVIDERS: Hospitalist; Internal Medicine Critical Care Medicine; Surgery; Admitting Provider Family Medicine; Emergency Provider Emergency Medicine; PCP Family Medicine; Visit Provider Family Medicine
PROC: 0DJD8ZZ Inspection of Lower Intestinal Tract, Via Natural or Artificial Opening Endoscopic (ICD-10-PCS; CPT 45378; principal; 2020-04-08 10:55)
DX: D62 Acute posthemorrhagic anemia (principal); R57.8 Other shock; I47.2 Ventricular tachycardia; Z68.43 Body mass index [BMI] 50.0-59.9, adult; K63.3 Ulcer of intestine; K62.5 Hemorrhage of anus and rectum; K57.30 Diverticulosis of large intestine without perforation or abscess without bleeding; K52.9 Noninfective gastroenteritis and colitis, unspecified; E87.6 Hypokalemia; K44.9 Diaphragmatic hernia without obstruction or gangrene; I95.9 Hypotension, unspecified; I10 Essential (primary) hypertension; E03.9 Hypothyroidism, unspecified; E78.5 Hyperlipidemia, unspecified; I34.0 Nonrheumatic mitral (valve) insufficiency; Z86.19 Personal history of other infectious and parasitic diseases; E66.01 Morbid (severe) obesity due to excess calories; E78.00 Pure hypercholesterolemia, unspecified; Z87.19 Personal history of other diseases of the digestive system; Z87.11 Personal history of peptic ulcer disease; K21.9 Gastro-esophageal reflux disease without esophagitis; Z79.82 Long term (current) use of aspirin; Z79.899 Other long term (current) drug therapy
CPT/HCPCS: 36415; 71275; 74177; 80048; 80053; 81001; 82728; 82962; 83605; 83615; 83735; 84145; 85014; 85018; 85025; 85027; 85379; 86140; 86850; 86900; 86901; 86920; 87493; 87506; 88305; 88331; 88341; 88342; 93970; 99251; 99284; J7030; J7040; J7050; J7120; P9016; Q9967; A4216; G0463; J2405; J3490